=== PATIENT | female | born 1995 | race Caucasian/White ===

== ENCOUNTER 2023-04-10 18:10 | Emergency (ER) | payer MEDICAID, SELFPAY ==
[2023-04-10 18:12] VITALS: BP 134/97; PULSE 65; RESP 19; TEMP 36.6; O2SAT 99; BMI 36.3
--- NOTE | 2023-04-10 18:51 | ED.VIS.DENTA ---
HPI History of Present Illness Chief Complaint: Dental Informant: patient Onset/Context/Timing Onset: Weeks Context: Gradual Onset Timing: Intermittent Quality: Throbbing, aching Location: Left lower molars Worsened by: Nothing Relieved by: NSAIDs Associated Symptoms Assocated Symptom - Dental: jaw swelling, face swelling, cold sensitivity and hot sensitivity; Negative for fever Narrative Narrative: Patient presents with left lower dental pain that has been getting worse over the past couple weeks. Patient recently moved to the area and does not have a dentist. Patient states her pain is throbbing and aching. Patient states it is over the left lower molars. Patient states she has been taking ibuprofen which has been helping until today. Patient admits to some swelling of her jaw and face today. Patient also admits to hot and cold sensitivity. Patient denies any fevers or chills. PFSH PFSH Medical History no medical history no medical history Home Medications clindamycin HCl 300 mg capsule (Cleocin HCl) 300 mg PO Q6H #40 CAPSULES 04/10/23 [Rx Last Taken Unknown] naproxen 500 mg tablet 500 mg PO BID PRN #20 tabs 04/10/23 [Rx Last Taken Unknown] Allergy/AdvReac Type Severity Reaction Status Date / Time amoxicillin Allergy Anaphylaxis Verified 04/10/23 18:30 Penicillins Allergy Anaphylaxis Verified 04/10/23 18:12 Surgical History History of tonsillectomy Social History (Updated 04/10/23 @ 18:[address] Dylon Faulkner DO) Smoking Status: Current every day smoker tobacco type: cigarettes Smoking packs per day: 0.5 Smoking cigarettes per day: 10.0 ROS ROS ED Constitutional Constitutional ED: Denies chills or fever(s) Eyes Eyes: Denies blurry vision or change in vision ENT ENT ED: Denies rhinorrhea or sore throat Cardiovascular Cardiovascular: Denies chest pain or palpitations Respiratory/Chest Respiratory/Chest: Denies cough or dyspnea Gastrointestinal Gastrointestinal: Denies nausea or vomiting Genitourinary Genitourinary ED: Denies dysuria or hematuria Musculoskeletal Musculoskeletal: Reports neck pain; Denies back pain Integumentary Reports rash; Denies abscess Neurologic Neurologic: Denies headache(s) or weakness Allergic/Immunologic Allergic/Immunologic ED: Denies mouth swelling or urticaria EXAM Physical Exam Const Vital Signs: 04/10/23 18:12 Temperature 97.8 F Temperature Source Temporal Pulse Rate 65 Respiratory Rate 19 H Blood Pressure 134/97 H Blood Pressure Mean 109 Pulse Ox 99 Oxygen Delivery Method Room Air Positive well nourished, well developed and obese General Appearance ED: well developed and NAD Nutritional Appearance: obese HEENT Mouth ED: Yes lips normal and Yes tongue normal Mouth: lips normal and tongue normal Teeth and Gingiva: caries and poor dentition Throat: posterior oropharynx normal Neck supple and no JVD General: Negative for anterior neck swelling, tenderness or submandibular swelling Neuro oriented x3, CN's II-XII intact bilaterally, moves all extremities, no focal motor deficits and no sensory deficits noted Sensorium / Orientation: alert Motor Exam: strength 5/5 throughout Psych mental status grossly normal MDM MDM MDM Narrative Medical decision making narrative: Patient was advised that this is most likely an infected dental carry. Patient was instructed to stop taking ibuprofen. Patient was given a prescription for Naprosyn. Patient was also given a prescription for clindamycin due to her penicillin allergy. Patient was given her first dose here. Patient was given a dental referral list. Patient was instructed to follow-up with a dentist in 5 to 7 days. Patient understood and was agreeable with the plan. All questions were answered. Discharge Plan Triage Chief Complaint: Dental ED Provider: Dylon Faulkner Dx/Rx/DC Orders Clinical Impression: Infected dental caries Instructions: ED Dental Pain, ED Dental Cavity Prescriptions: New clindamycin HCl [Cleocin HCl] 300 mg capsule 300 mg PO Q6H Qty: 40 0RF naproxen 500 mg tablet 500 mg PO BID PRN Qty: 20 0RF Primary Care Provider: Care Physician,No Primary Referrals: Care Physician,No Primary [Primary Care Provider] - Dentist,Your [STAFF PHYSICIAN] - 5-7 Days Disposition Disposition: Home, Self Care
[2023-04-10] MEDS: Clindamycin HCl 150 MG Capsule 300 MG PO (19:08)
[2023-04-10] MEDS: Naproxen 250 MG Tablet 500 MG PO (19:08)
== END 2023-04-10 19:11 | disposition home or self-care (01) ==
LOC: ED 19:06
PROVIDERS: Emergency Provider Emergency Medicine; Visit Provider Emergency Medicine
DX: K02.9 Dental caries, unspecified (principal); F17.210 Nicotine dependence, cigarettes, uncomplicated; E66.9 Obesity, unspecified; Z68.36 Body mass index [BMI] 36.0-36.9, adult
CPT/HCPCS: 99283

== ENCOUNTER 2023-04-21 04:09 | Emergency (ER) | payer MEDICAID, SELFPAY ==
[2023-04-21 04:10] VITALS: BP 164/84; PULSE 81; RESP 16; TEMP 36.6; O2SAT 99; BMI 35.2
--- NOTE | 2023-04-21 04:27 | EX.ED.DYSGE1 ---
HPI History of Present Illness Chief Complaint: Foreign Body Informant: patient Narrative Narrative: Woke up today feeling pain in her ear felt something moving. She tried flushing with warm water however states that went deeper. Pain with movement. No history of similar. Prior similar symptoms: No PFSH PFSH Home Medications clindamycin HCl 300 mg capsule (Cleocin HCl) 300 mg PO Q6H #40 CAPSULES 04/10/23 [Rx Last Taken Unknown] naproxen 500 mg tablet 500 mg PO BID PRN #20 tabs 04/10/23 [Rx Last Taken Unknown] Allergy/AdvReac Type Severity Reaction Status Date / Time amoxicillin Allergy Anaphylaxis Verified 04/21/23 04:12 Penicillins Allergy Anaphylaxis Verified 04/21/23 04:12 Surgical History History of tonsillectomy Social History Smoking Status: Current every day smoker tobacco type: cigarettes ROS ROS ED Constitutional Constitutional ED: Denies chills, fever(s) or sweats Eyes Eyes: Denies change in vision ENT ENT ED: Reports ear pain; Denies dysphagia or sore throat Cardiovascular Cardiovascular: Denies chest pain, leg edema, palpitations or racing heartbeat Respiratory/Chest Respiratory/Chest: Denies cough, dyspnea or dyspnea on exertion Gastrointestinal Gastrointestinal: Denies abdominal pain, diarrhea, nausea or vomiting Genitourinary Genitourinary ED: Denies dysuria, hematuria or urinary frequency Musculoskeletal Musculoskeletal: Denies back pain, extremity pain or neck pain Integumentary Denies rash or wounds Neurologic Neurologic: Denies headache(s), paresthesias or weakness EXAM Physical Exam Const Vital Signs: 04/21/23 04:10 Temperature 97.8 F Temperature Source Temporal Pulse Rate 81 Respiratory Rate 16 Blood Pressure 164/84 H Blood Pressure Mean 110 Pulse Ox 99 Positive well nourished and well developed General Appearance ED: well developed and NAD HEENT Reports moist mucous membranes HEENT Narrative: Left ear: Normal. Right ear: After viscous lidocaine placed and observed, evaluation noted insect, removed with suction. TM intact post suctioning and removal. normocephalic and atraumatic Eyes PERRL, EOMs intact bilaterally and conjunctivae normal General Eye ED: Yes normal appearance of both eyes Neck no lymphadenopathy and supple General: Negative for tenderness Chest Wall Chest: Negative for tenderness Resp normal respiratory effort and normal air movement Effort and Inspection: symmetric chest movement; Negative for respiratory distress Cardio regular rate, regular rhythm and no murmurs Peripheral Pulses: pulses 2+ throughout GI normal to inspection, nondistended, normoactive bowel sounds and non-tender Palpation: Negative for guarding or rebound tenderness present Back/Spine no CVA tenderness and no thoracic nor lumbar tenderness Extremity normal to inspection General Extremety ED: Negative for edema or tenderness General Extremity: Negative for edema Neuro oriented x3 and no sensory deficits noted Sensorium / Orientation: awake and alert Skin no rashes or lesions noted and no wounds MDM MDM MDM Narrative Medical decision making narrative: Interventions / MDM: Differential diagnosis: Right ear pain, foreign body Diagnosis considered but do not suspect: N/A My EKG interpretation: N/A Imaging independently reviewed and interpreted by myself: N/A External documents reviewed: N/A Test considered but not ordered:N/A ED course: History concerns for insect right ear. Viscous lidocaine placed, removal with Carroll tip. TM intact post removal. Outpatient follow-up as needed. Procedure note: Verbal consent. Viscous lidocaine placed in the ear and allowed to sit, ear evaluation did note insect external canal. 10 [place] Carroll tip to suctioning was placed, removal fluid and insect. Residual earwax also removed. TM evaluation was intact with no signs of injury. Patient tolerated procedure well. Re-evaluation: stable Disposition discussed with patient/family/significant other: patient Case discussed with consulting clinician: N/A This note was generated with [employer] dictation software. It may contain incorrect words, spelling, and punctuation that were not noted in checking the note before signing. Discharge Plan Triage Chief Complaint: Foreign Body ED Provider: Vic Fink Dx/Rx/DC Orders Clinical Impression: Foreign body in right ear, initial encounter Instructions: ED Foreign Body, Ear Canal (Removed) Prescriptions: No Action clindamycin HCl [Cleocin HCl] 300 mg capsule 300 mg PO Q6H Qty: 40 0RF naproxen 500 mg tablet 500 mg PO BID PRN Qty: 20 0RF Primary Care Provider: Care Physician,No Primary Referrals: Michael Willoughby MD [Med Staff - Active Staff] - As Needed Care Physician,No Primary [Primary Care Provider] - Activity Restrictions/Additional Instructions: Insect in ear removed. No signs of injury. Disposition Disposition: Home, Self Care Discharge Date/Time: 04/21/23 05:09
== END 2023-04-21 05:09 | disposition home or self-care (01) ==
PROVIDERS: Emergency Provider Emergency Medicine; Visit Provider Emergency Medicine
DX: T16.1XXA Foreign body in right ear, initial encounter (principal); F17.210 Nicotine dependence, cigarettes, uncomplicated; X58.XXXA Exposure to other specified factors, initial encounter
CPT/HCPCS: 99282

== ENCOUNTER 2023-10-03 14:01 | Emergency (ER) | payer MEDICAID, SELFPAY ==
[2023-10-03 14:02] VITALS: BP 120/67; PULSE 80; RESP 18; TEMP 36.4; O2SAT 97; BMI 34.7
--- NOTE | 2023-10-03 14:55 | RAD_ITS ---
INDICATION: fall EXAMINATION/TECHNIQUE: X-RAY - XR Ribs Unilateral W/ PA Chest Min 3 Views COMPARISON: No relevant prior comparison study available FINDINGS: SOFT TISSUES: No soft tissue swelling or gas. BONES: No displaced fracture. No sclerotic or destructive changes observed. VISUALIZED LUNGS: Clear. No pneumothorax. RAD/Ribs Uni Min 3V w/PA Chest IMPRESSION: No evidence of displaced rib fracture. Electronically Signed: Nitin Flannery MD at 15:36 EST ,
--- NOTE | 2023-10-03 14:55 | EX.ED.UPPERE ---
HPI <JODEE Barnes - Last Filed: 10/03/23 16:00> History of Present Illness Chief Complaint: Upper Extremity Injury Narrative Narrative: Patient is a 28-year-old female with no significant ankle history presents to the emergency department after mechanical fall. Patient states he fell down 3 steps jamming her left elbow. Patient also states she landed on her left ribs. Patient denies any other injury, denies any head or neck injury. She denies any LOC. She is on any blood thinners [facility] <JODEE Barnes - Last Filed: 10/03/23 16:00> [facility] Medical History (Updated 10/03/23 @ 15:59 by JODEE Barnes) Anxiety Depression Home Medications gabapentin 300 mg capsule 300 mg PO BID 10/03/23 [History Last Taken Unknown] ibuprofen 600 mg tablet 600 mg PO Q6H PRN PRN pain #20 TABLETS 10/03/23 [Rx Last Taken Unknown] Allergy/AdvReac Type Severity Reaction Status Date / Time amoxicillin Allergy Anaphylaxis Verified 10/03/23 14:02 Penicillins Allergy Anaphylaxis Verified 10/03/23 14:02 Surgical History History of tonsillectomy Social History Smoking Status: Current every day smoker tobacco type: cigarettes ROS <JODEE Barnes - Last Filed: 10/03/23 16:00> ROS ED ROS Narrative Constitutional: Negative for fever, chills, weight loss, weakness Eyes: Negative for vision loss, vision change, double vision ENT: Negative for any sore throat, ear pain, congestion Cardiovascular: Negative for any chest pain, tightness, palpitations Respiratory: Negative for any cough, sputum production, hemoptysis, dyspnea, dyspnea on exertion, orthopnea Gastrointestinal: Negative for any abdominal pain, nausea, vomiting, diarrhea, constipation, blood in stool, blood in vomit : Negative for any urinary frequency, dysuria, retention, blood in urine Muscle skeletal: Negative for any myalgias, arthralgias, neck pain, back pain. Left elbow pain, left rib pain Neurological: Negative for any headache, syncope, numbness or tingling, dizziness Skin: Negative for any rashes, lumps, itching, abrasions, lacerations Psychiatric: Negative for any depression, anxiety, stress, suicidal ideation, homicidal ideation Hematologic: Negative for any easy bruising, excessive bruising, easy bleeding Allergies: Negative for any eczema, hives, rash EXAM <JODEE Barnes - Last Filed: 10/03/23 16:00> Physical Exam Narrative Exam Narrative: Vital signs reviewed. HEET: Head normocephalic atraumatic, TMs clear bilaterally. Posterior pharynx is clear, moist mucous membranes. Nares clear bilaterally. Neck: Supple with no lymphadenopathy or tenderness. No signs of meningismus. Cardiac: Regular rate and rhythm no murmurs gallops or rubs, equal peripheral pulses bilaterally. Respiratory: Lungs clear to auscultation bilaterally. Positive left-sided chest tenderness, negative for any crepitus, ecchymosis. Clear breath sounds in all quadrants Abdomen: Soft, nontender, nondistended. No abdominal bruit or pulsatile masses. No hepatosplenomegaly Extremities: Patient no ecchymosis, edema. Patient does have pain to the proximal radial head. Patient has pain with movement of the elbow. Neuro: Cranial nerves II through XII intact, no focal neurological deficits. Skin: Clean dry and intact with no rash, purpura, petechiae, vesicles or pustules. Backs/flank: No CVA tenderness, no midline spinal tenderness, no deformity. Psych: Normal mood and affect. No SI, HI or acute psychosis. Const Vital Signs: 10/03/23 14:02 Temperature 97.6 F L Temperature Source Temporal Pulse Rate 80 Respiratory Rate 18 Blood Pressure 120/67 Blood Pressure Mean 84 Pulse Ox 97 Oxygen Delivery Method Room Air MDM <JODEE Barnes - Last Filed: 10/03/23 16:00> [facility] Treatment and Re-Evaluation Narrative: Patient appears generally well, patient appears nontoxic, vital signs are stable. Presenting to the emergency department with left elbow pain, left rib pain. Patient did receive 3 views of left elbow interpreted by ER physician showed no evidence of acute fracture. X-rays of the left ribs the chest shows no evidence of displaced rib fracture. At this time, patient will be given a prescription for ibuprofen, she will be given a sling for her left arm. She is instructed take it out multiple times a day and perform general range of motion activities. All questions were answered, she instructed return for any worsening symptoms. <Dr. Titi Zaragoza, DO - Last Filed: 10/03/23 22:15> [facility] Narrative Medical decision making narrative: Patient appears generally well, patient appears nontoxic, vital signs are stable. Presenting to the emergency department with left elbow pain, left rib pain. Patient did receive 3 views of left elbow interpreted by ER physician showed no evidence of acute fracture. X-rays of the left ribs the chest shows no evidence of displaced rib fracture. At this time, patient will be given a prescription for ibuprofen, she will be given a sling for her left arm. She is instructed take it out multiple times a day and perform general range of motion activities. All questions were answered, she instructed return for any worsening symptoms. This patient was seen with a PA/[facility] Individually assessed they patient including history and physical. I have reviewed everything on the chart that is available and agree with the documentation provided by the PA/[facility] including discussion about the assessment, treatment plan, discussion, and return precautions. With left elbow pain and left rib pain after mechanical fall. X-rays of the left elbow and left ribs on my interpretation no acute fractures. Patient counseled on findings. I recommended Tylenol and ibuprofen. She was given 1 [place] here. Placed in a sling for comfort. She is counseled to range of motion exercises. Ice and heat. Discharge Plan Triage Chief Complaint: Upper Extremity Injury ED Midlevel Provider: Adeel Carlton ED Provider: Titi Zaragoza Dx/Rx/DC Orders Clinical Impression: Contusion of elbow, Contusion of rib, Fall Instructions: Bruises (Contusions), ED Contusion, Elbow Prescriptions: New ibuprofen 600 mg tablet 600 mg PO Q6H PRN PRN (Reason: pain) Qty: 20 0RF No Action gabapentin 300 mg capsule 300 mg PO BID Primary Care Provider: Care Physician,No Primary Referrals: Care Physician,No Primary [Primary Care Provider] - Activity Restrictions/Additional Instructions: Take the arm out of the sling several times a day to do range of motion exercises. Follow-up outpatient. Disposition Disposition: Home, Self Care Discharge Date/Time: 10/03/23 16:14
[2023-10-03] MEDS: HYDROcodone Bitartrate/Apap 5/325 Tablet PO (15:01)
--- NOTE | 2023-10-03 15:17 | RAD_ITS ---
INDICATION: fall EXAMINATION/TECHNIQUE: X-RAY - LEFT XR Elbow Min 3 Views COMPARISON: No relevant prior comparison study available FINDINGS: SOFT TISSUES: No soft tissue swelling or gas. No radiopaque foreign body. BONES/JOINTS: There is no displacement of the anterior or posterior fat pads. No acute fracture or subluxation. Normal alignment. Preservation of the joint space. No sclerotic or destructive changes observed. RAD/Elbow min 3 Views IMPRESSION: No evidence of acute fracture. Electronically Signed: Nitin Flannery MD at 15:34 EST ,
== END 2023-10-03 16:14 | disposition home or self-care (01) ==
PROVIDERS: Emergency Provider Student in an Organized Health Care Education/Training Program; Visit Provider Student in an Organized Health Care Education/Training Program
DX: S50.02XA Contusion of left elbow, initial encounter (principal); S20.219A Contusion of unspecified front wall of thorax, initial encounter; F17.210 Nicotine dependence, cigarettes, uncomplicated; W10.9XXA Fall (on) (from) unspecified stairs and steps, initial encounter
CPT/HCPCS: 71101; 73080; 99283

== ENCOUNTER 2025-05-07 15:13 | Emergency (ER) | payer MEDICAID, SELFPAY ==
[2025-05-07 15:14] VITALS: BP 138/90; PULSE 76; RESP 16; TEMP 35.6; O2SAT 98; BMI 31.7
[2025-05-07 15:46] LABS: Hematocrit 41.0 % (37-47); Hemoglobin 14.3 g/dL (12.0-15.0); Immature Granulocytes Count 0.030 X10^3/uL (0.0-0.0); Mean Corp Hgb Conc 34.9 g/dL (32-36); Mean Corpuscular Volume 82.0 fL (81-99); Mean Platelet Vol. 10.2 fl (6.2-12.0); NRBC Flagged by Analyzer 0 % (0-5); Platelet Count 364 K/mm3 (150-450); RBC Distribution Width CV 12.3 % (11.6-14.6); RBC Distribution Width SD 36.8 fl (35.1-43.9); Red Blood Count 5.00 M/mm3 (4.2-5.4); White Blood Count 10.0 K/mm3 (4.4-11.0)
[2025-05-07] MEDS: 0.9% Normal Saline (1000mL) 1,000 ML 1000 ML IV ×2 (16:01→17:00)
--- NOTE | 2025-05-07 16:05 | EDS_ITS ---
HPI History of Present Illness Chief Complaint: Nausea/Vomiting/Diarrhea Detail of Chief Complaint: Illness with nausea, vomiting and diarrhea with onset May 03 Informant: patient and spouse/S.O. Onset/Context/Timing Onset: Days Context: Sudden Onset Timing: Intermittent Quality: Initially diarrhea, now nausea and vomiting and generalized weakness Location: Systemic symptoms and predominantly GI Current Severity: Mild Maximum Severity: Severe Worsened by: Nothing Relieved by: Nothing Associated Symptoms Associated Symptoms: Subjective fever, chills, diaphoresis Narrative Narrative: Patient is a 30-year-old female. She completed her menses on May 05. Her menses was normal for her. She denies signs or symptoms of . She d enies double vision, blurred vision or change in vision. She does report bifrontal head discomfort. She also reports light sensitivity. She does complain of ear pain bilaterally. She denies ringing in her ears or decreased hearing. She denies drainage from her ears. She denies rhinorrhea. She denies postnasal drainage. She had some mild congestion initially. She does endorse a sore throat. She has a slight cough that is nonproductive. She denies chest discomfort of any type. She has not had diarrhea since . She has not had vomiting today. The vomiting started after the diarrhea. She denies any ill contact. She denies coffee-ground emesis or hematemesis. Patient does endorse decreased urine output, thirst and dry mouth. Her urine is slightly darker than normal. She denies any blood or mucus in her diarrhea. She has no history of IBS or IBD. She has not noted any skin lesions. She does complain of myalgias arthralgias. Prior similar symptoms: Yes Recent Illness/Hospitalization: No [facility] Medical History Anxiety Depression Home Medications ?Medication ?Instructions ?Recorded ?Last Taken ?Type ondansetron 4 mg disintegrating 4 mg PO Q8H PRN PRN Na usea #6 tabs 05/07/25 Unknown Rx tablet Allergy/AdvReac Type Severity Reaction Status Date / Time amoxicillin Allergy Anaphylaxis Verified 10/03/23 14:02 Penicillins Allergy Anaphylaxis Verified 10/03/23 14:02 Surgical History History of tonsillectomy Social History (Updated 05/07/25 @ 16:[address] Galindo Self MD) household members: significant other Smoking Status: Current every day smoker tobacco type: cigarettes and e- cigarettes ROS ROS ED Constitutional Constitutional ED: Reports chills, fever(s), subjective and sweats; Denies weight loss Eyes Eyes: Reports other Details: Positive photophobia ; Denies blurry vision, change in vision or diplopia ENT ENT ED: Reports other Details: Nasal congestion that is resolved ; Denies ear pain, rhinorrhea or sore throat Cardiovascular Cardiovascular: Denies chest pain, orthopnea, palpitations or paroxysmal nocturnal dyspnea Respiratory/Chest Respiratory/Chest: Denies cough, dyspnea, dyspnea on exertion, orthopnea or paroxysmal nocturnal dyspnea Gastrointestinal Gastrointestinal: Reports abdominal pain, diarrhea, nausea and vomiting; Denies constipation or melena Genitourinary Genitourinary ED: Reports other Details: Detailed HPI narrative ; Denies dysuria, hematuria or urinary frequency Musculoskeletal Musculoskeletal: Reports arthralgias and myalgias; Denies back pain Integumentary Denies rash Neurologic Neurologic: Reports weakness; Denies headache(s) or paresthesias Psychiatric Psychiatric: Denies anxiety Endocrine Endocrinology: Denies cold intolerance or heat intolerance Hematologic/Lymphatic Hematologic/Lymphatic: Reports systems reviewed and no addt'l complaints, except as documented Allergic/Immunologic Allergic/Immunologic ED: Denies mouth swelling or tongue swelling EXAM Physical Exam Const Vital Signs: 05/07/25 15:14 Temperature 96.1 F L Temperature Source Temporal Pulse Rate 76 Respiratory Rate 16 Blood Pressure 138/90 H Blood Pressure Mean 106 Pulse Ox 98 Oxygen Delivery Method Room Air Positive well nourished and well developed Constitutional Narrative: BMI is 31.7. She appears ill. She is flushed. She is slightly diaphoretic. General Appearance ED: well developed; Negative for cyanotic, diaphoretic, NAD or pallor HEENT Reports dry mucous membranes HEENT Narrative: Head is atraumatic normocephalic. Ears normal. TMs normal. External auditory canal normal. Nares patent with no discharge. Posterior pharynx out erythema or exudate. Uvula midline. No deviation tongue or protrusion. Mouth ED: Yes dry mucous membranes Mouth: dry mucous membranes Eyes PERRL and EOMs intact bilaterally General Eye ED: Negative for pale conjunctiva or scleral icterus Neck no lymphadenopathy, supple and no JVD Chest Wall inspection of chest normal and palpation of chest normal Resp normal respiratory effort and clear to auscultation bilaterally Cardio regular rate, regular rhythm, S1 normal heart sound, S2 normal heart sound and no murmurs GI normal to inspection, nondistended, normoactive bowel sounds, non-tender, non- distended and no masses; Negative for hepatosplenomegaly Inspection: abdominal distention Auscultation: hypoactive bowel sounds Palpation: soft and tender periumbilical Back/Spine no CVA tenderness Thoracic Spine / Upper Back: Negative for thoracic spinal tenderness Lumbar Spine / Lower Back: Negative for lumbar spinal tenderness Extremity normal to inspection General Extremety ED: Negative for edema or tenderness General Extremity: Negative for edema Neuro oriented x3, CN's II-XII intact bilaterally and no sensory deficits noted Sensorium / Orientation: alert Motor Exam: strength 5/5 throughout Psych Mood & Affect: depressed Skin no rashes or lesions noted, no wounds and No skin turgor normal Skin Narrative: Patient appears flushed. She is diaphoretic. General Skin Exam: Negative for elasticity normal, jaundice or pallor MDM MDM MDM Narrative Medical decision making narrative: Suspect a viral illness. Clinically she is dehydrated. 1 L of normal saline was ordered. Zofran was ordered for her nausea. Will obtain CBC to assess H&H white count differential. Electrolyte panel assess renal function, CO2 anion gap and electrolytes and specifically evaluate for hypokalemia. Since she reports a normal menses no signs or symptoms of and she is presently not menstruating test was not obtained. Lab Data Attestation: I reviewed the patient's lab results. Lab results narrative: CBC is normal. Serum test is negative. Electrolytes reveal a high anion gap acidosis otherwise unremarkable. Labs: Laboratory Results - last 24 hr 05/07/25 05/07/25 15:30 17:35 WBC 10.0 RBC 5.00 Hgb 14.3 Hct 41.0 MCV 82.0 MCH 28.6 MCHC 34.9 RDW Std Deviation 36.8 RDW Coeff of Olga 12.3 Plt Count 364 MPV 10.2 Immature Gran % (Auto) 0.300 Neut % (Auto) 49.6 Lymph % (Auto) 39.4 [place] % (Auto) 8.6 Eos % (Auto) 1.3 Baso % (Auto) 0.8 Absolute Neuts (auto) 4.9 Absolute Lymphs (auto) 3.93 Nucleated RBC % 0 Sodium 135 Potassium 3.4 Chloride 100 Carbon Dioxide 18.2 L Anion Gap 17 H BUN 9 Creatinine 1.07 Estim Creat Clear Calc 88.66 Est GFR (MDRD) Non-Af 71 BUN/Creatinine Ratio 8.3 L Glucose 93 Calcium 10.4 Serum , Qual NEGATIVE Urine Color Yellow Urine Clarity Cloudy Urine pH 6.0 Ur Specific [place] 1.020 Urine Protein 30 H Urine Glucose (UA) Normal Urine Ketones 5 H Urine Occult Blood 250 H Urine Nitrite Negative Urine Bilirubin Negative Urine Urobilinogen 1 H Ur Leukocyte Esterase 500 H Urine RBC 10-25 SEEN Urine WBC 25-50 SEEN Ur Squamous Epith Cells 10-25 SEEN Urine Bacteria 3+ Urine Mucus 0 SEEN Urinalysis consistent with a contaminated specimen. Specifically he is slightly elevated. There is protein urea and hematuria as well as ketones. Treatment and Re-Evaluation :: Nurse states the patient had minimal urine output. Approximately 10 cc. Second liter of normal saline was ordered. Patient feels much better after second liter. She is sitting up smiling. She is no longer pale in appearance. She was informed of results. She be discharged to home with prescription for Zofran. Discharge Plan Triage Chief Complaint: Nausea/Vomiting/Diarrhea ED Provider: Galindo Self Dx/Rx/DC Orders Clinical Impression: Nausea, vomiting and diarrhea, Intermittent generalized abdominal pain, High anion gap metabolic acidosis, Acute dehydration, Elevated blood-pressure reading without diagnosis of hypertension Instructions: ED Gastroenteritis, Viral (Adult) Prescriptions: New ondansetron 4 mg tablet,disintegrating 4 mg PO Q8H PRN PRN (Reason: Nausea) Qty: 6 0RF Primary Care Provider: Care Physician,No Primary Referrals: Care Physician,No Primary [Primary Care Provider] - Activity Restrictions/Additional Instructions: Follow-up with your doctor if no improvement in 2 to 3 days. The name of your doctors on your insurance card issued to you by [employer] Print Language: Brazilian Disposition Disposition: Home, Self Care
[2025-05-07 16:11] LABS: Internal QC Validated? YES +Cl - CLEAR BKGD; Pregnancy, Serum, hCG Quali. NEGATIVE Negative; Record Kit Lot#, Serum Preg. 0000947241
--- OUTSIDE RECORDS SUMMARY | 2025-05-07 16:34 | XMS RPT_ITS | CCD ---
Author Organization [facility] Care Team Providers Care Director Of Claims Name Role Phone BRUCE MENDEZ Primary Care Unavailable LAVERN TURCIOS Attending Unavailable ANDREA, BRUCE Primary Care Unavailable LAVERN TURCIOS Attending Unavailable BRUCE MENDEZ Primary Care Unavailable BRIELLE ENGLE Attending Unavailable BRIELLE ENGLE Attending Unavailable BRIELLE ENGLE Referring Unavailable ANDREA, BRUCE Primary Care Unavailable ANDREA, BRUCE Primary Care Unavailable JAZLYN HOLLEY Attending Unavailable JAZLYN HOLLEY Attending Unavailable LEYDI JAZLYN Referring Unavailable ANDREA, BRUCE Primary Care Unavailable ANDREA, BRUCE Primary Care Unavailable LAVERN TURCIOS Attending Unavailable LAVERN TURCIOS Attending Unavailable ANDREA, BRUCE Primary Care Unavailable ANDREA, BRUCE Primary Care Unavailable ITZEL EMANUEL Attending Unavailable ANDREA, BRUCE Primary Care Unavailable VIC BROCK Attending Unavailable VIC BROCK Attending Unavailable VIC BROCK Referring Unavailable ANDREA, BRUCE Primary Care Unavailable ANDREA, BRUCE Primary Care Unavailable MARLI TADEO Attending Unavailable ANDREA, BRUCE Primary Care Unavailable SEAGRAVES, ANITA~[id number] SEAGRAVES Attending Unavailable SEAGRAVES, ANITA~[id number] SEAGRAVES Attending Unavailable SEAGRAVES, ANITA~[id number] SEAGRAVES Referring Unavailable ANDREA, BRUCE Primary Care Unavailable SEAGRAVES, ANITA~[id number] SEAGRAVES Referring Unavailable ANDREA, BRUCE Primary Care Unavailable SEAGRAVES, ANITA~[id number] SEAGRAVES Attending Unavailable SEAGRAVES, ANITA~[id number] SEAGRAVES Attending Unavailable SEAGRAVES, ANITA~[id number] SEAGRAVES Referring Unavailable ANDREA, BRUCE Primary Care Unavailable SEAGRAVES, ANITA~[id number] SEAGRAVES Attending Unavailable SEAGRAVES, ANITA~[id number] SEAGRAVES Referring Unavailable BRUCE MENDEZ Primary Care Unavailable BRUCE MENDEZ Primary Care Unavailable MANOHAR VICENTE Attending Unavailable MANOHAR VICENTE Attending Unavailable MANOHAR VICENTE Referring Unavailable BRUCE MENDEZ Primary Care Unavailable Care Physician, No Primary Primary Care Unava ilable Dylon Faulkner Attending Unavailable Vic Fink Attending Unavailable Care Physician, No Primary Primary Care Unava ilable Care Physician, No Primary Primary Care Unava ilable Titi Zaragoza Attending Unavailable Unavailable Primary Care Provider Unavailabl e BOWDEN, CHELSI Referring Unavailable BOWDEN, CHELSI Attending Unavailable BOWDEN, CHELSI Attending Unavailable BOWDEN, CHELSI Referring Unavailable BOWDEN, CHELSI Attending Unavailable BOWDEN, CHELSI Referring Unavailable BOWDEN, CHELSI Referring Unavailable Bruce Flower Attending Unavailable Bruce Flower Attending Unavailable ProviderDony Attending Provider Unavaila ble Allergies Allergy Classification Reported Allergen(s) Allergy Type Date of Onset Reaction(s) Facility (11 sources) Amoxicillin; Translations: [AMOXICILLIN] Drug Allergy 3 Hives [facility] Repository (11 sources) Penicillins; Translations: [PENICILLINS] Propensity to adverse reactions to drug (disorder) 3 Anaphylaxis [facility] Medications Current Medications Medication Drug Class(es) Dates Sig (Normalized) Sig (Original) ascorbic acid 500 mg oral tablet (2 sources) Vitamin C Start: 06-17-2024 take 1 tablet by mouth once daily ascorbic acid, vitamin C, (VITAMIN C) 500 mg tablet Take 1 tablet by mouth once daily. 90 tablet 06/17/2024 Active chlorhexidine gluconate 1.2 mg/ml mouthwash (1 source) Start: 11-04-2024 Chlorhexidine Gluconate (Peridex) 0.12 % mouthwash Active 15 ML MUCOUS MEM TWICE A DAY 473 November 04, 2024 12:00am clindamycin 300 mg oral capsule (2 sources) Lincosamide Antibacterial Start: 11-04-2024 take 1 capsule by mouth every eight hours Clindamycin Hcl 300 mg capsule Active 300 MG ORAL Q8H 21 November 04, 2024 12:00am Start: 04-10-2023 take 1 capsule by mo uth every six hours Clindamycin Hcl (Cleocin Hcl) 300 mg capsule Active 300 MG PO EVERY 6 HOURS 40 April 10, 2023 12:00am 24 hr desvenlafaxine succinate 50 mg extended release oral tablet (3 sources) Serotonin and Norepinephrine Reuptake Inhibitor Start: 11-04-2024 take 1 tablet by mouth once daily Desvenlafaxine Succinate 50 mg tablet extended release 24 hr Active MG ORAL DAILY November 04, 2024 12:00am Start: 05-02-2024 take 1 tablet by marycarmen th once daily, then take 1 tablet by mouth every twenty-four hours desvenlafaxine ER (PRISTIQ) 50 mg 24 hr tablet Take 50 mg by mouth once daily. 05/02/2024 Active doxycycline hyclate 100 mg oral tablet (1 source) Tetracycline-class Drug Start: 06-17-2024 End: 06-24-2024 take 1 tablet by mouth twice daily doxycycline (VIBRA-TABS) 100 mg tablet Take 1 tablet by mouth two times a day for 7 days. 14 tablet 06/17/2024 06/24/2024 Active ferrous sulfate 325 mg oral tablet (2 sources) Start: 06-17-2024 take 1 tablet by mouth once daily ferrous sulfate 325 mg (65 mg iron) tablet Take 1 tablet by mouth once daily. 90 tablet 06/17/2024 Active gabapentin 100 mg oral capsule (6 sources) Anti-epileptic Agent Start: 11-04-2024 take 1 mg by mouth three times daily Gabapentin 100 mg capsule Active MG ORAL THREE TIMES A DAY November 04, 2024 12:00am Start: 10-21-2023 gabapentin (NE URONTIN) 100 mg capsule 10/21/2023 Active levonorgestrel 0.728009 mg/hr intrauterine system (3 sources) Progestin, Progestin-containing Intrauterine Device Start: 07-11-2024 End: 07-09-2032 levonorgestrel (MIRENA) 21 mcg/24 hr (8 yrs) 52 mg IUD 1 Each by INTRAUTERINE route as directed. 1 Each 07/11/2024 07/09/2032 Active Start: 07-11-2024 End: 07-11-2024 1 Each, INTRAUTERINE, ONCE ( UP TO 30 DAYS AMB), 1 dose, On 07/11/24 at 1400, Hazardous Potential Reproductive Risk Drug: Use appropriate PPE. naproxen 500 mg oral tablet (1 source) Nonsteroidal Anti-inflammatory Drug Start: 04-10-2023 take 500 mg by mouth twice daily as needed Naproxen Active 500 MG PO TWICE DAILY NEEDED April 10, 2023 12:00am predniSONE 20 mg oral tablet (1 source) Start: 11-04-2024 take 2 tablets by mouth once daily Prednisone 20 mg tablet Active 40 MG ORAL DAILY 10 November 04, 2024 12:00am Problems Active Problems Problem Classification Problem Date Documented Date Episodic/Chronic Abdominal pain (5 sources) Epigastric pain; Translations: [Pain in female pelvis] Onset: 12-03-2018 06-03-2024 Episodic Disorders of teeth and jaw (3 sources) Dental caries; Translations: [Dental caries, unspecified] Onset: 04-16-2023 04-18-2023 Episodic Esophageal disorders (1 source) Gastro-esophageal reflux disease without esophagitis; Translations: [Gastro-esophageal reflux disease without esophagitis] Onset: 05-26-2018 Chronic Headache; including migraine (1 source) Cyclical vomiting, not intractable; Translations: [Cyclical vomiting, not intractable] Onset: 12-03-2018 Chronic Immunizations and screening for infectious disease (3 sources) Patient encounter status; Translations: [Encounter for screening for human papillomavirus (HPV)] 06-03-2024 Episodic Menstrual disorders (1 source) Irregular periods; Translations: [Irregular menstruation, unspecified] 07-11-2024 Chronic Other endocrine disorders (1 source) Polycystic ovary syndrome; Translations: [Polycystic ovarian syndrome] 06-17-2024 Chronic Other female genital disorders (2 sources) Abnormal uterine bleeding; Translations: [Abnormal uterine and vaginal bleeding, unspecified] 06-03-2024 Chronic Other female genital disorders (1 source) Abnormal uterine and vaginal bleeding, unspecified; Translations: [Abnormal uterine bleeding (AUB)] Onset: 06-03-2024 Chronic Other female genital disorders (3 sources) Pain on movement of cervix; Translations: [Unspecified condition associated with female genital organs and menstrual cycle] 06-03-2024 Episodic Other female genital disorders (1 source) Unspecified condition associated with female genital organs and menstrual cycle; Translations: [CMT (cervical motion tenderness)] Onset: 06-10-2024 Episodic Other injuries and conditions due to external causes (1 source) Foreign body in ear; Translations: [Foreign body in right ear, initial encounter] 04-21-2023 Episodic Other injuries and conditions due to external causes (1 source) Unspecified injury of left elbow, initial encounter; Translations: [Unspecified injury of left elbow, initial encounter] Onset: 10-08-2023 Episodic Other lower respiratory disease (1 source) Cough; Translations: [Cough] Onset: 01-24-2019 Episodic Other screening for suspected conditions (not mental disorders or infectious disease) (1 source) Cancer cervix screening status; Translations: [Encounter for screening for malignant neoplasm of cervix] 06-03-2024 Episodic Other upper respiratory disease (1 source) Nasal congestion; Translations: [Nasal congestion] Onset: 01-23-2019 Episodic Residual codes; unclassified (1 source) Unprotected sexual intercourse; Translations: [High risk heterosexual behavior] 06-03-2024 Episodic Residual codes; unclassified (1 source) Family history of malignant neoplasm of uterus; Translations: [Family history of malignant neoplasm of other genital organs] 06-03-2024 Episodic Residual codes; unclassified (1 source) Family history of malignant neoplasm of ovary; Translations: [Family history of malignant neoplasm of ovary] 06-03-2024 Episodic Residual codes; unclassified (1 source) Family history of breast cancer; Translations: [Family history of malignant neoplasm of breast] 06-03-2024 Episodic Residual codes; unclassified (1 source) High risk heterosexual behavior; Translations: [Unprotected sexual intercourse] Onset: 06-03-2024 Episodic Residual codes; unclassified (1 source) Pain, unspecified; Translations: [Pain, unspecified] Onset: 03-08-2018 Urinary tract infections (1 source) Acute cystitis with hematuria; Translations: [Acute cystitis with hematuria] Onset: 12-03-2018 Episodic Past or Other Problems Problem Classification Problem Date Documented Date Episodic/Chronic Acute bronchitis (1 source) Acute bronchitis, unspecified; Translations: [Acute bronchitis, unspecified] Onset: 10-22-2018 Episodic Fever of unknown origin (1 source) Fever, unspecified; Translations: [Fever, unspecified] Onset: 10-09-2018 Episodic Genitourinary symptoms and ill-defined conditions (1 source) Dysuria; Translations: [Dysuria] Onset: 06-21-2018 Episodic Inflammatory diseases of female pelvic organs (1 source) Abscess of vulva; Translations: [Abscess of vulva] Onset: 08-03-2018 Episodic Malaise and fatigue (1 source) Other malaise; Translations: [Other malaise] Onset: 10-09-2018 Episodic Nausea and vomiting (1 source) Bilious vomiting; Translations: [Bilious vomiting] Onset: 05-26-2018 Episodic Noninfectious gastroenteritis (1 source) Noninfective gastroenteritis and colitis, unspecified; Translations: [Noninfective gastroenteritis and colitis, unspecified] Onset: 03-08-2018 Episodic Nonspecific chest pain (1 source) Chest pain, unspecified; Translations: [Chest pain, unspecified] Onset: 03-20-2018 Episodic Other injuries and conditions due to external causes (1 source) Foreign body in right ear, initial encounter; Translations: [Foreign body in right ear, initial encounter] Onset: 04-27-2023 Episodic Sprains and strains (1 source) Strain of muscle and tendon of front wall of thorax, initial encounter; Translations: [Strain of muscle and tendon of front wall of thorax, initial encounter] Onset: 03-20-2018 Episodic Viral infection (1 source) Viral infection, unspecified; Translations: [Viral infection, unspecified] Onset: 10-09-2018 Episodic Results Test Name Value Interpretation Reference Range [facility]il [facility] Urgent Care Noteon Urgent Care Note [facility] [address] [address] Urgent Care Note Signed Patient: Cherelle Cosme MR#: [id number] : 1995 Acct: [id number] Age/Sex: 29 / F Loc: [facility] Date of Service: 11/04/[address]: 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 cc: Intake Vital Signs ([facility]) 11/04/24 18:37 Weight 95 kg BP 127/80 Respiration 16 Pulse 63 Temp 97 F Pulse Oximetry (%) 96 Intake Visit Reasons: mouth pain BP greater than 140/90: No Is patient in acute pain: Yes Allergies amoxicillin Allergy (Severe, Verified 11/04/24 18:40) Anaphylaxis Penicillins Allergy (Verified 11/04/24 18:40) Anaphylaxis Smoking risk assessment performed?: No Medications - Last Reconciled 11/04/24 by Shelly Christensen LPN desvenlafaxine succinate ER mg ORAL DAILY gabapentin mg ORAL TID Is last menstrual period known: Yes Last menstrual period: 10/24/24 Specific Travel Risk - COVID-19 Travel from high risk country; contact w/ high risk person(s): No COVID-19 Symptoms: No PHQ-2/9 . Over the last 2 weeks, how often have you been bothered by any of the following problems? 1. Little interest or pleasure in doing things: not at all 2. Feeling down, depressed, or hopeless: not at all PHQ-2: Total score: 0 9. Thoughts that you would be better off or of hurting yourself in some way: not at all 0-4 None-Minimal, 5-9 Mild, 10-14 Moderate, 15-19 Moderately Severe, 20-27 Severe If #9 is positive, and questions 3-10 are complete, then proceed to the C-SSRS Questionnaire. Source: Developed by Drs. Tobin Nunez, Brooke Knapp, Abdulkadir Baltazar and colleagues, with an educational gavino from [employer]. .. Nurse's Note Nurse's Note: Dental pain from a chipped wisdom tooth x10 days HPI Urgent Care HPI COVID-19 Testing ordered at today's visit? (Not Rapid/POC testing in clinic): No Patient notified of today's COVID test results/has an attempt been made to notify patient of results?: No Details: Presents with dental pain from a chipped wisdom tooth x10 days PFSH PFSH Medical History History of depression Surgical History Hx of tonsillectomy Social History Advance Directives: No Advance Directives Information Provided: No Advance Directives on File: No Would like to be referred to Press Operator Apprentice for info?: No History of depression Questionnaire C-SSRS (Primary Care) [employer] Review of Systems [facility] Const Denies body aches, Denies chills, Denies fever(s) and Denies headache(s) ENT Reports dental pain; Denies otalgia, facial pain, headache(s), sinus pain or sore throat Card Denies dyspnea Resp Denies cough or dyspnea GI Denies nausea and Denies vomiting Skin/Breast Denies rash or pruritus Neuro Denies headache(s) Exam (AMB) Const Common normals: Yes no acute distress, Yes oriented to situation, Yes healthy appearing and Yes alert General appearance: cooperative and comfortable Orientation/consciousness: awake HEENT Common normals: normocephalic, atraumatic, external ears normal, EAC's normal, TM's normal bilaterally and Normal external nose present Head and scalp: normocephalic and atraumatic Face and sinus: normal facial exam Nose: Normal external nose present General ear: No hearing grossly impaired External ear: external ears normal External auditory canal: EAC's normal Tympanic membrane: TM's normal bilaterally Mouth: Normal oral and palatal mucosa present Teeth and gingiva: abnormal tooth and associated gingiva Throat: posterior oropharynx normal Lymph Lymphatic: no lymphadenopathy noted Respiratory Common normals: normal respiratory effort and clear to auscultation bilaterally Auscultation: clear to auscultation bilaterally Cardio Common normals: regular rate and regular rhythm Rate: regular rate Rhythm: regular rhythm Heart sounds: no murmurs Neuro Common normals: moves all extremities Sensorium/orientation: alert Speech: speech normal Skin Common normals: Yes no rashes or lesions noted General skin exam: no rashes or lesions noted Quality Reporting (2018) Adult ([facility] 138/12/24/68) Smoking risk assessment performed?: No Assessment Plan (AMB) Assessment Plan (1) Pain, dental: Code(s): K08.89 - Other specified disorders of teeth and supporting structures Medications: New prednisone 40 mg (2 x 20 mg) ORAL DAILY 5 days 10 tabs 0RF K08.89 - Other specified disorders of teeth and supporting structures clindamycin HCl 300 mg ORAL Q8H 7 days 21 caps 0RF K08.89 - Other specified disorders of teeth and supporting structures chlorhexidine gluconate (more content not included)... Normal [facility] CNCOon 07-21-2024 CNCO Letter Text Normal [facility] CNOVon 07-11-2024 CNOV Office Visit (OBGYWM ) CHERELLE COSME ([id number]) 1995 F Date Time Provider Department 07/11/24 1:30 PM CHELSI BOWDEN OBYARELISWStepan During your visit today, we recorded the following information about you: Blood pressure Weight Last Period 122/74 93.9 kg 07/04/24 Chelsi Bowden APRN.CNM 07/11/2024 2:07 PM Signed Cherelle is a 29 year old who presents today for an endometrial biopsy for irregular menses. test: negative UNIVERSAL PROTOCOL / SAFETY CHECKLIST Procedure to be Performed: Endometrial biopsy Sign In: A Moment of CARE was completed. Personnel directly involved with the procedure wore the appropriate PPE (Personal Protective Equipment). No special equipment needed. Patient/Surrogate Stated/Verified: PATIENT VERIFIED(optional for EMERGENT procedures): Patient name, Date of , Relevant allergies, and The intended procedure Time Out Communication: Intended patient and procedure match the source documents. Consent documented and matches the intended procedure. Relevant labs, photos, and/or imaging studies have been reviewed. Correct side/site marked and visible. Medications required for procedure verified. No fire risk assessment and interventions applicable. Implant(s) inserted: Correct implant(s) confirmed including size and side. and Expiration date(s) reviewed. Sign Out: SIGN OUT (optional for EMERGENT procedures): All specimen containers correctly labeled. All instruments, equipment, possible retained foreign bodies accounted for. Post-procedure follow-up management communicated and Plan of Care Visit completed when applicable. PROCEDURE: EXTERNAL GENITALIA: Normal in appearance without lesions VAGINA: Normal in appearance without lesions BIOPSY: Speculum placed into the vagina with excellent visualization of the cervix. Cervix cleaned with betadine. Anterior lip of cervix grasped with single toothed tenaculum. Uterus sounded to 9 cm. Pipelle inserted into the uterus without difficulty and endometrial biopsy obtained. Specimen labeled and sent to pathology. Hemostasis achieved. Procedure Summary: Patient tolerated procedure well. ASSESSMENT: abnormal uterine bleeding PLAN: Specimens labeled and sent to Pathology. Will notify patient of results in 1-2 weeks. Post-procedure instructions reviewed and written material given to the patient. Chelsi Bowden APRN.CNM Cherelle presents today for IUD insertion for dysmenorrhea. Patient's last menstrual period was 07/04/2024 (within days). GC/chlamydia: Negative on 06/03/2024 test: negative Side effects including irregular bleeding were discussed with the patient. The patient understands that it should be removed in 8 years or sooner if the patient desires a . IUD source: office provided IUD lot #: [id number] Exp date: 07/02/2026 UNIVERSAL PROTOCOL / SAFETY CHECKLIST Procedure to be Performed: IUD Insertion The cervix was prepped with betadine. The uterus sounded to 9 cm and the uterus is Midposition.. Using sterile technique, the Mirena IUD was inserted without difficulty and the string was cut to 2 cm from the external os of the cervix. Patient tolerated procedure well. PLAN: Patient was advised to observe for signs and symptoms of infection including but not limited to fever, malodorous vaginal discharge and/or pain. The patient was told to check the string monthly for accurate placement. Bleeding expectations were reviewed. Follow up after next menses for string check. Chelsi Bowden APRN.JENNIFER CabreraChun hadley, WILLIAM 07/11/2024 1:31 PM Addendum YOUR RECOVERY After your biopsy you may have: Vaginal bleeding (less than a normal menstrual period) Mild cramping Do NOT put anything in the vagina for 1 week after your endometrial biopsy. This includes: tampons douches and refraining from having sexual intercourse If you have any discomfort, you may take an over the counter pain medication (motrin, advil, ibuprofen, tylenol, etc). If this does not relieve your discomfort, contact the office. It is okay to wear a sanitary pad until the discharge and spotting stops. RISKS Although problems seldom occur with endometrial biopsies, there can be some complications. You may feel faint during and shortly after the procedure as well as have some bleeding after the procedure. There is also a risk of infection after the procedure. These complications are rare and can be easily treated. You should contact you doctor is you have any of the following: Heavy bleeding (more than your normal period) Bleeding with clots Severe abdominal pain Fever (more than 100.4F) Foul smelling vaginal discharge RESULTS We will have the results of your biopsy in 1-2 weeks. If you do not hear the results of your biopsy after 2 weeks, please contact the office for the results. If you have any additiona (more content not included)... Normal [facility] SURGICAL PATHOLOGYon [address] [facility] Comment on above: Order Comment: Specimen Type: [facility]UE [facility]Order[facility] Facility: [facility] Address: [address] [place] [address] Result Comment: Surg ical Pathology Report Case: [id number] Authorizing Provider: Chelsi Bowden APRN.CNM Collected: 07/11/2024 02:10 PM Ordering Location: OB/Gynecology Received: 07/11/2024 04:30 PM Pathologist: Drea Belle MD Specimen: Endometrium, Biopsy Performed By: #### S ####[facility] [id number] [place] [address] [place] CLINICAL HISTORY Abnormal menses Normal [facility] Comment on above: Order Comment: Spec[facility] Type: [facility] Address: [address] [place] [address] Performed By: #### S ####[facility] [id number] [place] [address] [place] FINAL DIAGNOSIS Normal [facility] Comment on above: Order Comment: Specimen Type: [facility] Address: [address] [place] [address] Result Comment: Endo metrium, biopsy: - Proliferative endometrium with breakdown. Performed By: #### S ####[facility] LABIA [id number] [place] [address] [place] FINAL PERFORMING LAB Normal [facility] Comment on above: Order Comment: Specimen Type: [facility]UE [facility] Address: [address] [place] [address] Result Comment: Diag nostic interpretation performed at [facility] [address] [place] [address] CLIA# [id number] Chief Hydroelectric Station Operator: Isauro Grove M.D. Performed By: #### S ####[facility] LABIA [id number] [place] [address] [place] GROSS DESCRIPTION Normal [facility] Comment on above: Order Comment: Specimen Type: TISSUE SPE CIMENOrdering Facility: [facility] Address: [address] [place] [address] Result Comment: A. E ndometrium, Biopsy Received in formalin are multiple brown, soft feathery segments of tissue aggregating to 2.5 x 2.0 x 0.4 cm. Totally submitted in one cassette. Gross examination performed at [facility], [address] [place] [address] FFS 07/12/2024 12:00 AM Performed By: #### S ####[facility]IA [id number] [place] [address] [place] UA DIP,URINE HCG (POC)on Beta HCG ( test) Ql (U) Negative Negative [facility] Comment on above: Location:[facility], [address] [place], [address] Brick Offbearer (POCT) Internal QC [facility] Location:[facility], [address], [place], [place], [id number] [place] [address] POINT OF CARE [facility] CNOVon 06-17-2024 CNOV Office Visit (OBGYWM ) CHERELLE COSME ([id number]) 1995 F Date Time Provider Department 06/17/24 1:30 PM CHELSI BOWDEN During your visit today, we recorded the following information about you: Blood pressure Weight 112/76 95.7 kg Chelsi Bowden APRN.CNM 06/22/2024 12:56 PM Signed Cherelle Cosme is a 29 year old female who presents for problem visit HPI: Visit from 06/10/24 below. Returns today for results. Visit on 06/10/24 below with complaints. 06/10/24:Having irreegular bleeding. Does not use anything for control but does not think she is . Menses started becoming abnormal around 3-4 months ago. Prior to becoming abnormal, was skipping menses and could go 2-3 months without menses. Menses now are 1.5-2 weeks apart, bleeding 5-7 days. This starts after intercourse. Flow is heavy but light colored blood. Filling a pad every 1hr to 1.5hr. States she is dizzy at times. States she previously had ultrasound that showed multiple cysts and told she had PCOS, no blood work. No hirsutism but history of oligomenorrhea. Pain during and after intercourse. Pain is every position. Will bleed after intercourse and last. No pain at other times. History of taking estrogen to induce menses, not progesterone? 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 Had a pap smear 4 years and states it was abnormal and uncertain of results. Has not received regular FLY MAKER care since daughters . Ages 11 and 4. Current partner x 6 years. Smokes 1/2 PPD. Smoking marijuana daily 1-2 times a day, helps with appetite 240lb in March 2024 now 211lb. Not actively trying to lose weight. No nausea but low appetite, bloating. Has not eaten anything today. OB History T2 L2 SAB0 IAB0 Ectopic0 Multiple0 Live Births2 [employer] History LMP: 06/01/2024 (Exact Date), Having periods Age at Menarche: Age at First : Age at Menopause: [employer] History Comments: Sexual Activity: Yes; Male Contraception: None No past medical history on file. PAST SURGICAL HISTORY No date: TONSILLECTOMY AND ADENOIDECTOMY FAMILY HISTORY Problem Relation Age of Onset Uterine Cancer Mother Breast Cancer Maternal Grandmother Cervical Cancer Maternal Grandmother Ovarian cancer Maternal great-grandmother Breast Cancer Maternal great-grandmother Social History Tobacco Use Smoking status: Every Day Packs/day: 0.50 Years: 20.00 Additional pack years: 0.00 Total pack years: 10.00 Types: Cigarettes Smokeless tobacco: Never Substance Use Topics Alcohol use: Not Currently Drug use: Yes Types: Marijuana Current Outpatient Medications Medication Sig desvenlafaxine ER (PRISTIQ) 50 mg 24 hr tablet Take 50 mg by mouth once daily. gabapentin (NEURONTIN) 100 mg capsule No current facility-administered medications for this visit. Allergies As of Date: 06/17/2024 Allergen Noted Reaction PENICILLINS 10/29/2023 Anaphylaxis AMOXICILLIN 10/29/2023 Hives Fully Assessed 06/17/2024 REVIEW OF SYSTEMS Abdomen: No bloating, early satiety, indigestion, or increased flatulence. No nausea, vomiting, diarrhea, or constipation. Bladder: No dysuria, gross hematuria, urinary frequency, urinary urgency, or incontinence. Breast: No breast lumps, nipple d/c, overlying skin changes, redness or skin retraction. Expanded ROS: N/A Allergies and current medication updated:Yes EXAM: BP 112/76 Wt 211 lb (95.7kg) LMP 06/01/2024 GENERAL: pleasant, female in no apparent distress HEENT: Normocephalic and atraumatic NECK: Supple and full range of motion DERMATOLOGY: Normal and without lesions CHEST: Normal inspiratory effort ABDOMEN: soft, non-tender, and no masses PELVIC: external genitalia normal, normal Bartholin's glands, urethra, [place]'s glands, no vulvar lesions, no cervical lesions, good vaginal support, physiologic discharge present, normal appearing perineal body and perianal region BIMANUAL: uterus normal size, shape and consistency, no adnexal masses, and non-tender NEURO: alert and oriented x3,exam grossly non-focal EXTREMITIES: normal Indication Dyspareunia, Evaluation of abnormal uterine bleeding: menorrhagia Impression Normal appearing anteverted uterus that measures 93 mm x 40 mm x 50 mm. Endometrium measures 9.6 mm Both ovaries are visualized and appear polycystic. No adnexal masses were observed. There is no free fluid visualized in the peritoneal cavity. Recommendations Follow up as clinically indicated. Latest Ref Rng 06/03/2024 WBC 3.70 - 11.00 k/uL 9.66 RBC 3.90 - 5.20 m/uL 4.81 Hemoglobin 11.5 - 15.5 g/dL 13.3 Hematocrit 36.0 - 46.0 % 39.4 MCV 80.0 - 100.0 fL 81.9 MCH 26.0 - 34.0 pg 27.7 MCHC 30.5 - 36.0 g/dL 33.8 RDW-CV 11.5 - 15.0 % 13.4 Platelet Count 150 - 400 k/uL 276 MPV 9.0 - 12.7 fL 10.4 Neut% % 61.3 Abs Neut (ANC) 1.45 - 7.50 k/uL 5.92 Lymph% % (more content not included)... Normal [facility] US Pelvison 06-12-2024 [facility] US Pelvison 06-10-2024 Radiology Study observation (narrative) [facility] CNPNon 06-07-2024 CNPN Telephone (OBGYWM) CHERELLE COSME ([id number]) 1995 F Date Time Provider Department 06/07/24 CHELSI BOWDEN During your visit today, we recorded the following information about you: Kassidy Jeffery RN 06/07/2024 8:44 AM Signed ----- Message from Chelsi Bowden APRN.CNM sent at 06/06/2024 5:02 PM EDT ----- Positive for yeast infection, will send diflucan 150mg PO once. Kassidy Jeffery RN 06/07/2024 8:44 AM Signed Left message for patient to call office. OYRDY Meier Trisha, RN 06/07/2024 12:45 PM Signed Patient notified. Kassidy Jeffery RN Allergies As of Date: 06/07/2024 Noted Allergy Reaction PENICILLINS 10/29/2023 10 - Anaphylaxis AMOXICILLIN 10/29/2023 4 - Hives Date Reviewed: 06/03/2024 Reviewed by: Chun Mello MA - Fully Assessed Reason for Visit: Results [95] Prescriptions as of 06/07/2024 - gabapentin (NEURONTIN) 100 mg capsule Problem List As Of Date: 06/07/2024 (None) Encounter Status:Closed by KASSIDY JEFFERY on 06/07/[address] [facility] B-HCG SerPl-aCncon HCG.beta subunit Qn m[IU]/mL Normal <5.0 [facility] Comment on above: Order Comment: Specimen Type: BLOOD SPEC IMENOrdering Facility: [facility] Address: [address] [place] [address] Result Comment: Fei perales Performed By: #### 2 1198-7 ####[facility] LABCLIA [id number] [place] [address] [place] BACTERIAL VAGINOSIS NAATon 0 06-03-2024 Lactobacillus crispatus+jerardo i+jensenii + Gardnerella vaginalis + Atopobium vaginae rRNA MARYLU+probe Ql (Vag fld) Negative Normal Negative for bacterial vaginosis [facility] Comment on above: Order Comment: Specimen Type: SWABOrderi ng Facility: [facility] Address: [address] [place] [address] Performed By: #### B VAMP, CVTV ####[facility] LABCLIA [id number] [place] [address] [place] C. trachomatis+N. gonorrhoea e DNA MARYLU+probe Ql (Unsp spec)on 06-03-2024 C. trachomatis rRNA MARYLU+probe Ql (Unsp spec) Negative Normal Negative for Chlamydia trachomatis by amplificaton [facility] Comment on above: Order Comment: Specimen Type: SWABOrderi ng Facility: [facility] Address: [address] [place] [address] Performed By: #### 3 6902-5 ####[facility] LABCLIA [id number] [place] [address] [place] N. gonorrhoeae rRNA MARYLU+probe Ql (Unsp spec) Negative Normal Negative for Neisseria gonorrhoeae by amplification [facility] Comment on above: Order Comment: Specimen Type: [facility] Facility: [facility] Address: [address] [place] [address] Performed By: #### 3 6902-5 ####[facility] LABCLIA [id number] [place] [address] [place] JOESPH/TRICHOMONAS NAATon 0 06-03-2024 C. glabrata RNA MARYLU+probe Ql (Vag fld) Negative Normal Negative for Joesph glabrata [facility] Comment on above: Order Comment: Specimen Type: [facility] Facility: [facility] Address: [address] [place] [address] Performed By: #### B VAMP, CVTV ####[facility] LABCLIA [id number] [place] [address] [place] Joesph sp DNA MARYLU+probe Ql (Vag fld) Positive Abnormal Negative for Joesph species [facility] Comment on above: Order Comment: Specimen Type: [facility] Facility: [facility] Address: [address] [place] [address] Performed By: #### B VAMP, CVTV ####[facility] LABCLIA [id number] [place] [address] [place] T. vaginalis DNA MARYLU+probe Ql (Unsp spec) Negative Normal Negative for Trichomonas vaginalis by amplification [facility] Comment on above: Order Comment: [facility] Address: [address] [place] [address] Performed By: #### B VAMP, CVTV ####[facility] LABCLIA [id number] [place] [address] [place] CBC W Auto Differential pane l (Bld)on 06-03-2024 Basophils (Bld) [#/Vol] 0.08 10*3/uL [facility] Basophils/100 WBC (Bld) 0.8 % [facility] Differential cell count method Nom (Bld) Auto [facility] Eosinophils (Bld) [#/Vol] 0.15 10*3/uL [facility] Eosinophils/100 WBC (Bld) 1.6 % [facility] Erythrocyte distribution width (RBC) [Ratio] 13.4 % 11.5 - 15.0 % [facility] Hematocrit (Bld) [Volume fraction] 39.4 % 36.0 - 46.0 % [facility] Hemoglobin (Bld) [Mass/Vol] 13.3 g/dL 11.5 - 15.5 g/dL [facility] Immature granulocytes (Bld) [#/Vol] 0.03 10*3/uL [facility] Immature granulocytes/100 WBC (Bld) 0.3 % [facility] Lymphocytes (Bld) [#/Vol] 2.87 10*3/uL [facility] Lymphocytes/100 WBC (Bld) 29.7 % [facility] MCH (RBC) [Entitic mass] 27.7 pg 26.0 - 34.0 pg [facility] MCHC (RBC) [Mass/Vol] 33.8 g/dL 30.5 - 36.0 g/dL [facility] MCV (RBC) [Entitic vol] 81.9 fL 80.0 - 100.0 fL [facility] Monocytes (Bld) [#/Vol] 0.61 10*3/uL [facility] Monocytes/100 WBC (Bld) 6.3 % [facility] Neutrophils (Bld) [#/Vol] 5.92 10*3/uL [facility] Neutrophils/100 WBC (Bld) 61.3 % [facility] Nucleated RBC (Bld) [#/Vol] [facility] Nucleated RBC/100 WBC (Bld) [Ratio] 0.0 % /100 WBC [facility] Platelet mean volume (Bld) [Entitic vol] 10.4 fL 9.0 - 12.7 fL [facility] Platelets (Bld) [#/Vol] 276 10*3/uL [facility] RBC (Bld) [#/Vol] 4.81 10*6/uL 3.90 - 5.20 m/uL [facility] WBC (Bld) [#/Vol] 9.66 10*3/uL [facility] Basophils (Bld) [#/Vol] 0.08 10*3/uL Normal <0.11 [facility] Comment on above: Order Comment: Specimen Type: BLOOD SPEC IMENOrdering Facility: [facility] Address: [address] [place] [address] Performed By: #### 5 7021-8 ####[facility] MILLWNCLIA [id number] [place] [address] [place] Basophils/100 WBC (Bld) 0.8 % Normal [facility] Comment on above: Order Comment: Specimen Type: BLOOD SPEC IMENOrdering Facility: [facility] Address: [address] [place] [address] Performed By: #### 5 7021-8 ####[facility] [id number] [place] [address] [place] Differential cell count method Nom (Bld) Auto Normal [facility] Comment on above: Order Comment: Specimen Type: BLOOD SPEC IMENOrdering Facility: [facility] Address: [address] [place] [address] Performed By: #### 5 7021-8 ####[facility] [id number] [place] [address] [place] Eosinophils (Bld) [#/Vol] 0.15 10*3/uL Normal <0.46 [facility] Comment on above: Order Comment: Specimen Type: BLOOD SPEC IMENOrdering Facility: [facility] Address: [address] [place] [address] Performed By: #### 5 7021-8 ####[facility] [id number] [place] [address] [place] Eosinophils/100 WBC (Bld) 1.6 % Normal [facility] Comment on above: Order Comment: Specimen Type: BLOOD SPEC IMENOrdering Facility: [facility] Address: [address] [place] [address] Performed By: #### 5 7021-8 ####[facility] JUANITAMELINDA [id number] [place] [address] [place] Erythrocyte distribution width (RBC) [Ratio] 13.4 % Normal 11.5-15.0 [facility] Comment on above: Order Comment: Specimen Type: BLOOD SPEC IMENOrdering Facility: [facility] Address: [address] [place] [address] Performed By: #### 5 7021-8 ####[facility] VENICENCPURVI [id number] [place] [address] [place] Hematocrit (Bld) [Volume fraction] 39.4 % Normal 36.0-46.0 [facility] Comment on above: Order Comment: Specimen Type: BLOOD SPEC IMENOrdering Facility: [facility] Address: [address] [place] [address] Performed By: #### 5 7021-8 ####[facility]ITALMILAGROSA [id number] [place] [address] [place] Hemoglobin (Bld) [Mass/Vol] 13.3 g/dL Normal 11.5-15.5 [facility] Comment on above: Order Comment: Specimen Type: BLOOD SPEC IMENOrdering Facility: [facility] Address: [address] [place] [address] Performed By: #### 5 7021-8 ####[facility] VENICENCLIA [id number] [place] [address] [place] Immature granulocytes (Bld) [#/Vol] 0.03 10*3/uL Normal <0.10 [facility] Comment on above: Order Comment: Specimen Type: BLOOD SPEC IMENOrdering Facility: [facility] Address: [address] [place] [address] Performed By: #### 5 7021-8 ####[facility] JUANITAEmersonNCLIA [id number] [place] [address] [place] Immature granulocytes/100 WBC (Bld) 0.3 % Normal [facility] Comment on above: Order Comment: Specimen Type: BLOOD SPEC IMENOrdering Facility: [facility] Address: [address] [place] [address] Performed By: #### 5 7021-8 ####[facility] PARKWAYGm [id number] [place] [address] [place] Lymphocytes (Bld) [#/Vol] 2.87 10*3/uL Normal 1.00-4.00 [facility] Comment on above: Order Comment: Specimen Type: BLOOD SPEC IMENOrdering Facility: [facility] Address: [address] [place] [address] Performed By: #### 5 7021-8 ####[facility] [id number] [place] [address] [place] Lymphocytes/100 WBC (Bld) 29.7 % Normal [facility] Comment on above: Order Comment: Specimen Type: BLOOD SPEC IMENOrdering Facility: [facility] Address: [address] [place] [address] Performed By: #### 5 7021-8 ####[facility] VENICENCLIA [id number] [place] [address] [place] MCH (RBC) [Entitic mass] 27.7 pg Normal 26.0-34.0 [facility] Comment on above: Order Comment: Specimen Type: BLOOD SPEC IMENOrdering Facility: [facility] Address: [address] [place] [address] Performed By: #### 5 7021-8 ####[facility] VENICENCLIA [id number] [place] [address] [place] MCHC (RBC) [Mass/Vol] 33.8 g/dL Normal 30.5-36.0 [facility] Comment on above: Order Comment: Specimen Type: BLOOD SPEC IMENOrdering Facility: [facility] Address: [address] [place] [address] Performed By: #### 5 7021-8 ####[facility] VENICENCA [id number] [place] [address] [place] MCV (RBC) [Entitic vol] 81.9 fL Normal 80.0-100.0 [facility] Comment on above: Order Comment: Specimen Type: BLOOD SPEC IMENOrdering Facility: [facility] Address: [address] [place] [address] Performed By: #### 5 7021-8 ####[facility] [id number] [place] [address] [place] Monocytes (Bld) [#/Vol] 0.61 10*3/uL Normal <0.87 [facility] Comment on above: Order Comment: Specimen Type: BLOOD SPEC IMENOrdering Facility: [facility] Address: [address] [place] [address] Performed By: #### 5 7021-8 ####[facility] PARKWAYA [id number] [place] [address] [place] Monocytes/100 WBC (Bld) 6.3 % Normal [facility] Comment on above: Order Comment: Specimen Type: BLOOD SPEC IMENOrdering Facility: [facility] Address: [address] [place] [address] Performed By: #### 5 7021-8 ####[facility] PARKWAYA [id number] [place] [address] [place] Neutrophils (Bld) [#/Vol] 5.92 10*3/uL Normal 1.45-7.50 [facility] Comment on above: Order Comment: Specimen Type: BLOOD SPEC IMENOrdering Facility: [facility] Address: [address] [place] [address] Performed By: #### 5 7021-8 ####[facility] BRIANLIA [id number] [place] [address] [place] Neutrophils/100 WBC (Bld) 61.3 % Normal [facility] Comment on above: Order Comment: Specimen Type: BLOOD SPEC IMENOrdering Facility: [facility] Address: [address] [place] [address] Performed By: #### 5 7021-8 ####[facility] JUANITACOATSVILLEANULIA [id number] [place] [address] [place] Nucleated RBC (Bld) [#/Vol] 10*3/uL Normal <0.01 [facility] Comment on above: Order Comment: Specimen Type: BLOOD SPEC IMENOrdering Facility: [facility] Address: [address] [place] [address] Performed By: #### 5 7021-8 ####[facility] VENICEANULIA [id number] [place] [address] [place] Nucleated RBC/100 WBC (Bld) [Ratio] 0.0 /[address] [facility] Comment on above: Order Comment: Specimen Type: BLOOD SPEC IMENOrdering Facility: [facility] Address: [address] [place] [address] Performed By: #### 5 7021-8 ####[facility] VENICEANULIA [id number] [place] [address] [place] Platelet mean volume (Bld) [Entitic vol] 10.4 fL Normal 9.0-12.7 [facility] Comment on above: Order Comment: Specimen Type: BLOOD SPEC IMENOrdering Facility: [facility] Address: [address] [place] [address] Performed By: #### 5 7021-8 ####[facility] PARKWAYA [id number] [place] [address] [place] Platelets (Bld) [#/Vol] 276 10*3/uL Normal 150-400 [facility] Comment on above: Order Comment: Specimen Type: BLOOD SPEC IMENOrdering Facility: [facility] Address: [address] [place] [address] Performed By: #### 5 7021-8 ####[facility] VENICENCA [id number] [place] [address] [place] RBC (Bld) [#/Vol] 4.81 10*6/uL Normal 3.90-5.20 [facility] Comment on above: Order Comment: Specimen Type: BLOOD SPEC IMENOrdering Facility: [facility] Address: [address] [place] [address] Performed By: #### 5 7021-8 ####[facility] [id number] [place] [address] [place] WBC (Bld) [#/Vol] 9.66 10*3/uL Normal 3.70-11.00 [facility] Comment on above: Order Comment: Specimen Type: BLOOD SPEC IMENOrdering Facility: [facility] Address: [address] [place] [address] Performed By: #### 5 7021-8 ####[facility] VENICENCLIA [id number] [place] [address] [place] CNOVon 06-03-2024 CNOV Office Visit (OBGYWM ) CHERELLE COSME ([id number]) 1995 F Date Time Provider Department 06/03/24 2:00 PM CHELSI BOWDEN OBGYWStepan During your visit today, we recorded the following information about you: Blood pressure Weight Last Period 112/70 95.7 kg 06/01/24 Chelsi Bowden APRN.LUM 06/03/2024 3:06 PM Signed Simeon Cosme is a 29 year old female who presents for problem visit. HPI: Having irreegular bleeding. Does not use anything for control but does not think she is . Menses started becoming abnormal around 3-4 months ago. Prior to becoming abnormal, was skipping menses and could go 2-3 months without menses. Menses now are 1.5-2 weeks apart, bleeding 5-7 days. Flow is heavy but light colored blood. Filling a pad every 1hr to 1.5hr. States she is dizzy at times. States she previously had ultrasound that showed multiple cysts and told she had PCOS, no blood work. No hirsutism but history of oligomenorrhea. Pain during and after intercourse. Will bleed after intercourse and last. No pain at other times. 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 Had a pap smear 4 years and states it was abnormal and uncertain of results. Has not received regular FLY MAKER care since daughters . Ages 11 and 4. Current partner x 6 years. Smokes 1/2 PPD. Smoking marijuana daily 1-2 times a day, helps with appetite 240lb in March 2024 now 211lb. Not actively trying to lose weight. No nausea but low appetite, bloating. Has not eaten anything today. OB History T2 L2 SAB0 IAB0 Ectopic0 Multiple0 Live Births2 [employer] History LMP: 06/01/2024 (Exact Date), Having periods Age at Menarche: Age at First : Age at Menopause: [employer] History Comments: Sexual Activity: Yes; Male Contraception: None No past medical history on file. PAST SURGICAL HISTORY No date: TONSILLECTOMY AND ADENOIDECTOMY FAMILY HISTORY Problem Relation Age of Onset Uterine Cancer Mother Breast Cancer Maternal Grandmother Cervical Cancer Maternal Grandmother Ovarian cancer Maternal great-grandmother Breast Cancer Maternal great-grandmother Social History Tobacco Use Smoking status: Every Day Packs/day: 0.50 Years: 20.00 Additional pack years: 0.00 Total pack years: 10.00 Types: Cigarettes Smokeless tobacco: Never Substance Use Topics Alcohol use: Not Currently Drug use: Yes Types: Marijuana Current Outpatient Medications Medication Sig gabapentin (NEURONTIN) 100 mg capsule No current facility-administered medications for this visit. Allergies As of Date: 06/03/2024 Allergen Noted Reaction PENICILLINS 10/29/2023 Anaphylaxis AMOXICILLIN 10/29/2023 Hives Fully Assessed 06/03/2024 REVIEW OF SYSTEMS Abdomen: No bloating, early satiety, indigestion, or increased flatulence. No abdominal pain, nausea, vomiting, diarrhea, or constipation. Bladder: No dysuria, gross hematuria, urinary frequency, urinary urgency, or incontinence. Breast: No breast lumps, nipple d/c, overlying skin changes, redness or skin retraction. Expanded ROS: N/A Allergies and current medication updated:Yes EXAM: BP 112/70 Wt 211 lb (95.7kg) LMP 06/01/2024 GENERAL: pleasant, female in no apparent distress HEENT: Normocephalic, atraumatic, mucus membranes moist, and no lesions NECK: Supple and full range of motion DERMATOLOGY: Normal and without lesions CHEST: Normal inspiratory effort ABDOMEN: soft, non-tender, and no masses PELVIC: external genitalia normal, normal Bartholin's glands, urethra, [place]'s glands, no vulvar lesions, no cervical lesions, good vaginal support, physiologic discharge present, normal appearing perineal body and perianal region. Moderate amount of blood in vaginal vault. CMT. BIMANUAL: uterus normal size, shape and consistency, no adnexal masses, and non-tender NEURO: alert and oriented x3,exam grossly non-focal EXTREMITIES: normal ASSESSMENT AND PLAN: 1. Screening for cervical cancer - ICD9: V76.2, ICD10: Z12.4 (primary diagnosis) - Completed pelvic and breast exam - Encouraged monthly BSE - Follow up for annual exam in one year. - PAP TEST 2. Screening for human papillomavirus (HPV) - ICD9: V73.81, ICD10: Z11.51 - PAP TEST 3.Abnormal uterine bleeding (AUB) - ICD9: 626.9, ICD10: N93.9 -Reviewed testing labs for PCOS. Will follow up in 2 weeks after results and US completed. - THYROID STIMULATING HORMONE - PROLACTIN - TESTOSTERONE, FREE AND TOTAL - DHEA-S BLD - HYDROXYPROGESTERONE-17 - ESTRADIOL-17B BLD - PELVIC US WHI - HEMOGLOBIN A1C - GLUCOSE, FASTING - COMPLETE BLOOD COUNT AND DIFFERENTIAL - IRON AND TIBC - FERRITIN 4. Pelvic pain in female - ICD9: 625.9, ICD10: R10.2 - BACTERIAL VAGINOSIS NAAT - JOESPH/TRICHOMONAS NAAT - GONORRHEA/CHLAMYDIA NAAT 5. CMT (cervical motion tenderness) - ICD9: 625.8, ICD10: N94.9 -Will await result (more content not included)... Normal [facility] DHEA-S BLDon 06-03-2024 DHEA-S [Mass/Vol] 98.9 ug/dL Normal 98.8-340.0 [facility] Comment on above: Order Comment: Specimen Type: BLOOD SPEC IMENOrdering Facility: [facility] Address: [address] [place] [address] Result Comment: Refe rence ranges are age and gender specific. For additional information, reference range tables can be found in the laboratory test directory. The normal values are based on the following source: Dehydroepiandrosterone sulfate (DHEA S) [package insert V 17.0 Salvadorean]. [facility], [place], [place]: June 2013. Performed By: #### 5 0190-8, DHEAS, 2243-4, 2842-3 ####[facility] LABCLIA [id number] [place] [address] [place] Estradiol SerPl-mCncon 06-03 E2 [Mass/Vol] 63 pg/mL Normal [facility] Comment on above: Order Comment: Specimen Type: BLOOD SPEC IMENOrdering Facility: [facility] Address: [address] [place] [address] Result Comment: This test is not suitable for patients receiving treatment with the drug Fulvestrant (Faslodex). The drug causes an interference leading to falsely elevated estradiol results. Menstrual cycle Estradiol reference ranges: Follicular : < 234 pg/mL Ovulation : 41 to 398 pg/mL Luteal : < 342 pg/mL Estradiol reference ranges vary by gestational period: First trimester : 154 to 3243 pg/mL Second trimester : 1561 to 44820 pg/mL Third trimester : 8285 to >14936 pg/mL Post-menopausal Estradiol reference range: < 41 pg/mL Reference: 1. Estradiol - E2 (Estradiol III) [package insert V 3.0 Salvadorean]. [facility], [place], [place], April 2016. Performed By: #### 5 0190-8, DHEAS, 2243-4, 2842-3 ####[facility]CLIA [id number] [place] [address] [place] Ferritin [facility] 2023 Ferritin [Mass/Vol] 42.1 ng/mL Normal 14.7-205.1 [facility] Comment on above: Order Comment: Specimen Type: BLOOD SPEC IMENOrdering Facility: [facility] Address: [address] [place] [address] Performed By: #### 3 016-3, 2276-4 ####[facility] LABIA [id number] [place] [address] [place] Glucose p fast [facility] 06-03-2024 Glucose post fast [Mass/Vol] 96 mg/dL Normal 74-99 [facility] Comment on above: Order Comment: Specimen Type: BLOOD SPEC IMENOrdering Facility: [facility] Address: [address] [place] [address] Result Comment: Amer ican Diabetes Association guidelines state that a diabetes mellitus diagnosis is preliminarily made when the fasting plasma glucose meets or exceeds 126 mg/dL. In the absence of unequivocal hyperglycemia, results should be confirmed with repeat testing. Patients are at increased risk for diabetes mellitus (prediabetes) when the fasting glucose is 100 to 125 mg/dL. Performed By: #### 1 558-6 ####[facility]CLIA [id number] [place] [address] [place] HIGH RISK HUMAN PAPILLOMA FAVIO (HPV), PCR FOR DETECTION AND GENOTYPINGon 06-03-2024 HPV 16 Ag Ql (Unsp spec) Not detected Normal Not detected [facility] Comment on above: Order Comment: Specimen Type: FLUID SPEC IMENOrdering Facility: [facility] Address: [address] [place] [address] Performed By: #### L [id number], HPVHRT ####[facility]CLIA [id number] [place] [address] [place] HPV 18 Ag Ql (Unsp spec) Not detected Normal Not detected [facility] Comment on above: Order Comment: Specimen Type: FLUID SPEC IMENOrdering Facility: [facility] Address: [address] [place] [address] Performed By: #### L [id number], HPVHRT ####[facility]CLIA [id number] [place] [address] [place] HPV 31+33+35+39+45+5 1+52+56+58+59+66 +68 DNA MARYLU+probe Ql (Cvx) Not detected Normal Not detected [facility] Comment on above: Order Comment: Specimen Type: FLUID SPEC IMENOrdering Facility: [facility] Address: [address] [place] [address] Result Comment: High Risk HPV Other Type includes HPV types 31, 33, 35, 39, 45, 51, 52, 56, 58, 59, 66 and 68. Performed By: #### L [id number], HPVHRT ####[facility] LABIA [id number] [place] [address] [place] HYDROXYPROGESTERONE-17on 17-HYDROXYPROGES TERONE QUANTITATIVE BY HPLC-MS/MS, SERUM OR PLASMA 62.65 ng/dL Normal <=206.00 [facility] Comment on above: Order Comment: Specimen Type: BLOOD SPEC IMENOrdering Facility: [facility] Address: [address] [place] [address] Result Comment: INTERPRETIVE INFORMATION for 17-Hydroxyprogesterone in females: Follicular 15 to 70 ng/dL Luteal 35 to 290 ng/dL REFERENCE INTERVAL: 17-Hydroxyprogesterone Qnt, HPLC-MS/MS Access complete set of age- and/or gender-specific reference intervals for this test in the [facility] Test Directory ([employer]). This test was developed and its performance characteristics determined by [facility]. It has not been cleared or approved by the US Food and Drug Administration. This test was performed in a CLIA certified laboratory and is intended for clinical purposes. Performed By: [facility] [address] [place] [address] Chief Hydroelectric Station Operator: Carli Kohli MD, PhD CLIA Number: [id number] Performed By: #### H PROG ####[facility] [id number] [place] [address] HbA1c (Bld)on 06-03-2024 Average glucose Estimated from glycated hemoglobin (Bld) [Mass/Vol] 103 mg/dL Normal [facility] Comment on above: Order Comment: Specimen Type: BLOOD SPEC IMENOrdering Facility: [facility] Address: [address] [place] [address] Result Comment: eAG: (Estimated average glucose) is a calculated value from HgbA1c and is medical service representative of the average blood glucose level in the last 2-3 month period. Performed By: #### 5 5454-3 ####[facility]CLIA [id number] [place] [address] [place] HbA1c (Bld) [Mass fraction] 5.2 % Normal 4.3-5.6 [facility] Comment on above: Order Comment: Specimen Type: BLOOD SPEC IMENOrdering Facility: [facility] Address: [address] [place] [address] Result Comment: Amer ican Diabetes Association guidelines indicate that patients with HgbA1c in the range 5.7-6.4% are at increased risk for development of diabetes, and intervention by lifestyle modification may be beneficial. HgbA1c greater or equal to 6.5% is considered diagnostic of diabetes. Performed By: #### 5 5454-3 ####[facility] LABCLIA [id number] [place] [id number] [place] Iron and Iron binding capaci ty panelon 06-03-2024 Iron [Mass/Vol] 37 ug/dL Low 41-186 [facility] Comment on above: Order Comment: Specimen Type: BLOOD SPEC IMENOrdering Facility: [facility] Address: [address] [place] [address] Performed By: #### 5 0190-8, DHEAS, 2243-4, 2842-3 ####[facility]CLIA [id number] [place] [address] [place] Iron binding capacity [Mass/Vol] 313 ug/dL Normal 232-386 [facility] Comment on above: Order Comment: Specimen Type: BLOOD SPEC IMENOrdering Facility: [facility] Address: [address] [place] [address] Performed By: #### 5 0190-8, DHEAS, 2243-4, 2842-3 ####[facility]CLIA [id number] [place] [address] [place] Iron/TIBC [Molar ratio] 11.8 % Low 15.0-57.0 [facility] Comment on above: Order Comment: Specimen Type: BLOOD SPEC IMENOrdering Facility: [facility] Address: [address] [place] [address] Performed By: #### 5 0190-8, DHEAS, 2243-4, 2842-3 ####[facility]CLIA [id number] [place] [address] [place] PAP TESTon 06-03-[address] [facility] Comment on above: Order Comment: Specimen Type: FLUID SPEC IMENOrdering Facility: [facility] Address: [address] [place] [address] Result Comment: Sati sfactory for interpretation. Limited cellularity. Performed By: #### L [id number], HPVHRT ####[facility]CLIA [id number] [address] [address] [place] CASE REPORT Normal [facility] Comment on above: Order Comment: Specimen Type: FLUID SPEC IMENOrdering Facility: [facility] Address: [address] [place] [address] Result Comment: Gyne cologic Cytology Report Case: [id number] Authorizing Provider: Chelsi Bowden APRN.CNM Collected: 06/03/2024 02:51 PM Ordering Location: OB/Gynecology Received: 06/03/2024 04:47 PM First Screen: Trey, Lissette, CT, ASCP Specimen: Pap Test, ThinPrep, Cervix Performed By: #### L [id number], HPVHRT ####[facility]CLIA [id number] [place] [address] [place] CLINICAL HISTORY, CYTOLOGY, FLY MAKER Routine Exam Normal [facility] Comment on above: Order Comment: Specimen Type: FLUID SPEC IMENOrdering Facility: [facility] Address: [address] [place] [address] Performed By: #### L [id number], HPVHRT ####[facility]CLIA [id number] [place] [address] [place] FINAL PERFORMING LAB Normal [facility] Comment on above: Order Comment: Specimen Type: FLUID SPEC IMENOrdering Facility: [facility] Address: [address] [place] [address] Result Comment: Tech nical component, plasma specialist screening performed at [facility], [address] [place] [address] CLIA# [id number] Diagnostic interpretation performed at [facility], [address] [place] [address] CLIA# [id number] Chief Hydroelectric Station Operator: Isauro Grove M.D. Performed By: #### L [id number], HPVHRT ####[facility]CLIA [id number] [place] [address] [place] HPV REFLEX Yes HPV Normal [facility] Comment on above: Order Comment: Specimen Type: FLUID SPEC IMENOrdering Facility: [facility] Address: [address] [place] [address] Performed By: #### L [id number], HPVHRT ####[facility]CLIA [id number] [place] [address] [place] INTERPRETATION, CYTOLOGY, FLY MAKER Normal [facility] Comment on above: Order Comment: Specimen Type: FLUID SPEC IMENOrdering Facility: [facility] Address: [address] [place] [address] Result Comment: Nega tive for intraepithelial lesion or malignancy. Performed By: #### L [id number], HPVHRT ####[facility]CLIA [id number] [place] [address] [place] LMP 06/01/[address] [facility] Comment on above: Order Comment: Specimen Type: FLUID SPEC IMENOrdering Facility: [facility] Address: [address] [place] [address] Performed By: #### L [id number], HPVHRT ####[facility]CLIA [id number] [place] [address] [place] PAP DISCLAIMER COMMENT The Pap Smear is a screening test for cervical cancer. False negative results occur with all screening tests, emphasizing the need for rescreening at recommended intervals, and clinical correlation. Normal [facility] Comment on above: Order Comment: Specimen Type: FLUID SPEC IMENOrdering Facility: [facility] Address: [address] [place] [address] Performed By: #### L [id number], HPVHRT ####[facility]CLIA [id number] [place] [address] [place] PAP GUIDE DOG INSTRUCTOR COMMENT This specimen has been analyzed by the ThinPrep Imaging System, an automated imaging and review system, which assists the laboratory in evaluating cells on ThinPrep Pap tests. Following automated imaging, selected martino from every slide are reviewed by a plasma specialist. Normal [facility] Comment on above: Order Comment: Specimen Type: FLUID SPEC IMENOrdering Facility: [facility] Address: [address] [place] [address] Performed By: #### L DC2000, HPVHRT ####[facility] LABCLIA [id number] [place] [address] [place] Prolactin SerPl-mCncon 06-03 Prolactin [Mass/Vol] 11.8 ng/mL Normal 4.5-26.8 [facility] Comment on above: Order Comment: Specimen Type: BLOOD SPEC IMENOrdering Facility: [facility] Address: [address] [place] [address] Result Comment: Prol actin test is performed using the [facility] Electrochemiluminescence Immunoassay method. Results obtained with different methods or kits cannot be used interchangeably. Performed By: #### 5 0190-8, DHEAS, 2243-4, 2842-3 ####[facility] LABCLIA [id number] [place] [address] [place] TESTOSTERONE, FREE AND TOTAL on 06-03-2024 TESTOSTERONE, FREE, S 0.93 ng/dL Normal <0.13-1.03 [facility] Comment on above: Order Comment: Specimen Type: BLOOD SPEC IMENOrdering Facility: [facility] Address: [address] [place] [address] Result Comment: ADDITIONAL INFORMATION This test was developed and its performance characteristics determined by [facility] in a manner consistent with CLIA requirements. This test has not been cleared or approved by the U.S. Food and Drug Administration. Performed By: #### T FTEST ####[facility] LABCLIA [id number] [place] [address] TESTOSTERONE, TOTAL, S 48 ng/dL Normal 8-60 [facility] Comment on above: Order Comment: Specimen Type: BLOOD SPEC IMENOrdering Facility: [facility] Address: [address] [place] [address] Result Comment: ADDITIONAL INFORMATION Testing performed by Liquid Chromatography-Tandem Mass Spectrometry (LC-MS/MS). This test was developed and its performance characteristics determined by [facility] in a manner consistent with CLIA requirements. This test has not been cleared or approved by the U.S. Food and Drug Administration. Test Performed by: [facility] [address] [place] [address] Benefit Specialist: Mohamud Soliman Ph.D.; CLIA# [id number] Performed By: #### T FTEST ####[facility] LABCLIA [id number] [place] [address] TSH SerPl-aCncon 06-03-2024 TSH Qn 3.380 m[IU]/L Normal 0.270-4.200 [facility] Comment on above: Order Comment: Specimen Type: BLOOD SPEC IMENOrdering Facility: [facility] Address: [address] [place] [address] Result Comment: If t he patient is , TSH reference range varies by gestational period: First Trimester (weeks 9-12): 0.180-2.990 mIU/L Second Trimester: 0.110-3.980 mIU/L Third Trimester: 0.480-4.710 mIU/L Vivek Shay et al. A Practical Approach for the Verifications and Determination of Site- and Trimester-Specific Reference Intervals for Thyroid Function tests in . Thyroid, 2019:29:3:412-420. Isai Edwards, et al. 2017 Guidelines of the [place] Thyroid Association for the Diagnosis and Management of Thyroid Disease during and the . Thyroid, 2017:27:3:315-389. Performed By: #### 3 016-3, 2276-4 ####[facility]CLIA [id number] [facility] [id number] [place], [place] [id number] [place] CNPSarah 10-30-2023 CNPN Telephone (UCWSTR) SIMEON COSME ([id number]) 1995 F Date Time Provider Department 10/30/23 RASHMI BARRERA During your visit today, we recorded the following information about you: Rashmi Barrera APRN.CNP 10/30/2023 9:06 AM Signed Patient is positive for COVID. Patient should quarantine for 5 days then mask for another 5 days. Supportive therapy is recommended. Mal Hampton LPN 10/30/2023 9:14 AM Signed Patient telephoned and notified. Mal Hampton LPN Allergies As of Date: 10/30/2023 Noted Allergy Reaction PENICILLINS 10/29/2023 10 - Anaphylaxis AMOXICILLIN 10/29/2023 4 - Hives Date Reviewed: 10/29/2023 Reviewed by: Carli Sanchez APRN.CNP - Fully Assessed Reason for Visit: Results [95] Prescriptions as of 10/30/2023 - gabapentin (NEURONTIN) 100 mg capsule Problem List As Of Date: 10/30/2023 (None) Encounter Status:Closed by MAL HAMPTON on 10/30/23 [facility] CNOVon 10-29-2023 CNOV Office Visit (UCWSTR ) SIMEON COSME ([id number]) 1995 F Date Time Provider Department 10/29/23 6:15 PM CARLI SANCHEZ During your visit today, we recorded the following information about you: Temperature Pulse Respiration Blood pressure 102.2 degrees 105/minute 22/minute 100/59 Weight Last Period 98.9 kg 10/28/23 Carli Sanchez APRN.CNP 10/29/2023 6:58 PM Signed Subjective HPI HPI Simeon Cosme is a 28 year old female who presents today for CC of fever, body aches, ear pain. This started today. Has tried otc medication for relief. Symptoms are worsened by nothing. Risk factors sick exposures recently/covid. Denies possibility of being . smoker. Tolerating fluids/solids, last void 4 hours ago. .Patient presents with: Flu Like Symptoms: Fever, body aches, headache since this am No past medical history on file. No past surgical history on file. ALLERGIES Penicillins and Amoxicillin MEDICATIONS gabapentin (NEURONTIN) 100 mg capsule No family history on file. Social History Tobacco Use Smoking status: Every Day Packs/day: 0.50 Years: 20.00 Additional pack years: 0.00 Total pack years: 10.00 Types: Cigarettes Smokeless tobacco: Never Review of Systems Constitutional: Positive for chills, fever and malaise/fatigue. HENT: Positive for congestion and ear pain. Negative for nosebleeds and sore throat. Respiratory: Negative for cough, shortness of breath and wheezing. Cardiovascular: Negative for chest pain. Gastrointestinal: Negative for diarrhea and vomiting. Musculoskeletal: Negative for neck pain. Objective Blood pressure 100/59, pulse 105, temperature (!) 39 ?C (102.2 ?F), resp. rate 22, weight 98.9 kg (218 lb), last menstrual period 10/28/2023, SpO2 95%. Physical Exam Constitutional: General: She is not in acute distress. Appearance: She is ill-appearing. She is not toxic-appearing or diaphoretic. HENT: Head: Normocephalic and atraumatic. Right Ear: Hearing, tympanic membrane, ear canal and external ear normal. Left Ear: Hearing, tympanic membrane, ear canal and external ear normal. Nose: Nose normal. Mouth/Throat: Pharynx: Uvula midline. No pharyngeal swelling, oropharyngeal exudate, posterior oropharyngeal erythema or uvula swelling. Eyes: General: Lids are normal. No scleral icterus. Right eye: No discharge. Left eye: No discharge. Conjunctiva/sclera: Conjunctivae normal. Pupils: Pupils are equal, round, and reactive to light. Neck: Trachea: Trachea normal. Cardiovascular: Rate and Rhythm: Normal rate and regular rhythm. Heart sounds: Normal heart sounds. Pulmonary: Effort: Pulmonary effort is normal. Breath sounds: Normal breath sounds. Musculoskeletal: Cervical back: Normal range of motion and neck supple. Lymphadenopathy: Cervical: No cervical adenopathy. Right cervical: No superficial cervical adenopathy. Left cervical: No superficial cervical adenopathy. Skin: Findings: No rash. Neurological: Mental Status: She is alert and oriented to person, place, and time. ASSESSMENT/PLAN: 1. URI, acute - ICD9: 465.9, ICD10: J06.9 - Discussed viral etiology and rationale for treatment. - Symptomatic treatment with prn analgesia - Supportive care with fluids and rest - Follow up in 3-5 days if symptoms persist or sooner if worsening of symptoms If positive for covid and wants treatment will have to return for bloodwork tomorrow. Bmp ordered. Smoker, obese risk factors - INFLUENZA AANDB MOLECULAR (POC) - COVID NAAT, UPPER RESPIRATORY, ROUTINE Carli Sanchez APRN.LOCKSTITCH ZIPPER SETTER Allergies As of Date: 10/29/2023 Noted Allergy Reaction PENICILLINS 10/29/2023 10 - Anaphylaxis AMOXICILLIN 10/29/2023 4 - Hives Date Reviewed: 10/29/2023 Reviewed by: Carli Sanchez APRN.LOCKSTITCH ZIPPER SETTER - Fully Assessed Reason for Visit: Flu Like Symptoms [267] Cmt: Fever, body aches, headache since this am Primary Visit Diagnosis:URI, acute [J06.9] Other Visit Diagnosis:Smoker [F17.200] Order(s):INFLUENZA AANDB MOLECULAR (POC) [3658661] Order #: [id number]. #:[id number] -LAB COVID NAAT, UPPER RESPIRATORY, ROUTINE [SQCOVID] Order #: [id number]. #:[id number] BASIC METABOLIC PNL [SQBMP] Order #: [id number] FUTURE Prescriptions as of 10/29/2023 - gabapentin (NEURONTIN) 100 mg capsule Problem List As Of Date: 10/29/2023 (None) Encounter Status:Closed by CARLI SANCHEZ on 10/29/[address] [facility] SARS-CoV-2 RNA Resp Ql MARYLU+p robeon 10-29-2023 SARS-CoV-2 (COVID-19) RNA MARYLU+probe Ql (Resp) COVID 19 RESULT: Detected The method used is RT-PCR or an equivalent NAAT method. Reference Range (the expected result in uninfected individuals): Not detected Normal [facility] Comment on above: Performed By: #### 50088-0 ####[facility] [id number] [address] [facility] Elbow min 3 Viewson 10-03-20 Elbow min 3 Views [facility] Imaging Services [address] [place] [address] Elbow min 3 Views MR#: [id number] Acct: [id number] Name: CHERELLE COSME Rep #: [id number] : 1995 F 28 From: Nitin Edward PCP: Care Physician,No Primary Status: REG ER Study: Elbow min 3 Views Date of Exam: 10/03/23 Exam# [id number] Ordering Dr: Adeel Carlton [id number] INDICATION: fall EXAMINATION/TECHNIQUE: X-RAY - LEFT XR Elbow Min 3 Views COMPARISON: No relevant prior comparison study available FINDINGS: SOFT TISSUES: No soft tissue swelling or gas. No radiopaque foreign body. BONES/JOINTS: There is no displacement of the anterior or posterior fat pads. No acute fracture or subluxation. Normal alignment. Preservation of the joint space. No sclerotic or destructive changes observed. RAD/Elbow min 3 Views IMPRESSION: No evidence of acute fracture. Electronically Signed: Nitin Flannery MD at 15:34 EST , CC: JODEE Carlton; No Primary Care Physician Clinical Research Management Associate: Signed Normal [facility] Emergency Department Summary on 10-03-2023 Emergency Department Summary [facility] Medical Records Department [address] [place] [address] Emergency Department Summary 10/03/23 MR#: [id number] Acct: [id number] Name: CHERELLE COSME Rep #: [id number] : 1995 28 From: Titi Zaragoza DO PCP: Care Physician,No Primary Status:DEP ER Location: ED HPI History of Present Illness Chief Complaint: Upper Extremity Injury Narrative Narrative: Patient is a 28-year-old female with no significant ankle history presents to the emergency department after mechanical fall. Patient states he fell down 3 steps jamming her left elbow. Patient also states she landed on her left ribs. Patient denies any other injury, denies any head or neck injury. She denies any LOC. She is on any blood thinners [facility] Medical History (Updated 10/03/23 @ 15:59 by JODEE Barnes) Anxiety Depression Home Medications gabapentin 300 mg capsule 300 mg PO BID 10/03/23 [History Last Taken Unknown] ibuprofen 600 mg tablet 600 mg PO Q6H PRN PRN pain #20 TABLETS 10/03/23 [Rx Last Taken Unknown] Allergy/AdvReac Type Severity Reaction Status Date / Time amoxicillin Allergy Anaphylaxis Verified 10/03/23 14:02 Penicillins Allergy Anaphylaxis Verified 10/03/23 14:02 Surgical History History of tonsillectomy Social History Smoking Status: Current every day smoker tobacco type: cigarettes ROS ROS ED ROS Narrative Constitutional: Negative for fever, chills, weight loss, weakness Eyes: Negative for vision loss, vision change, double vision ENT: Negative for any sore throat, ear pain, congestion Cardiovascular: Negative for any chest pain, tightness, palpitations Respiratory: Negative for any cough, sputum production, hemoptysis, dyspnea, dyspnea on exertion, orthopnea Gastrointestinal: Negative for any abdominal pain, nausea, vomiting, diarrhea, constipation, blood in stool, blood in vomit : Negative for any urinary frequency, dysuria, retention, blood in urine Muscle skeletal: Negative for any myalgias, arthralgias, neck pain, back pain. Left elbow pain, left rib pain Neurological: Negative for any headache, syncope, numbness or tingling, dizziness Skin: Negative for any rashes, lumps, itching, abrasions, lacerations Psychiatric: Negative for any depression, anxiety, stress, suicidal ideation, homicidal ideation Hematologic: Negative for any easy bruising, excessive bruising, easy bleeding Allergies: Negative for any eczema, hives, rash EXAM Physical Exam Narrative Exam Narrative: Vital signs reviewed. HEET: Head normocephalic atraumatic, TMs clear bilaterally. Posterior pharynx is clear, moist mucous membranes. Nares clear bilaterally. Neck: Supple with no lymphadenopathy or tenderness. No signs of meningismus. Cardiac: Regular rate and rhythm no murmurs gallops or rubs, equal peripheral pulses bilaterally. Respiratory: Lungs clear to auscultation bilaterally. Positive left-sided chest tenderness, negative for any crepitus, ecchymosis. Clear breath sounds in all quadrants Abdomen: Soft, nontender, nondistended. No abdominal bruit or pulsatile masses. No hepatosplenomegaly Extremities: Patient no ecchymosis, edema. Patient does have pain to the proximal radial head. Patient has pain with movement of the elbow. Neuro: Cranial nerves II through XII intact, no focal neurological deficits. Skin: Clean dry and intact with no rash, purpura, petechiae, vesicles or pustules. Backs/flank: No CVA tenderness, no midline spinal tenderness, no deformity. Psych: Normal mood and affect. No SI, HI or acute psychosis. Const Vital Signs: 10/03/23 14:02 Temperature 97.6 F L Temperature Source Temporal Pulse Rate 80 Respiratory Rate 18 Blood Pressure 120/67 Blood Pressure Mean 84 Pulse Ox 97 Oxygen Delivery Method Room Air [facility] Treatment and Re-Evaluation Narrative: Patient appears generally well, patient appears nontoxic, vital signs are stable. Presenting to the emergency department with left elbow pain, left rib pain. Patient did receive 3 views of left elbow interpreted by ER physician showed no evidence of acute fracture. X-rays of the left ribs the chest shows no evidence of displaced rib fracture. At this time, patient will be given a prescription for ibuprofen, she will be given a sling for her left arm. She is instructed take it out multiple times a day and perform general range of motion activities. All questions were answered, she instructed return for any worsening symptoms. MDM MDM Narrative Medical decision making narrative: Patient appears generally well, patient appears nontoxic, vital signs are stable. Presenting to the emergency department with left elbow pain, left rib pain. Pat (more content not included)... Normal [facility] Ribs Uni Min 3V w/PA Cheston 10-03-2023 Ribs Uni Min 3V w/PA Chest [facility] [address] [place] [address] Ribs Uni Min 3V w/PA Chest MR#: [id number] Acct: [id number] Name: CHERELLE COSME Rep #: [id number] : 1995 F 28 From: Nitin Edward PCP: Care Physician,No Primary Status: REG ER Study: Ribs Uni Min 3V w/PA Chest Date of Exam: 10/03 Exam# [id number] Ordering Dr: Adeel Carlton [id number] INDICATION: fall EXAMINATION/TECHNIQUE: X-RAY - XR Ribs Unilateral W/ PA Chest Min 3 Views COMPARISON: No relevant prior comparison study available FINDINGS: SOFT TISSUES: No soft tissue swelling or gas. BONES: No displaced fracture. No sclerotic or destructive changes observed. VISUALIZED LUNGS: Clear. No pneumothorax. RAD/Ribs Uni Min 3V w/PA Chest IMPRESSION: No evidence of displaced rib fracture. Electronically Signed: Nitin Flannery MD at 15:36 EST , CC: JODEE Carlton; No Primary Care Physician Clinical Research Management Associate: Signed Normal [facility] Emergency Department Summary on 04-21-2023 Emergency Department Summary [facility] Medical Records Department [address] [place] [address] Emergency Department Summary 04/21/23 MR#: [id number] Acct: [id number] Name: CHERELLE COSME Rep #: [id number] : 1995 28 From: Vic Toribio PCP: Care Physician,No Primary Status:DEP ER Location: ED HPI History of Present Illness Chief Complaint: Foreign Body Informant: patient Narrative Narrative: Woke up today feeling pain in her ear felt something moving. She tried flushing with warm water however states that went deeper. Pain with movement. No history of similar. Prior similar symptoms: No PFSH PFSH Home Medications clindamycin HCl 300 mg capsule (Cleocin HCl) 300 mg PO Q6H #40 CAPSULES 04/10/23 [Rx Last Taken Unknown] naproxen 500 mg tablet 500 mg PO BID PRN #20 tabs 04/10/23 [Rx Last Taken Unknown] Allergy/AdvReac Type Severity Reaction Status Date / Time amoxicillin Allergy Anaphylaxis Verified 04/21/23 04:12 Penicillins Allergy Anaphylaxis Verified 04/21/23 04:12 Surgical History History of tonsillectomy Social History Smoking Status: Current every day smoker tobacco type: cigarettes ROS ROS ED Constitutional Constitutional ED: Denies chills, fever(s) or sweats Eyes Eyes: Denies change in vision ENT ENT ED: Reports ear pain; Denies dysphagia or sore throat Cardiovascular Cardiovascular: Denies chest pain, leg edema, palpitations or racing heartbeat Respiratory/Chest Respiratory/Chest: Denies cough, dyspnea or dyspnea on exertion Gastrointestinal Gastrointestinal: Denies abdominal pain, diarrhea, nausea or vomiting Genitourinary Genitourinary ED: Denies dysuria, hematuria or urinary frequency Musculoskeletal Musculoskeletal: Denies back pain, extremity pain or neck pain Integumentary Denies rash or wounds Neurologic Neurologic: Denies headache(s), paresthesias or weakness EXAM Physical Exam Const Vital Signs: 04/21/23 04:10 Temperature 97.8 F Temperature Source Temporal Pulse Rate 81 Respiratory Rate 16 Blood Pressure 164/84 H Blood Pressure Mean 110 Pulse Ox 99 Positive well nourished and well developed General Appearance ED: well developed and NAD HEENT Reports moist mucous membranes HEENT Narrative: Left ear: Normal. Right ear: After viscous lidocaine placed and observed, evaluation noted insect, removed with suction. TM intact post suctioning and removal. normocephalic and atraumatic Eyes PERRL, EOMs intact bilaterally and conjunctivae normal General Eye ED: Yes normal appearance of both eyes Neck no lymphadenopathy and supple General: Negative for tenderness Chest Wall Chest: Negative for tenderness Resp normal respiratory effort and normal air movement Effort and Inspection: symmetric chest movement; Negative for respiratory distress Cardio regular rate, regular rhythm and no murmurs Peripheral Pulses: pulses 2+ throughout GI normal to inspection, nondistended, normoactive bowel sounds and non-tender Palpation: Negative for guarding or rebound tenderness present Back/Spine no CVA tenderness and no thoracic nor lumbar tenderness Extremity normal to inspection General Extremety ED: Negative for edema or tenderness General Extremity: Negative for edema Neuro oriented x3 and no sensory deficits noted Sensorium / Orientation: awake and alert Skin no rashes or lesions noted and no wounds MDM MDM MDM Narrative Medical decision making narrative: Interventions / MDM: Differential diagnosis: Right ear pain, foreign body Diagnosis considered but do not suspect: N/A My EKG interpretation: N/A Imaging independently reviewed and interpreted by myself: N/A External documents reviewed: N/A Test considered but not ordered:N/A ED course: History concerns for insect right ear. Viscous lidocaine placed, removal with Carroll tip. TM intact post removal. Outpatient follow-up as needed. Procedure note: Verbal consent. Viscous lidocaine placed in the ear and allowed to sit, ear evaluation did note insect external canal. 10 Amharic Carroll tip to suctioning was placed, removal fluid and insect. Residual earwax also removed. TM evaluation was intact with no signs of injury. Patient tolerated procedure well. Re-evaluation: stable Disposition discussed with patient/family/significant other: patient Case discussed with consulting clinician: N/A This note was generated with Miradia dictation software. It may contain incorrect words, spelling, and punctuation that were not noted in checking the note before signing. Discharge Plan Triage Chief Complaint: Foreign Body ED Provider: Vic Fink Dx/Rx/DC Orders Clinical Impression: Foreign body in right ea (more content not included)... Normal [facility] Emergency Department Summary on 04-10-2023 Emergency Department Summary [facility] Medical Records Department [address] [place] [address] Emergency Department Summary 04/10/23 MR#: [id number] Acct: [id number] Name: CHERELLE COSME Rep #: [id number] : 1995 28 From: Dylon Faulkner DO PCP: Care Physician,No Primary Status:DEP ER Location: ED HPI History of Present Illness Chief Complaint: Dental Informant: patient Onset/Context/Timing Onset: Weeks Context: Gradual Onset Timing: Intermittent Quality: Throbbing, aching Location: Left lower molars Worsened by: Nothing Relieved by: NSAIDs Associated Symptoms Assocated Symptom - Dental: jaw swelling, face swelling, cold sensitivity and hot sensitivity; Negative for fever Narrative Narrative: Patient presents with left lower dental pain that has been getting worse over the past couple weeks. Patient recently moved to the area and does not have a dentist. Patient states her pain is throbbing and aching. Patient states it is over the left lower molars. Patient states she has been taking ibuprofen which has been helping until today. Patient admits to some swelling of her jaw and face today. Patient also admits to hot and cold sensitivity. Patient denies any fevers or chills. PFSH PFSH Medical History no medical history no medical history Home Medications clindamycin HCl 300 mg capsule (Cleocin HCl) 300 mg PO Q6H #40 CAPSULES 04/10/23 [Rx Last Taken Unknown] naproxen 500 mg tablet 500 mg PO BID PRN #20 tabs 04/10/23 [Rx Last Taken Unknown] Allergy/AdvReac Type Severity Reaction Status Date / Time amoxicillin Allergy Anaphylaxis Verified 04/10/23 18:30 Penicillins Allergy Anaphylaxis Verified 04/10/23 18:12 Surgical History History of tonsillectomy Social History (Updated 04/10/23 @ 18:[address] Dylon Faulkner DO) Smoking Status: Current every day smoker tobacco type: cigarettes Smoking packs per day: 0.5 Smoking cigarettes per day: 10.0 ROS ROS ED Constitutional Constitutional ED: Denies chills or fever(s) Eyes Eyes: Denies blurry vision or change in vision ENT ENT ED: Denies rhinorrhea or sore throat Cardiovascular Cardiovascular: Denies chest pain or palpitations Respiratory/Chest Respiratory/Chest: Denies cough or dyspnea Gastrointestinal Gastrointestinal: Denies nausea or vomiting Genitourinary Genitourinary ED: Denies dysuria or hematuria Musculoskeletal Musculoskeletal: Reports neck pain; Denies back pain Integumentary Reports rash; Denies abscess Neurologic Neurologic: Denies headache(s) or weakness Allergic/Immunologic Allergic/Immunologic ED: Denies mouth swelling or urticaria EXAM Physical Exam Const Vital Signs: 04/10/23 18:12 Temperature 97.8 F Temperature Source Temporal Pulse Rate 65 Respiratory Rate 19 H Blood Pressure 134/97 H Blood Pressure Mean 109 Pulse Ox 99 Oxygen Delivery Method Room Air Positive well nourished, well developed and obese General Appearance ED: well developed and NAD Nutritional Appearance: obese HEENT Mouth ED: Yes lips normal and Yes tongue normal Mouth: lips normal and tongue normal Teeth and Gingiva: caries and poor dentition Throat: posterior oropharynx normal Neck supple and no JVD General: Negative for anterior neck swelling, tenderness or submandibular swelling Neuro oriented x3, CN's II-XII intact bilaterally, moves all extremities, no focal motor deficits and no sensory deficits noted Sensorium / Orientation: alert Motor Exam: strength 5/5 throughout Psych mental status grossly normal MDM MDM MDM Narrative Medical decision making narrative: Patient was advised that this is most likely an infected dental carry. Patient was instructed to stop taking ibuprofen. Patient was given a prescription for Naprosyn. Patient was also given a prescription for clindamycin due to her penicillin allergy. Patient was given her first dose here. Patient was given a dental referral list. Patient was instructed to follow-up with a dentist in 5 to 7 days. Patient understood and was agreeable with the plan. All questions were answered. Discharge Plan Triage Chief Complaint: Dental ED Provider: Dylon Faulkner Dx/Rx/DC Orders Clinical Impression: Infected dental caries Instructions: ED Dental Pain, ED Dental Cavity Prescriptions: New clindamycin HCl [Cleocin HCl] 300 mg capsule 300 mg PO Q6H Qty: 40 0RF naproxen 500 mg tablet 500 mg PO BID PRN Qty: 20 0RF Primary Care Provider: Care Physician,No Primary Referrals: Care Physician,No Primary [Primary Care Provider] - Dentist,Your [STAFF PHYSICIAN] - 5-7 Days Disposition Disposition: Home, Self Care What to do if you have Problems For any increased pain, shortness of breath, blee (more content not included)... Normal [facility] ED Provider Noteson 07-08-20 ED Provider Notes Encounter Department: [facility]: EMERGENCY CENTER ED Provider Notes by Lilly Melo MD at 07/08/2021 4:44 AM Author: REE Everettervice: Emergency MedicineAuthor Type: ED Physician Filed: 07/08/2021 4:54 AMDate of Service: 07/08/2021 4:44 AMStatus: Signed Supply Requirements Officer: Lilly Melo MD (ED Physician) CHIEF COMPLAINT History given by: patient History limited by: nothing Chief Complaint Patient presents with -Eye Problem HPI Cherelle Cosme is a 26 y.o. female who presents to ED with increased hearing and sensation of foreign body in her left eye. Patient states removed her contact to 4 hours ago when she had the sensation had redness and increased tearing but now she has photophobia. + pain behind left eye with headache. REVIEW OF SYSTEMS Constitutional: No fever, chills or recent illness. Eye: + photophobia, + increased tearing, + foreign body sensation Musculoskeletal: No new muscle aches or joint pain. Neuro: as per HPI Review of systems otherwise negative. PAST MEDICAL HISTORY Past Medical History: DiagnosisDate -Abnormal Pap smear of cervix colpo 2013 -Asthma -Chicken pox -Female infertility -Fibromyalgia -Mental disorder depression, anxiety -Polycystic ovarian disease -Sleep apnea -Thyroid disease hypo during last FAMILY HISTORY Family History ProblemRelationAge of Onset -HypertensionPaternal Grandfather -Heart diseasePaternal Grandfather -Other DiseasesPaternal Grandmother blood clots after years of smoking -Heart failureMaternal Grandmother -COPDMaternal Grandmother -Breast cancerMaternal Grandmother had cancer twice -DiabetesMaternal Grandmother -HypertensionFather -Heart attackFather -Other DiseasesMother cancer cells in ovary SOCIAL HISTORY Social History Socioeconomic History -Marital status:Single Spouse name:None -Number of children:None -Years of education:None -Highest education level:None Occupational History -None Tobacco Use -Smoking status:Current Every Day Smoker Packs/day:0.50 Years:16.00 Pack years:8.00 Types:Cigarettes -Smokeless tobacco:Never Used Vaping Use -Vaping Use:Never used Substance and Sexual Activity -Alcohol use:Not Currently -Drug use:Yes Types:Marijuana Comment: occasional -Sexual activity:Yes control/protection:None Other TopicsConcern -None Social History Narrative -None Social Determinants of Health Financial Resource Strain: -Difficulty of Paying Living Expenses: Not on file Food Insecurity: -Worried About Running Out of Food in the Last Year: Not on file -Ran Out of Food in the Last Year: Not on file Transportation Needs: -Lack of Transportation (Medical): Not on file -Lack of Transportation (Non-Medical): Not on file Physical Activity: -Days of Exercise per Week: Not on file -Minutes of Exercise per Session: Not on file Stress: -Feeling of Stress : Not on file Social Connections: -Frequency of Communication with Friends and Family: Not on file -Frequency of Social Gatherings with Friends and Family: Not on file -Attends Episcopalian Services: Not on file -Active Member of Clubs or Organizations: Not on file -Attends Club or Organization Meetings: Not on file -Marital Status: Not on file Intimate Partner Violence: -Fear of Current or Ex-Partner: Not on file -Emotionally Abused: Not on file -Physically Abused: Not on file -Sexually Abused: Not on file SURGICAL HISTORY Past Surgical History: ProcedureLateralityDate -TONSILLECTOMY CURRENT MEDICATIONS Outpatient Medications Marked as Taking for the 07/08/21 encounter (Hospital Encounter) MedicationSigDispenseRefill -aspirin/acetaminophen/caff eine (EXCEDRIN EXTRA STRENGTH PO)Take by mouth. ALLERGIES Allergies AllergenReactions -PenicillinsAnaphylaxis -AmoxicillinHives PHYSICAL EXAM VITAL SIGNS: ED Triage Vitals [07/08/21 0347] BP123/73 Temp97.4 ?F (36.3 ?C) Pulse57 Resp16 EcQ223 % Fannmj332 lb (96.2 kg) Almyra Coma Scale Score15 BMI (Calculated)33.3 Constitutional: Well developed, Well nourished HENT: Normocephalic,Oropharynx moist, No oral exudates, Nose normal. Eyes: PERRL, EOMI, Conjunctiva left eye is injected, no contact in place, increased tearing. Fluorescein stain increased uptake in center of eye. No foreign body visualized, no flare in anterior chamber visualized. No discharge RADIOLOGY/PROCEDURES No data to display I personally reviewed the images. The radiologist's interpretation reveals: Last Imaging results No results found for this visit on 07/08/21. MEDS GIVEN IN ED: Medications proparacaine (ALCAINE) 0.5 % ophthalmic solution 1 drop (has no administration in time range) fluorescein ophthalmic strip 1 strip (has no administration in time range) ciprofloxacin HCl (CILOXAN) 0.3 % ophthalmic solution 2 drop (has no administration in time range) ketorolac (TORADOL) i (more content not included)... Normal [facility] ED Provider Noteson 04-04-20 ED Provider Notes Encounter Department: [facility]: EMERGENCY CENTER ED Provider Notes by Michael Kingsley MD at 04/04/2021 9:28 PM Author: REE Doeervice: Emergency MedicineAuthor Type: ED Physician Filed: 04/05/2021 5:15 AMDate of Service: 04/04/2021 9:28 PMStatus: Signed Supply Requirements Officer: Michael Kingsley MD (ED Physician) TRIAGE CHIEF COMPLAINT: Chief Complaint Patient presents with -Hand Injury HPI: Cherelle Cosme is a 26 y.o. female who presents with a complaint of right hand pain. 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 She has developed pain radiating from the base of her dorsal right thumb to the tip of her right thumb as well as radiating proximally to the mid forearm. She states that she has had decreased automatic lump making machine tender strength with the pain, and that it is aggravated by movement. She denies any known injuries, numbness, tingling. She has not taken anything for symptoms. She has not found any alleviating factors for the pain and denies any migration. REVIEW OF SYSTEMS: Review of Systems Constitutional: Negative for activity change, appetite change, chills and fever. HENT: Negative for congestion, rhinorrhea and sore throat. Eyes: Negative for visual disturbance. Respiratory: Negative for cough, shortness of breath, wheezing and stridor. Cardiovascular: Negative for chest pain, palpitations and leg swelling. Gastrointestinal: Negative for abdominal pain, constipation, diarrhea, nausea and vomiting. Genitourinary: Negative for dysuria, hematuria, vaginal bleeding, vaginal discharge and vaginal pain. Musculoskeletal: Positive for arthralgias. Negative for back pain, joint swelling, myalgias and neck pain. Skin: Negative for color change, pallor, rash and wound. Allergic/Immunologic: Negative for immunocompromised state. Neurological: Negative for weakness, light-headedness, numbness and headaches. Hematological: Negative for adenopathy. Does not bruise/bleed easily. PAST MEDICAL HISTORY: Past Medical History: DiagnosisDate -Abnormal Pap smear of cervix colpo 2014 -Asthma -Chicken pox -Female infertility -Fibromyalgia -Mental disorder depression, anxiety -Polycystic ovarian disease -Sleep apnea -Thyroid disease hypo during last CURRENT MEDICATIONS: No current facility-administered medications on file prior to encounter. Current Outpatient Medications on File Prior to Encounter MedicationSigDispenseRefill -loratadine (CLARITIN) 10 mg tabletTake 10 mg by mouth daily. SURGICAL HISTORY: Past Surgical History: ProcedureLateralityDate -TONSILLECTOMY FAMILY HISTORY: Family History ProblemRelationAge of Onset -HypertensionPaternal Grandfather -Heart diseasePaternal Grandfather -Other DiseasesPaternal Grandmother blood clots after years of smoking -Heart failureMaternal Grandmother -COPDMaternal Grandmother -Breast cancerMaternal Grandmother had cancer twice -DiabetesMaternal Grandmother -HypertensionFather -Heart attackFather -Other DiseasesMother cancer cells in ovary SOCIAL HISTORY: Social History Socioeconomic History -Marital status:Single Spouse name:None -Number of children:None -Years of education:None -Highest education level:None Occupational History -None Tobacco Use -Smoking status:Current Every Day Smoker Packs/day:0.50 Years:16.00 Pack years:8.00 Types:Cigarettes -Smokeless tobacco:Never Used Vaping Use -Vaping Use:Never used Substance and Sexual Activity -Alcohol use:Not Currently -Drug use:Yes Types:Marijuana Comment: occasional -Sexual activity:Yes control/protection:None Other TopicsConcern -None Social History Narrative -None Social Determinants of Health Financial Resource Strain: -Difficulty of Paying Living Expenses: Food Insecurity: -Worried About Running Out of Food in the Last Year: -Ran Out of Food in the Last Year: Transportation Needs: -Lack of Transportation (Medical): -Lack of Transportation (Non-Medical): Physical Activity: -Days of Exercise per Week: -Minutes of Exercise per Session: Stress: -Feeling of Stress : Social Connections: -Frequency of Communication with Friends and Family: -Frequency of Social Gatherings with Friends and Family: -Attends Episcopalian Services: -Active Member of Clubs or Organizations: -Attends Club or Organization Meetings: -Marital Status: Intimate Partner Violence: -Fear of Current or Ex-Partner: -Emotionally Abused: -Physically Abused: -Sexually Abused: ALLERGIES: Penicillins and Amoxicillin PHYSICAL EXAM: TRIAGE VITALS: ED Triage Vitals [04/04/212118] BP134/78 Temp97.7 ?F (36.5 ?C) Pulse73 Resp18 HxU509 % Cuslpr057 lb (96.2 kg) Almyra Coma Scale Score BMI (Calculated)33.3 Constitutional: Mild distress, Non-toxic appearance HENT: Normocephalic, Atraumatic, Bilateral external ears normal, Oropharynx moist, Nose normal (more content not included)... Normal [facility] ED Provider Noteson 03-05-20 ED Provider Notes Encounter Department: [facility]: EMERGENCY CENTER ED Provider Notes by Jimmy Sage MD at 03/05/2021 9:12 PM Author: REE Ramirezervice: -Author Type: ED Physician Filed: 03/05/2021 10:00 PMDate of Service: 03/05/2021 9:12 PMStatus: Signed Supply Requirements Officer: Jimmy Sage MD (ED Physician) CHIEF COMPLAINT History given by: Patient History limited by: None Chief Complaint Patient presents with -Flu-like Symptoms HPI Cherelle Cosme is a 26 y.o. female who presents in bed 1 with body aches chills cough. Patient reported that her 8-month-old baby some cold-like symptoms last week and then after that his older son also has some sinus infection and yesterday patient started having some body aches and chills associated with sinus congestion postnasal drip and mild cough today. No abdominal pain nausea vomiting no shortness of breath. Patient also complains of a rash in the right forearm that has been going on for several months that comes and goes and it comes is itchy. Has tried diaper rash cream with no improvement. REVIEW OF SYSTEMS CONSTITUTIONAL:Denies fever, positive chills, no weight loss EYES: ENT: Positive sore throat or ear pain CARDIOVASCULAR: Denies chest pain, palpitations. No swelling RESPIRATORY: Positive cough, no shortness of breath GI: No nausea. No vomiting or diarrhea. No abdominal pain : No urinary frequency or hematuria MS:Denies back pain or other joint pain SKIN: No rash NEUROLOGIC: Denies headache. No extremity weakness. No paresthesia. ENDOCRINE: LYMPHATIC: Denies swollen glands PSYCHIATRIC: ALLERGIC:No pruritis or angioedema symptoms PAST MEDICAL HISTORY Past Medical History: DiagnosisDate -Abnormal Pap smear of cervix colpo 2014 -Asthma -Chicken pox -Female infertility -Fibromyalgia -Mental disorder depression, anxiety -Polycystic ovarian disease -Sleep apnea -Thyroid disease hypo during last FAMILY HISTORY Family History ProblemRelationAge of Onset -HypertensionPaternal Grandfather -Heart diseasePaternal Grandfather -Other DiseasesPaternal Grandmother blood clots after years of smoking -Heart failureMaternal Grandmother -COPDMaternal Grandmother -Breast cancerMaternal Grandmother had cancer twice -DiabetesMaternal Grandmother -HypertensionFather -Heart attackFather -Other DiseasesMother cancer cells in ovary SOCIAL HISTORY Social History Socioeconomic History -Marital status:Single Spouse name:Not on file -Number of children:Not on file -Years of education:Not on file -Highest education level:Not on file Occupational History -Not on file Tobacco Use -Smoking status:Current Every Day Smoker Packs/day:0.50 Years:16.00 Pack years:8.00 Types:Cigarettes -Smokeless tobacco:Never Used Vaping Use -Vaping Use:Never used Substance and Sexual Activity -Alcohol use:Not Currently -Drug use:Yes Types:Marijuana Comment: occasional -Sexual activity:Yes control/protection:None Other TopicsConcern -Not on file Social History Narrative -Not on file Social Determinants of Health Financial Resource Strain: -Difficulty of Paying Living Expenses: Food Insecurity: -Worried About Running Out of Food in the Last Year: -Ran Out of Food in the Last Year: Transportation Needs: -Lack of Transportation (Medical): -Lack of Transportation (Non-Medical): Physical Activity: -Days of Exercise per Week: -Minutes of Exercise per Session: Stress: -Feeling of Stress : Social Connections: -Frequency of Communication with Friends and Family: -Frequency of Social Gatherings with Friends and Family: -Attends [employer] Services: -Active Member of Clubs or Organizations: -Attends Club or Organization Meetings: -Marital Status: Intimate Partner Violence: -Fear of Current or Ex-Partner: -Emotionally Abused: -Physically Abused: -Sexually Abused: Foreign Travel in the last 21 days: None SURGICAL HISTORY Past Surgical History: ProcedureLateralityDate -TONSILLECTOMY CURRENT MEDICATIONS Outpatient Medications Marked as Taking for the 03/05/21 encounter (Hospital Encounter) MedicationSigDispenseRefill -loratadine (CLARITIN) 10 mg tabletTake 10 mg by mouth daily. ALLERGIES Allergies AllergenReactions -PenicillinsAnaphylaxis -AmoxicillinHives PHYSICAL EXAM VITAL SIGNS: ED Triage Vitals [03/05/213] BP119/87 Temp98.3 ?F (36.8 ?C) Pulse51 Resp18 FjQ9388 % Mdxyxd512 lb 3.2 oz (97.6 kg) Almyra Coma Scale Score15 BMI (Calculated)33.8 Constitutional: Well developed, Well nourished, no distress. HENT: Normocephalic, Atraumatic, Oropharynx moist, No oral exudates, Nose normal. Oropharynx normal with no redness no swelling no exudate. Eyes: Conjunctiva normal, No discharge. No scleral icterus. Neck: Normal range of motion, Supple. Lymphatic: No lymphadenopathy noted. Cardiova (more content not included)... Normal [facility] INFLUENZA A/B BY NEARon 05-0 INFLUENZA A Negative Normal Negative [facility] Comment on above: Performed By: #### [id number] #### [facility] [address] [place] [address] [address] [place] [address] INFLUENZA A/B BY NEAR Normal [facility] Comment on above: Result Comment: The Influenza A/B molecu lar assay is based on nicking enzyme amplification reaction (NEAR) technology. Release to patient->Immediate Performed By: #### L [id number] #### [facility] [address] [place] [address] [address] [place] [address] INFLUENZA B Negative Normal Negative [facility] Comment on above: Performed By: #### [id number] #### [facility] [address] [place] [address] [place] [address] SARS-COV-2 PCR SCREENINGon 0 03-05-2021 SARS-CoV-2 (COVID-19) RNA MARYLU+probe Ql (Unsp spec) Normal [facility] Comment on above: Result Comment: SARS-CoV-2 RNA detected by the real-time RT-PCR Stacie assay. This assay was developed and its performance characteristics determined by [facility]. This test has not been FDA cleared or approved. This test has been authorized by FDA under an Emergency Use Authorization (EUA). Negative results do not preclude SARS-CoV-2 infection and should not be used as the sole basis for treatment or other patient management decisions. Optimum specimen types and timing for peak viral levels during infections caused by SARS-CoV-2 have not been determined. Clinical correlation is always recommended. Indication for PCR screening->ED T/R Symptomatic First test->Yes Employed in healthcare->No Symptomatic as defined by CDC->Yes Hospitalized->No ICU->No Resident in a congregate care setting (including nursing homes, residential care for people with intellectual and developmental disabilities, psychiatric treatment facilities, group homes, board and care homes, homeless [place] health care facility, foster care, etc)->No ->No Release to patient->Immediate Performed By: #### L [id number] #### [address] [address] [place] [address] SARS-CoV-2 (COVID-19) RNA MARYLU+probe Ql (Unsp spec) Not detected Normal Negative [facility] Comment on above: Performed By: #### [id number] #### [address] [address] [place] [address] ED Provider Noteson 10-12-20 20 ED Provider Notes Encounter Department: [facility] EMERGENCY DEPARTMENT ED Provider Notes by Tobin Fernandez DO at 10/12/2020 1:36 PM Author: Neotsu Jim, DOService: -Author Type: ED Physician Filed: 10/13/2020 9:57 AMDate of Service: 10/12/2020 1:36 PMStatus: Addendum Supply Requirements Officer: Tobin Fernandez DO (ED Physician) Related Notes: Original Note by Tobin Fernandez DO (ED Physician) filed at 10/12/2020 2:10 PM FINAL IMPRESSION ICD-10-CM 1.Abscess of right axilla L02.411 DISPOSITION PLAN Home DISCHARGE MEDICATIONS New Prescriptions No medications on file CHIEF COMPLAINT Chief Complaint Patient presents with -Medical Problem HPI Cherelle Cosme is a 25 y.o. female who presents with right axillary nodule presented to [facility]. Patient states she has been having pain over the last couple days progressively worse. States she has had this in the past but this 1 is worse. She denies any fevers, chills, chest pain, shortness of breath. States it started couple days ago and she tried to have busted and it got worse as it went backwards. She denied any nausea, vomiting, diarrhea constipation. She denied it spread anywhere. She denies new medication or change medications. States pain is mild to moderate specially when she moves her arm. Patient denied any recent trauma or injury. States the pain is sharp and 7 on scale 1-10. She denied any trauma or injury. She denied numbness or tingling. Past medical history is positive for abnormal Pap smear, asthma, chickenpox, fibromyalgia, depression, PCOS, sleep apnea and hypothyroidism. Family history positive for hypertension, heart disease, CHF, COPD and diabetes. Patient is a smoker but denies drugs or alcohol. REVIEW OF SYSTEMS CONSTITUTIONAL: Denies fever. Denies chills. Denies weight loss. EYES: Denies vision changes. ENT: Denies sore throat. Denies ear pain. CARDIOVASCULAR: Denies chest pain. Denies palpitations. Denies swelling. RESPIRATORY: Denies cough. Denies shortness of breath. GI: Denies abdominal pain. Denies nausea. Denies vomiting. Denies diarrhea. : Denies dysuria. Denies urinary frequency. Denies hematuria. MS: Denies any new back pain. Denies any new joint pain. SKIN: Abscess under the right arm pit. NEUROLOGIC: Denies headache. Denies extremity weakness. Denies paresthesias. ENDOCRINE: Denies polydipsia/polyuria. HEMATOLOGIC/LYMPHATIC: Denies swollen glands. Denies anemia. PSYCHIATRIC: Denies SI/HI. ALLERGIC: Denies pruritis. Denies angioedema. PAST MEDICAL HISTORY Past Medical History: DiagnosisDate -Abnormal Pap smear of cervix colpo 2013 -Asthma -Chicken pox -Female infertility -Fibromyalgia -Mental disorder depression, anxiety -Polycystic ovarian disease -Sleep apnea -Thyroid disease hypo during last FAMILY HISTORY Family History ProblemRelationAge of Onset -HypertensionPaternal Grandfather -Heart diseasePaternal Grandfather -Other DiseasesPaternal Grandmother blood clots after years of smoking -Heart failureMaternal Grandmother -COPDMaternal Grandmother -Breast cancerMaternal Grandmother had cancer twice -DiabetesMaternal Grandmother -HypertensionFather -Heart attackFather -Other DiseasesMother cancer cells in ovary SOCIAL HISTORY Social History Socioeconomic History -Marital status:Single Spouse name:None -Number of children:None -Years of education:None -Highest education level:None Occupational History -None Social Needs -Financial resource strain:None -Food insecurity Worry:None Inability:None -Transportation needs Medical:None Non-medical:None Tobacco Use -Smoking status:Current Every Day Smoker Packs/day:0.25 Years:16.00 Pack years:4.00 Types:Cigarettes -Smokeless tobacco:Never Used Substance and Sexual Activity -Alcohol use:Not Currently Frequency:Never -Drug use:Not Currently Types:Marijuana -Sexual activity:Yes control/protection:None Lifestyle -Physical activity Days per week:None Minutes per session:None -Stress:None Relationships -Social connections Talks on phone:None Gets together:None Attends mosque service:None Active member of club or organization:None Attends meetings of clubs or organizations:None Relationship status:None -Intimate partner violence Fear of current or ex partner:None Emotionally abused:None Physically abused:None Forced sexual activity:None Other TopicsConcern -None Social History Narrative -None SURGICAL HISTORY Past Surgical History: ProcedureLateralityDate -TONSILLECTOMY CURRENT MEDICATIONS No outpatient medications have been marked as taking for the 10/12/20 encounter (Hospital Encounter). ALLERGIES Allergies AllergenReactions -PenicillinsAnaphylaxis -AmoxicillinHives PHYSICAL EXAM VITAL SIGNS: ED Triage Vitals BP112/13/19 [id number] T (more content not included)... Normal [facility] BETA STREP CULTUREon 019 BETA STREP CULTURE No beta Strep isolated. Normal [facility] Comment on above: Performed By: #### [id number] ####[facility] [address] [place] [address]#### [id number] ####[place] [address] Influenza A & B, Swab/NWon 0 01-24-2019 INFLUENZA A ANTIGEN Negative Normal NEGATIVE [facility] Comment on above: Performed By: #### [id number] ####[place] [address] INFLUENZA B ANTIGEN Negative Normal NEGATIVE [facility] Comment on above: Performed By: #### [id number] ####[place] [address] STREP-A SCREENon 01-24-2019 STREP-A SCREEN Negative Normal NEGATIVE [facility] Comment on above: Result Comment: BETA STREP CULTURE PERFO RMED Performed By: #### L [id number] ####[place] [address]#### [id number] ####[place] [address] CBCon 12-03-2018 Basophils Abs. = 0.0 Normal 0.0-0.1 [facility] Comment on above: Performed By: #### [id number], [id number], LAB 203 #### [facility] [address] [place] [address] Basophils/100 WBC (Bld) 0.2 % Normal 0.0-1.0 [facility] Comment on above: Performed By: #### [id number], [id number], LAB 203 #### [facility] [address] [place] [address] Eosinophils #/vol (Bld) 0.1 10*3/uL Normal 0.0-0.5 [facility] Comment on above: Performed By: #### [id number], CQX6004, LAB 2035 #### [facility] [address] [place] [address] Eosinophils #/vol (Bld) 0.5 10*3/uL Normal 0.3-5.0 [facility] Comment on above: Performed By: #### [id number], FCA6858, LAB 2035 #### [facility] [address] [place] [address] Erythrocyte distribution width Ratio (RBC) 13.7 % High 11.5-13.1 [facility] Comment on above: Performed By: #### [id number], [id number], LAB 2035 #### [facility] [address] [place] [address] Hematocrit Volume Fraction (Bld) 46.2 % Normal 33.0-51.0 [facility] Comment on above: Performed By: #### [id number], XSF4732, LAB 2035 #### [facility] [address] [place] [id number] Hemoglobin mass conc (Bld) 15.7 g/dL Normal 12.0-16.0 [facility] Comment on above: Performed By: #### QFU1328, WQI1391, LAB 2035 #### [facility] [address] [place] [address] Lymphocytes #/vol (Bld) 9 10*3/uL Low 24.0-44.0 [facility] Comment on above: Performed By: #### [id number], LUD9774, LAB 2035 #### [facility] [address] [place] [address] Lymphocytes #/vol (Bld) 1.4 10*3/uL Normal 1.1-5.0 [facility] Comment on above: Performed By: #### [id number], RYC2094, LAB 2035 #### [facility] [address] [place] [address] MCH Entitic mass (RBC) 29.1 pg Normal 26.0-34.0 [facility] Comment on above: Performed By: #### [id number], QBQ1363, LAB 2035 #### [facility] [address] [place] [address] MCHC mass conc (RBC) 34 g/dL Normal 32.0-36.0 [facility] Comment on above: Performed By: #### GRP1688, PRP7344, LAB 2035 #### [facility] [address] [place] [address] MCV Entitic volume (RBC) 85.6 fL Normal 80.0-100.0 [facility] Comment on above: Performed By: #### [id number], LOU6219, LAB 2035 #### [facility] [address] [place] [address] Monocytes #/vol (Bld) 3.8 10*3/uL Normal 2.1-13.3 [facility] Comment on above: Performed By: #### [id number], WYJ1298, LAB 2035 #### [facility] [address] [place] [address] Monocytes #/vol (Bld) 0.6 10*3/uL Normal 0.0-1.4 [facility] Comment on above: Performed By: #### [id number], [id number], LAB 2035 #### [facility] [address] [place] [address] Neutrophils #/vol (Bld) 86.5 10*3/uL High 35.0-66.0 [facility] Comment on above: Performed By: #### DIB2583, FCJ2763, LAB 2035 #### [facility] [address] [place] [address] Neutrophils Abs. = 13.2 High 1.5-8.5 [facility] Comment on above: Performed By: #### [id number], UWP1431, LAB 2035 #### [facility] [address] [place] [address] Platelet cnt = 323 Normal 150-450 [facility] Comment on above: Performed By: #### [id number], MHR6375, LAB 2035 #### [facility] [address] [place] [address] Platelet mean volume Entitic volume (Bld) 8.8 fL Normal 6.5-10.0 [facility] Comment on above: Performed By: #### PVB0945, OWS6868, LAB 2035 #### [facility] [address] [place] [address] RBC #/vol (Bld) 5.4 10*6/uL High 4.00-5.20 [facility] Comment on above: Performed By: #### KFD8667, SQR3725, LAB 2035 #### [facility] [address] [place] [address] WBC #/vol (Bld) 15.3 10*3/uL High 4.5-11.0 [facility] Comment on above: Performed By: #### VWQ2478, OWT0965, LAB 2035 #### [facility] [address] [place] [address] COMPREHENSIVE METABOLIC PANE Damon 12-03-2018 Albumin mass conc 4.9 g/dL Normal 3.2-5.0 [facility] Comment on above: Performed By: #### [id number], MLI0433, LAB 2035 #### [facility] [address] [place] [address] Albumin/Globulin mass ratio 1.1 {ratio} Normal [facility] Comment on above: Performed By: #### TZT7054, QFR3598, LAB 2035 #### [facility] [place] [address] ALP enzyme act/vol 73 U/L Normal 42-121 [facility] Comment on above: Performed By: #### XQG1492, TIL4501, LAB 2035 #### [facility] [address] [place] [address] ALT enzyme act/vol 13 U/L Normal 10-60 [facility] Comment on above: Performed By: #### VDQ0201, OYN2739, LAB 2035 #### [facility] [address] [place] [address] Anion gap molar conc 11 mmol/L Normal [facility] Comment on above: Performed By: #### TRO3109, MOX2905, LAB 2035 #### [facility] [address] [place] [address] AST enzyme act/vol 24 U/L Normal 10-42 [facility] Comment on above: Performed By: #### EKJ0068, RRD4547, LAB 2035 #### [facility] [address] [place] [address] B/C = 15 Normal 10-20 [facility] Comment on above: Performed By: #### BKZ1427, USD6532, LAB 2035 #### [facility] [address] [place] [address] Bilirubin.direct mass conc 0.7 mg/dL Normal 0.2-1.0 [facility] Comment on above: Performed By: #### QAH0551, EXQ0899, LAB 2035 #### [facility] [address] [place] [address] Calcium mass conc 9.9 mg/dL Normal 8.5-10.5 [facility] Comment on above: Performed By: #### CPV1775, CWN9939, LAB 2035 #### [facility] [address] [place] [address] Chloride molar conc 103 mmol/L Normal 101-111 [facility] Comment on above: Performed By: #### [id number], OXC2593, LAB 2035 #### [facility] [address] [place] [address] CO2 molar conc 20 mmol/L Low 21-31 [facility] Comment on above: Performed By: #### MIW7916, JQY9665, LAB 2035 #### [facility] [address] [place] [address] Creatinine mass conc 1 mg/dL Normal 0.4-1.0 [facility] Comment on above: Performed By: #### NUT5996, BSF1903, LAB 2035 #### [facility] [address] [place] [address] GFR/1.73 sq M.predicted MDRD vol rate/area 68 mL/min/{1.73_m2} Normal [facility] Comment on above: Result Comment: *The estimated Glomerula r Filtration Rate(EGFR) may not be accurate for children under the age of 18 yrs. To estimate the GFR for -Americans multiply the result provided by 1.21. Stage 1 90 mL/min or greater Stage 2 60-89 mL/min Stage 3 30-59 mL/min Stage 4 15-29 mL/min Stage 5 14 mL/min or less Performed By: #### L PG9005, ZPD4608, SKV9534 #### [facility] [address] [place] [address] Glucose mass conc 117 mg/dL High 70-110 [facility] Comment on above: Performed By: #### IYG8354, EUT0321, LAB 2035 #### [facility] [address] [place] [address] Osmolality 270 mosm/kg Normal 266-309 [facility] Comment on above: Performed By: #### QBG6514, DRJ6810, LAB 2035 #### [facility] [address] [place] [address] Potassium molar conc 4.6 mmol/L Normal 3.6-5.0 [facility] Comment on above: Result Comment: slightly hemolyzed Performed By: #### L YG4836, IVS6776, MQO1556 #### [facility] [address] [place] [address] Protein mass conc 9.2 g/dL High 6.7-8.2 [facility] Comment on above: Performed By: #### BOH4460, GLI4362, LAB 2035 #### [facility] [address] [place] [address] Sodium molar conc 134 mmol/L Low 135-145 [facility] Comment on above: Performed By: #### QCZ1517, XWR9438, LAB 2035 #### [facility] [address] [place] [address] Urea nitrogen mass conc 15 mg/dL Normal 6-20 [facility] Comment on above: Performed By: #### HOX1159, OQU1945, LAB 2035 #### [facility] [address] [place] [address] LACTIC ACIDon 12-03-2018 Lactate molar conc 1 mmol/L Normal 0.5-1.9 [facility] Comment on above: Performed By: #### [id number] ####[facility] [address] [place] [address] LIPASEon 12-03-2018 Lipase enzyme act/vol 23 U/L Normal 7-58 [facility] Comment on above: Performed By: #### MNP1903, YEM3277, LAB 2035 ####[facility] [address] [place] [address] URINALYSISon 12-03-2018 BACT/HPF Many Abnormal ABSENT [facility] Comment on above: Performed By: #### [id number] #### [facility] [place] [address] #### [id number] #### [address] [address] CASTS/LPF Absent Normal ABSENT [facility] Comment on above: Performed By: #### [id number] #### [facility] [address] [place] [address] #### [id number] #### [address] [address] CRYSTALS/HPF Absent Normal ABSENT [facility] Comment on above: Performed By: #### [id number] #### [facility] [address] [place] [address] #### [id number] #### [facility] [address] [place] [address] EPITH/HPF 10 - 20 Abnormal 3-5 [facility] Comment on above: Performed By: #### [id number] #### [facility] [address] [place] [address] #### [id number] #### [facility] [address] [place] [address] MUCOUS/HPF Small Abnormal ABSENT [facility] Comment on above: Performed By: #### [id number] #### [facility] [address] [place] [address] #### [id number] #### [facility] [address] [place] [address] RBC/HPF 3 - 5 Normal 1-3 [facility] Comment on above: Performed By: #### [id number] #### [facility] [address] [place] [address] #### [id number] #### [facility] [address] [place] [address] WBC/HPF 10 - 20 Abnormal 1-3 [facility] Comment on above: Performed By: #### [id number] #### [facility] [address] [place] [address] #### [id number] #### [facility] [address] [place] [address] Bilirubin mass conc Small Abnormal NEGATIVE [facility] Comment on above: Performed By: #### [id number] #### [facility] [address] [place] [address] #### [id number] #### [facility] [address] [place] [address] BLOOD Small Abnormal NEGATIVE [facility] Comment on above: Performed By: #### [id number] #### [facility] [address] [place] [address] #### [id number] #### [facility] [address] [place] [address] Clarity Nom (U) Clear Normal CLEAR [facility] Comment on above: Performed By: #### [id number] #### [facility] [address] [place] [address] #### [id number] #### [facility] [address] [place] [address] Color Nom (U) Yellow Normal YELLOW [facility] Comment on above: Performed By: #### [id number] #### [facility] [address] [place] [address] #### [id number] #### [facility] [address] [place] [address] Glucose mass conc Negative Normal NEGATIVE [facility] Comment on above: Performed By: #### [id number] #### [facility] [address] [place] [address] #### [id number] #### [facility] [address] [place] [address] KETONE Trace Abnormal NEGATIVE [facility] Comment on above: Performed By: #### [id number] #### [facility] [address] [place] [address] #### [id number] #### [place] [address] Nitrite Ql (U) Negative Normal NEGATIVE [facility] Comment on above: Performed By: #### [id number] #### [facility] [address] [place] [address] #### [id number] #### [facility] [address] [place] [address] pH (Bld) = 5.5 Normal 5.0-9.0 [facility] Comment on above: Performed By: #### [id number] #### [facility] [address] [place] [address] #### [id number] #### [facility] [address] [place] [address] Protein mass conc (U) 30 mg/dL Abnormal NEGATIVE [facility] Comment on above: Performed By: #### [id number] #### [facility] [address] [place] [address] #### [id number] #### [facility] [address] [place] [address] SP GRAVITY >= 1.030 Normal 1.005-1.030 [facility] Comment on above: Performed By: #### [id number] #### [place] [address] #### [id number] #### [place] [address] UROBIL = 0.2 Normal 0.2-1.0 [facility] Comment on above: Performed By: #### [id number] #### [place] [address] #### [id number] #### [place] [address] WBC #/vol (Bld) Trace Abnormal NEGATIVE [facility] Comment on above: Performed By: #### [id number] #### [place] [address] #### [id number] #### [place] [address] URINE CULTUREon 12-03-2018 Bacteria identified Cx Nom (U) COLONY COUNT: 10-100K cfu/ml three or more organisms present, indicates poor specimen. Suggest repeat collection. Normal [facility] Comment on above: Performed By: #### [id number] #### [facility] [address] [place] [address] #### [id number] #### [place] [address] Influenza A & B, Swab/NWon 1 12-10-2017 INFLUENZA A ANTIGEN Negative Normal NEGATIVE [facility] Comment on above: Performed By: #### [id number] #### [facility] [address] [place] [address] INFLUENZA B ANTIGEN Negative Normal NEGATIVE [facility] Comment on above: Performed By: #### [id number] #### [facility] [address] [place] [address] HAND LT MINIMUM 3 VIEWSon Cholesterol in HDL mass conc PROCEDURE: HAND LT MINIMUM OF 3 VIEWS CLINICAL: FINGER PAIN FINDINGS: The examination fails to demonstrate evidence of an acute fracture, radiopaque foreign body, dislocation, or soft tissue abnormality. There is no evidence of joint space narrowing to suggest an arthropathy. IMPRESSION: Negative study. Electronically signed by: Chris Jackson M.D., MS Date/time: 06-23-2018, 02:25 PM Final Report Normal [facility] URINALYSISon 06-21-2018 BACT/HPF Few Abnormal ABSENT [facility] Comment on above: Performed By: #### [id number] #### [facility] [address] [place] [address] CASTS/LPF Absent Normal ABSENT [facility] Comment on above: Performed By: #### [id number] #### [facility] [address] [place] [address] CRYSTALS/HPF Absent Normal ABSENT [facility] Comment on above: Performed By: #### [id number] #### [facility] [address] [place] [address] EPITH/HPF 3 - 5 Normal 3-5 [facility] Comment on above: Performed By: #### [id number] #### [facility] [address] [place] [address] MUCOUS/HPF None seen Normal ABSENT [facility] Comment on above: Performed By: #### [id number] #### [facility] [address] [place] [address] RBC/HPF 50 - 75 Abnormal 1-3 [facility] Comment on above: Performed By: #### [id number] #### [facility] [address] [place] [address] WBC/HPF 3 - 5 Normal 1-3 [facility] Comment on above: Performed By: #### [id number] #### [facility] [address] [place] [address] Protein mass conc (U) 100 mg/dL Abnormal NEGATIVE [facility] Comment on above: Performed By: #### [id number] #### [facility] [address] [place] [address] UR BILIRUBIN Negative Normal NEGATIVE [facility] Comment on above: Performed By: #### [id number] #### [facility] [address] [place] [address] UR BLOOD Large Abnormal NEGATIVE [facility] Comment on above: Performed By: #### [id number] #### [facility] [address] [place] [address] UR CLARITY Cloudy Abnormal CLEAR [facility] Comment on above: Performed By: #### [id number] #### [facility] [address] [place] [address] UR COLOR Yellow Normal YELLOW [facility] Comment on above: Performed By: #### [id number] #### [facility] [address] [place] [address] UR GLUCOSE Negative Normal NEGATIVE [facility] Comment on above: Performed By: #### [id number] #### [facility] [address] [place] [address] UR KETONE Negative Normal NEGATIVE [facility] Comment on above: Performed By: #### [id number] #### [facility] [address] [place] [address] UR LEUKOCYTES Small Abnormal NEGATIVE [facility] Comment on above: Performed By: #### [id number] #### [facility] [address] [place] [address] UR NITRITE Negative Normal NEGATIVE [facility] Comment on above: Performed By: #### [id number] #### [facility] [address] [place] [address] UR PH = 7.0 Normal 5.0-9.0 [facility] Comment on above: Performed By: #### [id number] #### [facility] [address] [place] [address] UR SP GRAVITY = 1.020 Normal 1.005-30 [facility] Comment on above: Performed By: #### [id number] #### [facility] [address] [place] [address] UR UROBILINOGEN = 0.2 Normal 0.2-1.0 [facility] Comment on above: Performed By: #### [id number] #### [facility] [address] [place] [address] PREG TEST, UA QUALon 018 TEST,UR QL Negative Normal NEGATIVE [facility] Comment on above: Performed By: #### [id number] #### [facility] [address] [place] [address] URINALYSISon 05-26-2018 BACT/HPF Many Abnormal ABSENT [facility] Comment on above: Performed By: #### [id number] #### [facility] [address] [place] [address] CASTS/LPF Absent Normal ABSENT [facility] Comment on above: Performed By: #### [id number] #### [facility] [address] [place] [address] CRYSTALS/HPF Absent Normal ABSENT [facility] Comment on above: Performed By: #### [id number] #### [facility] [address] [place] [address] EPITH/HPF 5 - 10 Abnormal 3-5 [facility] Comment on above: Performed By: #### [id number] #### [facility] [address] [place] [address] MUCOUS/HPF None seen Normal ABSENT [facility] Comment on above: Performed By: #### [id number] #### [facility] [address] [place] [address] RBC/HPF Occasional Normal 1-3 [facility] Comment on above: Performed By: #### [id number] #### [facility] [address] [place] [address] WBC/HPF 3 - 5 Normal 1-3 [facility] Comment on above: Performed By: #### [id number] #### [facility] [address] [place] [address] Protein mass conc (U) 30 mg/dL Abnormal NEGATIVE [facility] Comment on above: Performed By: #### [id number] #### [facility] [address] [place] [address] UR BILIRUBIN Small Abnormal NEGATIVE [facility] Comment on above: Performed By: #### [id number] #### [facility] [address] [place] [address] UR BLOOD Small Abnormal NEGATIVE [facility] Comment on above: Performed By: #### [id number] #### [facility] [address] [place] [address] UR CLARITY Clear Normal CLEAR [facility] Comment on above: Performed By: #### [id number] #### [facility] [address] [place] [address] UR COLOR Yellow Normal YELLOW [facility] Comment on above: Performed By: #### [id number] #### [facility] [address] [place] [address] UR GLUCOSE Negative Normal NEGATIVE [facility] Comment on above: Performed By: #### [id number] #### [facility] [address] [place] [address] UR KETONE Negative Normal NEGATIVE [facility] Comment on above: Performed By: #### [id number] #### [facility] [address] [place] [address] UR LEUKOCYTES Trace Abnormal NEGATIVE [facility] Comment on above: Performed By: #### [id number] #### [facility] [address] [place] [address] UR NITRITE Negative Normal NEGATIVE [facility] Comment on above: Performed By: #### [id number] #### [facility] [address] [place] [address] UR PH = 5.5 Normal 5.0-9.0 [facility] Comment on above: Performed By: #### [id number] #### [facility] [address] [place] [address] UR SP GRAVITY = 1.025 Normal 1.005-30 [facility] Comment on above: Performed By: #### [id number] #### [facility] [address] [place] [address] UR UROBILINOGEN = 0.2 Normal 0.2-1.0 [facility] Comment on above: Performed By: #### [id number] #### [facility] [address] [place] [address] XR CHEST PA AND LATERALon XR CHEST PA AND LATERAL [facility] [address] [place] [address] Radiology PATIENT NAME: Cherelle Cosme MR#: [id number] PROCEDURE DATE: 03/20/2018 ROOM#: ORDERING PHYS: Brielle Engle EXAM: Chest two views dated 03/20/2018. CLINICAL INDICATION: Shortness of breath x1 day. COMPARISON: 12/20/2015. PROCEDURE:PA and lateral views of the chest were obtained in the upright position. FINDINGS: The lungs are clear. The heart and bones show no acute finding. IMPRESSION: No acute finding. THIS IS AN ELECTRONICALLY VERIFIED REPORT 03/20/2018 11:53 AM: MD Nancy Stover MD mwb TD: 03/20/2018 JOB #: [id number] Radiology Page 1 of 1 COPY Normal [facility] Influenza A & B, Swab/NWon 0 03-08-2018 INFLUENZA A ANTIGEN Negative Normal NEGATIVE [facility] Comment on above: Performed By: #### [id number] #### [facility] [place] [facility] [address] [place] [address] INFLUENZA B ANTIGEN Negative Normal NEGATIVE [facility] Comment on above: Performed By: #### [id number] #### [facility] [place] [facility] [address] [place] [address] Vital Signs Date Time Vital Sign Value Performing Clinician Faci lity 11-04-2024 18:37-0500 Body temperature 97 [degF] [facility] 11-04-2024 18:37-0500 Body weight 95 kg [facility] 11-04-2024 18:37-0500 Diastolic blood pressure 80 mm[Hg] [facility] 11-04-2024 18:37-0500 Heart rate 63 /min [facility] 11-04-2024 18:37-0500 Respiratory rate 16 /min [facility] 11-04-2024 18:37-0500 SaO2% (BldA) [Mass fraction] 96 % [facility] 11-04-2024 18:37-0500 Systolic blood pressure 127 mm[Hg] [facility] 07-11-2024 14:13-0400 Diastolic blood pressure 74 mm[Hg] Chelsi Bowden APRN.CNM Work Phone: [facility] 07-11-2024 14:13-0400 Systolic blood pressure 122 mm[Hg] Chelsi Bowden APRN.CNM Work Phone: [facility] 07-11-2024 13:41-0400 Body weight 93.89 kg Chelsi Bowden APRN.CNM Work Phone: [facility] 06-17-2024 13:29-0400 Body weight 95.71 kg Chelsi Bowden APRN.CNM Work Phone: [facility] 06-17-2024 13:29-0400 Diastolic blood pressure 76 mm[Hg] Chelsi Bowden MANAGER [employer].CNM Work Phone: [facility] 06-17-2024 13:29-0400 Systolic blood pressure 112 mm[Hg] Chelsi Bowden MANAGER [employer].CNM Work Phone: [facility] 06-03-2024 14:13-0400 Body weight 95.71 kg Chelsi Bowden MANAGER [employer].CNM Work Phone: [facility] 06-03-2024 14:13-0400 Diastolic blood pressure 70 mm[Hg] Chelsi Bowden MANAGER [employer].CNM Work Phone: [facility] 06-03-2024 14:13-0400 Systolic blood pressure 112 mm[Hg] Chelsi Bowden MANAGER [employer].CNM Work Phone: [facility] 04-21-2023 04:10-0400 Body height 170.18 cm [facility] 04-21-2023 04:10-0400 Body mass index (BMI) [Ratio] 35.2 kg/m2 [facility] 04-21-2023 04:10-0400 Body temperature 97.8 [degF] [facility] 04-21-2023 04:10-0400 Body weight 102.2 kg [facility] 04-21-2023 04:10-0400 Diastolic blood pressure 84 mm[Hg] [facility] 04-21-2023 04:10-0400 Heart rate 81 /min [facility] 04-21-2023 04:10-0400 Respiratory rate 16 /min [facility] 04-21-2023 04:10-0400 SaO2% (BldA) [Mass fraction] 99 % [facility] 04-21-2023 04:10-0400 Systolic blood pressure 164 mm[Hg] [facility] 04-10-2023 18:12-0400 Body mass index (BMI) [Ratio] 36.3 kg/m2 [facility] 04-10-2023 18:12-0400 Body temperature 97.8 [degF] [facility] 06-09-2023 18:12-0400 Body weight 105.23 kg [facility] 04-10-2023 18:12-0400 Diastolic blood pressure 97 mm[Hg] [facility] 04-10-2023 18:12-0400 Heart rate 65 /min [facility] 04-10-2023 18:12-0400 Respiratory rate 19 /min [facility] 04-10-2023 18:12-0400 SaO2% (BldA) [Mass fraction] 99 % [facility] 04-10-2023 18:12-0400 Systolic blood pressure 134 mm[Hg] [facility] Encounters Encounter Date Encounter Type Care Provider Facility Start: 11-04-2024 Non-patient / Non-visit Dony parmar [facility] (Acute) Start: 11-04-2024 End: 11-04-2024 ambulatory Bruce Ono Facility:[facility] Start: 07-11-2024 End: 07-11-2024 ambulatory CHELSI BOWDEN Facility:[facility] Start: 07-11-2024 End: 07-11-2024 Patient encounter procedure Chelsi Bowden APRN.CNM Work Phone: OB/Gynecology Comment on above: Irregular menstruati on (Primary Dx); Encounter for IUD insertion Start: 06-17-2024 End: 06-17-2024 ambulatory CHELSI BOWDEN Facility:[facility] Start: 06-17-2024 End: 06-17-2024 Patient encounter procedure Chelsi Bowden APRN.CNM Work Phone: OB/Gynecology Comment on above: PCOS (polycystic ova amrik syndrome) (Primary Dx); control counseling; Pelvic pain in female; CMT (cervical motion tenderness) Start: 06-10-2024 End: 06-10-2024 ambulatory CHELSI BOWDEN OB/Gynecology Start: 06-10-2024 End: 06-10-2024 Patient encounter procedure [employer] 1 Guest Service [employer] OB/Gynecology Start: 06-07-2024 Telephone encounter Chelsi gomez APRN.CNM Work Phone: OB/Gynecology Comment on above: Results Start: 06-03-2024 End: 06-03-2024 ambulatory CHELSI BOWDEN Facility:[facility] Start: 06-03-2024 End: 06-03-2024 Patient encounter procedure Chelsijonathan Bowden APRN.CNM Work Phone: OB/Gynecology Comment on above: Screening for cervic al cancer (Primary Dx); Screening for human papillomavirus (HPV); Abnormal uterine bleeding (AUB); Pelvic pain in female; CMT (cervical motion tenderness); Unprotected sexual intercourse; Family history of uterine cancer; Family history of ovarian cancer; Family history of breast cancer Start: 10-29-2023 End: 10-29-2023 ambulatory CHELSI BOWDEN Facility:[facility] Start: 10-03-2023 End: 10-03-2023 Emergency department patient visit No Primary Care Physician Facility:[facility] Start: 04-21-2023 End: 04-21-2023 Emergency department patient visit Vic Le Facility:[facility] Start: 04-21-2023 End: 04-21-2023 Emergency department patient visit [facility] Start: 04-10-2023 End: 04-10-2023 Emergency department patient visit No Primary Care Physician Facility:[facility] Start: 04-10-2023 End: 04-10-2023 Emergency department patient visit [facility] Start: 01-23-2019 End: 01-24-2019 Patient encounter procedure MANOHAR VICENTE [facility] Start: 12-03-2018 End: 12-04-2018 [id number] Start: 12-03-2018 End: 12-03-2018 Patient encounter procedure ANITA~[id number] [facility] Start: 12-03-2018 End: 12-03-2018 [facility][id number] [facility] Start: 10-22-2018 End: 10-22-2018 Patient encounter procedure BRUCE [facility] Start: 10-09-2018 End: 10-10-2018 Patient encounter procedure VIC BROCK [facility] Start: 08-03-2018 End: 08-03-2018 Patient encounter procedure BRUCE MENDEZ [facility] Start: 06-21-2018 End: 06-22-2018 Patient encounter procedure LAVERN TURCIOS [facility] Start: 05-26-2018 End: 05-27-2018 Patient encounter procedure JAZLYN HOLLEY [facility] Start: 03-20-2018 End: 03-21-2018 Patient encounter procedure BRIELLE ENGLE [facility] Start: 03-08-2018 End: 03-09-2018 Patient encounter procedure BRUCE MENDEZ [facility] Procedures Date Procedure Procedure Detail Performing Clinician Start: 07-11-2024 UA DIP,URINE HCG (POC) Chelsi Bowden APRN.CNM Work Phone: Start: 06-10-2024 Us pelvic nonobstetr ic real-time image complete Chelsi Bowden APRN.CNM Work Phone: Plan of Treatment Date Care Activity Detail Author Start: 03-14-2030 Urine microalbumin profile DTaP,Tdap,Td Vaccine (4 - Td or Tdap) [facility] Start: 06-03-2029 Screening for malign ant neoplasm of cervix Cervical Cancer Screening [facility] Start: 09-14-2024 End: 09-14-2024 Patient encounter procedure 09/14/2024 1:45 PM EST Office Visit OB/Gynecology [address] [place] [phone] Chelsi Bowden APRN.CNStepan [address] [place] [id number] F/U IUD OB/Gynecology Comment on above: F/U IUD Start: 07-11-2024 End: 07-11-2024 Patient encounter procedure 07/11/2024 1:30 PM EDT Office Visit OB/Gynecology [address] [place] [phone] Chelsi Bowden APRN.CNStepan [address] [place] [address] EMB / IUD PLACEMENT OB/Gynecology Comment on above: EMB / IUD PLACEMENT Start: 07-03-2024 Covid-19 Vaccine ( season) Covid-19 Vaccine () [facility] Start: 07-03-2024 Influenza vaccination Influenza Vacc ine (#1) [facility] Start: 06-17-2024 End: 06-17-2024 Patient encounter procedure 06/17/2024 1:30 PM EDT Office Visit OB/Gynecology [address] [place] [address] Chelsi Bowden APRN.CNM [address] [place] [address] 2 wk f/fup OB/Gynecology Comment on above: 2 wk f/fup Start: 06-10-2024 End: 06-10-2024 Manual pelvic examination 06/10/2024 3:30 PM EDT Procedure OB/Gynecology [address] [place] [address] Pelvic US- Abnormal uterine bleeding (AUB) [N93.9] OB/Gynecology Comment on above: Pelvic US- Abnormal uterine bleeding (AUB) [N93.9] Start: 06-07-2024 End: 06-07-2024 Manual pelvic examination 06/07/2024 1:00 PM EDT Procedure OB/Gynecology [address] [place] [address] Pelvic US- Abnormal uterine bleeding (AUB) [N93.9] OB/Gynecology Comment on above: Pelvic US- Abnormal uterine bleeding (AUB) [N93.9] Start: 06-03-2024 End: 09-02-2024 17-Hydroxyprogesterone [Mass/volume] in Serum or Plasma [facility] Comment on above: Expected: 06/03/2024 , Expires: 09/02/2024 Start: 06-03-2024 End: 09-02-2024 Choriogonadotropin.beta subunit [Units/volume] in Serum or Plasma [facility] Comment on above: Expected: 06/03/2024 , Expires: 09/02/2024 Start: 06-03-2024 End: 09-02-2024 DHEA-S BLD [facility] Comment on above: Expected: 06/03/2024 , Expires: 09/02/2024 Start: 06-03-2024 End: 09-02-2024 Estradiol (E2) [Mass/volume] in Serum or Plasma [facility] Comment on above: Expected: 06/03/2024 , Expires: 09/02/2024 Start: 06-03-2024 End: 09-02-2024 Fasting glucose [Mass/volume] in Serum or Plasma [facility] Comment on above: Expected: 06/03/2024 , Expires: 09/02/2024 Start: 06-03-2024 End: 09-02-2024 Ferritin [Mass/volume] in Serum or Plasma [facility] Comment on above: Expected: 06/03/2024 , Expires: 09/02/2024 Start: 06-03-2024 End: 09-02-2024 Hemoglobin A1c in Blood [facility] Comment on above: Expected: 06/03/2024 , Expires: 09/02/2024 Start: 06-03-2024 End: 09-02-2024 Iron and Iron binding capacity panel - Serum or Plasma [facility] Comment on above: Expected: 06/03/2024 , Expires: 09/02/2024 Start: 06-03-2024 End: 09-02-2024 Prolactin [Mass/volume] in Serum or Plasma [facility] Comment on above: Expected: 06/03/2024 , Expires: 09/02/2024 Start: 06-03-2024 End: 09-02-2024 TESTOSTERONE, FREE AND TOTAL [facility] Comment on above: Expected: 06/03/2024 , Expires: 09/02/2024 Start: 06-03-2024 End: 09-02-2024 Thyrotropin [Units/volume] in Serum or Plasma [facility] Work Phone: Comment on above: Expected: 06/03/2024 , Expires: 09/02/2024 Start: 06-03-2024 End: 06-03-2025 US Pelvis PELVIC US [facility] Imaging Routine Abnormal uterine bleeding (AUB) Pelvic pain in female CMT (cervical motion tenderness) Expected: 06/03/2024, Expires: 06/03/2025 [facility] Comment on above: Expected: 06/03/2024 , Expires: 06/03/2025 Start: 07-03-2023 Covid-19 Vaccine ( season) Covid-19 Vaccine () [facility] Start: 2015 Screening for malign ant neoplasm of cervix Cervical Cancer Screening [facility] Start: 2013 Hepatitis B Vaccine (1 of 3 - 19+ 3-dose series) Hepatitis B Vaccine (1 of 3 - 19+ 3-dose series) [facility] Start: 01-16-2012 Anxiety Screening Anxiety Screening [facility] Start: 01-16-2012 Depression Screening Depression Scre ening [facility] Start: 01-16-2012 Hepatitis C screening Hepatitis C Sc reening [facility] Start: 01-16-2012 HIV screening HIV Screening [facility] Start: 01-16-2000 Pneumococcal vaccination Pneumococcal Vaccine (1 of 2 - PCV) [facility] BACTERIAL VAGINOSIS NAAT BACTERIAL VAGINOSIS NAAT Lab Routine Pelvic pain in female 06/03/2024 2:51 PM EDT [facility] JOESPH/TRICHOMONAS NAAT JOESPH/TRICHOMONAS NAAT Lab Routine Pelvic pain in female 06/03/2024 2:51 PM EDT [facility] Chlamydia trachomatis+Neisseria gonorrhoeae DNA [Presence] in Unspecified specimen by MARYLU with probe detection GONORRHEA/CHLAMYDIA NAAT Lab Routine Pelvic pain in female 06/03/2024 2:51 PM EDT [facility] Endometrial bx w/wo endocervix bx w/o dilat spx ENDOMETRIAL BIOPSY Procedures Routine PCOS (polycystic ovarian syndrome) Ordered: 06/17/2024 [facility] Work Phone: Comment on above: Ordered: 06/17/2024 Endometrial bx w/wo endocervix bx w/o dilat spx ENDOMETRIAL BIOPSY Procedures Routine Irregular menstruation Ordered: 07/11/2024 [facility] Work Phone: Comment on above: Ordered: 07/11/2024 Insertion intrauteri ne device iud INSERT INTRAUTERINE DEVICE Procedures Routine control counseling Ordered: 06/17/2024 [facility] Comment on above: Ordered: 06/17/2024 Insertion intrauteri ne device iud INSERT INTRAUTERINE DEVICE Procedures Routine Encounter for IUD insertion Ordered: 07/11/2024 [facility] Comment on above: Ordered: 07/11/2024 PAP TEST PAP TEST Lab Nataliya card Screening for cervical cancer Screening for human papillomavirus (HPV) 06/03/2024 2:51 PM EDT [facility] Patient Education [facility] Work Phone: Patient referral [facility] Work Phone: SURGICAL PATHOLOGY SURGICAL PATH OLOGY Lab Routine Irregular menstruation 07/11/2024 2:10 PM EDT [facility] Payers Date Payer Category Payer Self-pay 2022 Medicaid [employer] [place] [id number] 2022-Present [phone] [address] [address] [place] [address] Medicaid [id number] 2013 Unknown [id number] Unknown [id number] Unknown [id number] Unknown [id number] Unknown [id number] Unknown [id number] Social History Date Type Detail Facility Start: 04-21-2023 Tobacco smoking stat us RIIS Unknown if ever smoked [facility] Start: 1995 Sex Assigned At Female W [facility] Start: 10-29-2023 End: 07-11-2024 Tobacco smoking status NHIS Smokes tobacco daily [facility] History of tobacco use Cigarette Smoker C [facility] Start: 10-29-2023 End: 06-03-2024 Cigarettes smoked current (pack per day) - Reported 0.5 [facility] Start: 10-29-2023 End: 07-11-2024 Tobacco use and exposure Smokeless tobacco non-user [facility] Start: 06-03-2024 End: 07-11-2024 Alcohol intake Ex-drinker (finding) [facility] Start: 06-03-2024 End: 07-11-2024 Tobacco use panel [facility] National Score (1-100), lower number is lower risk 67 [facility] Start: 1995 Sex Assigned At Not on file C [facility] Start: 11-04-2024 Sex Female (finding) Ingrid marie [facility] NEGATED: Highlighted row [facility] Clinical Notes 10-29-2023 to 07-11-2024 Patient InstructionsChelsi Bowden APRN.[facility] - 07/11/2024 1:25 PM EDTPatient InstructionsChelsi Bowden APRN.[facility] - 06/17/2024 1:26 PM EDRaiza Liu MD - 06/12/2024 7:15 PM EDT Note Date & Type Note Facility 07-11-2024 Instructions Chun Mello MA - 07/11/2024 1:30 PM EDT YOUR RECOVERY After your biopsy you may have: Vaginal bleeding (less than a normal menstrual period) Mild cramping Do NOT put anything in the vagina for 1 week after your endometrial biopsy. This includes: tampons douches and refraining from having sexual intercourse If you have any discomfort, you may take an over the counter pain medication (motrin, advil, ibuprofen, tylenol, etc). If this does not relieve your discomfort, contact the office. It is okay to wear a sanitary pad until the discharge and spotting stops. RISKS Although problems seldom occur with endometrial biopsies, there can be some complications. You may feel faint during and shortly after the procedure as well as have some bleeding after the procedure. There is also a risk of infection after the procedure. These complications are rare and can be easily treated. You should contact you doctor is you have any of the following: Heavy bleeding (more than your normal period) Bleeding with clots Severe abdominal pain Fever (more than 100.4F) Foul smelling vaginal discharge RESULTS We will have the results of your biopsy in 1-2 weeks. If you do not hear the results of your biopsy after 2 weeks, please contact the office for the results. If you have any additional questions or concerns please do not hesitate to contact the office. POST IUD INSTRUCTIONS You may have irregular bleeding during the first 3 months of use. You may have mild-severe cramping for the next 48 hours. You may use over the counter medication (Motrin, Tylenol) as needed. Your IUD must be removed or replaced based on the following table: IUD Type Removed or replaced within: Mariola 3 years Kyleena 5 years Mirena 8 years Liletta 8 years Paragard 10 years Call the office for signs/symptoms of infection such as severe cramping, fever, or unusual bleeding. Check for string placement as instructed by your doctor. If you have any additional questions, please contact the office. documented in this encounter [facility] 07-11-2024 Note HNO ID: [id number] Author: CHELSI BOWDEN APRN.CNM Service: ? Author Type: [employer] Type: Progress Notes Filed: 07/11/2024 14:07 Note Text: Cherelle is a 29 year old who presents today for an endometrial biopsy for irregular menses. test: negative UNIVERSAL PROTOCOL / SAFETY CHECKLIST Procedure to be Performed: Endometrial biopsy Sign In: A Moment of CARE was completed. Personnel directly involved with the procedure wore the appropriate PPE (Personal Protective Equipment). No special equipment needed. Patient/Surrogate Stated/Verified: PATIENT VERIFIED(optional for EMERGENT procedures): Patient name, Date of , Relevant allergies, and The intended procedure Time Out Communication: Intended patient and procedure match the source documents. Consent documented and matches the intended procedure. Relevant labs, photos, and/or imaging studies have been reviewed. Correct side/site marked and visible. Medications required for procedure verified. No fire risk assessment and interventions applicable. Implant(s) inserted: Correct implant(s) confirmed including size and side. and Expiration date(s) reviewed. Sign Out: SIGN OUT (optional for EMERGENT procedures): All specimen containers correctly labeled. All instruments, equipment, possible retained foreign bodies accounted for. Post-procedure follow-up management communicated and Plan of Care Visit completed when applicable. PROCEDURE: EXTERNAL GENITALIA: Normal in appearance without lesions VAGINA: Normal in appearance without lesions BIOPSY: Speculum placed into the vagina with excellent visualization of the cervix. Cervix cleaned with betadine. Anterior lip of cervix grasped with single toothed tenaculum. Uterus sounded to 9 cm. Pipelle inserted into the uterus without difficulty and endometrial biopsy obtained. Specimen labeled and sent to pathology. Hemostasis achieved. Procedure Summary: Patient tolerated procedure well. ASSESSMENT: abnormal uterine bleeding PLAN: Specimens labeled and sent to Pathology. Will notify patient of results in 1-2 weeks. Post-procedure instructions reviewed and written material given to the patient. Chelsi Bowden APRN.CNM Cherelle presents today for IUD insertion for dysmenorrhea. Patient's last menstrual period was 07/04/2024 (within days). GC/chlamydia: Negative on 06/03/2024 test: negative Side effects including irregular bleeding were discussed with the patient. The patient understands that it should be removed in 8 years or sooner if the patient desires a . IUD source: office provided IUD lot #: [id number] Exp date: 07/02/2026 UNIVERSAL PROTOCOL / SAFETY CHECKLIST Procedure to be Performed: IUD Insertion The cervix was prepped with betadine. The uterus sounded to 9 cm and the uterus is Midposition.. Using sterile technique, the Mirena IUD was inserted without difficulty and the string was cut to 2 cm from the external os of the cervix. Patient tolerated procedure well. PLAN: Patient was advised to observe for signs and symptoms of infection including but not limited to fever, malodorous vaginal discharge and/or pain. The patient was told to check the string monthly for accurate placement. Bleeding expectations were reviewed. Follow up after next menses for string check. Chelsi Bowden APRN.CNM [facility] 07-11-2024 History of Presen t illness Narrative Cherelle is a 29 year old who presents today for an endometrial biopsy for irregular menses. test: negative UNIVERSAL PROTOCOL / SAFETY CHECKLIST Procedure to be Performed: Endometrial biopsy Sign In: A Moment of CARE was completed. Personnel directly involved with the procedure wore the appropriate PPE (Personal Protective Equipment). No special equipment needed. Patient/Surrogate Stated/Verified: PATIENT VERIFIED(optional for EMERGENT procedures): Patient name, Date of , Relevant allergies, and The intended procedure Time Out Communication: Intended patient and procedure match the source documents. Consent documented and matches the intended procedure. Relevant labs, photos, and/or imaging studies have been reviewed. Correct side/site marked and visible. Medications required for procedure verified. No fire risk assessment and interventions applicable. Implant(s) inserted: Correct implant(s) confirmed including size and side. and Expiration date(s) reviewed. Sign Out: SIGN OUT (optional for EMERGENT procedures): All specimen containers correctly labeled. All instruments, equipment, possible retained foreign bodies accounted for. Post-procedure follow-up management communicated and Plan of Care Visit completed when applicable. PROCEDURE: EXTERNAL GENITALIA: Normal in appearance without lesions VAGINA: Normal in appearance without lesions BIOPSY: Speculum placed into the vagina with excellent visualization of the cervix. Cervix cleaned with betadine. Anterior lip of cervix grasped with single toothed tenaculum. Uterus sounded to 9 cm. Pipelle inserted into the uterus without difficulty and endometrial biopsy obtained. Specimen labeled and sent to pathology. Hemostasis achieved. Procedure Summary: Patient tolerated procedure well. ASSESSMENT: abnormal uterine bleeding PLAN: Specimens labeled and sent to Pathology. Will notify patient of results in 1-2 weeks. Post-procedure instructions reviewed and written material given to the patient. MARSHALL Weber presents today for IUD insertion for dysmenorrhea. Patient's last menstrual period was 07/04/2024 (within days). GC/chlamydia: Negative on 06/03/2024 test: negative Side effects including irregular bleeding were discussed with the patient. The patient understands that it should be removed in 8 years or sooner if the patient desires a . IUD source: office provided IUD lot #: [id number] Exp date: 07/02/2026 UNIVERSAL PROTOCOL / SAFETY CHECKLIST Procedure to be Performed: IUD Insertion The cervix was prepped with betadine. The uterus sounded to 9 cm and the uterus is Midposition.. Using sterile technique, the Mirena IUD was inserted without difficulty and the string was cut to 2 cm from the external os of the cervix. Patient tolerated procedure well. PLAN: Patient was advised to observe for signs and symptoms of infection including but not limited to fever, malodorous vaginal discharge and/or pain. The patient was told to check the string monthly for accurate placement. Bleeding expectations were reviewed. Follow up after next menses for string check. Chelsi Bowden APRN.CNM documented in this encounter [facility] 06-17-2024 Instructions Chelsi Bowden APRN.CNM - 06/17/2024 1:45 PM EDT Take Doxycyline twice a day for 7 days -Sit up after taking and take with food Then Start iron supplement and vitamin C once a day You will come in for endometrial biopsy and Mirena IUD Follow up will by in about 2 months to see how you are feeling Features Suggesting Hereditary Cancer - Early age of cancer diagnosis (e.g. breast or colon cancer < 50 years of age) - Multiple primary cancers in one individual (e.g. breast and ovarian cancer, or bilateral breast cancer) - Rare tumors (e.g. male breast cancer, paraganglioma) - Clustering of cancers that are known to be genetically related (such as breast and ovarian cancer, or colon and uterine cancer) - Patients with a known mutation in family (e.g. blood relative with a BRCA mutation) - Breast or ovarian cancer and Ashkenazi (Eastern ) Denominational ancestry *If you answered yes to any of the above, please call [facility] for Personalized Genetic Health Care ([facility]) at or or visit the website at [email or web address] Patient Information: ENDOMETRIAL BIOPSY Your doctor has recommended an endometrial biopsy to help obtain information needed to assist in making decisions for treatment of your symptoms. An endometrial biopsy is a sampling of the lining inside your uterus. This is done by inserting a thin semi flexible catheter through the opening of the uterus ( cervix ) and withdrawing a small piece of tissue. This procedure ordinarily does not require any anesthetic. The procedure usually takes less than ten minutes and is done in the office. Discomfort during the procedure can vary from patient to patient. If you have no medical contraindications, you can take 600 mg of over the counter ibuprofen pills one hour before the procedure to help decrease any discomfort that you may feel. Generally, cramping only lasts for a few minutes during the actual sampling of the lining. After the procedure you will be asked to remain lying down until you feel comfortable enough to get dressed to go home. Vaginal bleeding is usually small or scant but you may need to wear a small sanitary pad for the next day or two. Ríos Points: Please inform the doctor if you have any drug allergies or are taking any medications Please inform the doctor if you have been advised to take antibiotics prior to dental procedures. Call the our office if you should develop any heavy bleeding, pain, fever and/or foul vaginal discharge after the procedure. Your doctor will have results of this biopsy in one week. Please leave a phone number where you can be reached. Anemia Patient Information What is anemia? Anemia is a blood disorder that occurs when there is not enough hemoglobin in a person's blood. Hemoglobin is a substance in the red blood cells that makes it possible for the blood to transport (carry) oxygen through the body. When a person develops anemia, he or she is said to be anemic. There are a number of different types of anemia. Some types present only mild health problems, while others are much more severe. Each type of anemia results from one of these factors: The body cannot make enough hemoglobin The body makes hemoglobin, but the hemoglobin doesn't work right The body does not make enough red blood cells The body breaks down red blood cells too fast What are the symptoms of anemia? There are a number of symptoms that are common to all types of anemia. including: Feeling tired Difficulty breathing Dizziness Headache Feeling cold weakness pale skin What causes anemia? A lack of iron in the body is the most common cause of anemia. This type of anemia is called iron-deficiency anemia. Your body uses iron to make hemoglobin. Without the needed amount of iron, your body cannot make hemoglobin. Factors that can decrease your body's stores of iron include: Blood loss (caused within the body by ulcers, some cancers, and other conditions; and, in women, during monthly periods) An iron-poor diet An increase in the body's need for iron (in women during ) Can iron-deficiency anemia be treated? Yes. This type of anemia can be treated and cured. First, your health care provider will determine if the anemia is being caused by a poor diet or a more serious health problem. Then, you can be treated for both the anemia and its cause. Iron-deficiency anemia is treated with: Iron supplements taken by the mouth Foods high in iron What foods are high in iron? The following foods are good sources of iron: Oysters Kidney beans Beef liver Tofu Beef (louise roast, lean ground beef) [place] leg Whole wheat bread Tuna Eggs Shrimp Peanut butter [place] Brown rice Raisin bran (enriched) molasses Who is most likely to develop iron-deficiency anemia? Anyone can develop iron-deficiency anemia, although the following groups have a higher risk: Women: Blood loss during monthly periods and childbirth can lead to anemia. Children, ages 1 to 2: The body needs more iron during growth spurts. Infants: Infants may get less iron when they are weaned from breast milk or formula to solid food. Iron from solid food is not as easily taken up by the body. People over 65: People over 65 are more likely to have iron-poor diets. People on blood thinners: aspirin, Plavix, Coumadin, or heparin. If I am , should I be concerned about anemia? Yes. If you are , you are more likely to develop iron-deficiency anemia. Your unborn baby relies on you for iron and other nutrients. Many women who are take iron pills to prevent anemia. To make sure that you have enough iron for you and your baby, eat well-balanced meals and follow your health care provider's instructions for taking vitamins and adding iron to your diet. Are there different types of anemia? Yes. Iron-deficiency anemia is just one type of anemia. Other types of anemia are caused by: Diets lacking in vitamin B12 (or, the body is unable to use, or absorb B12) Diets lacking in folic acid (or, the body is unable to use folic acid) Inherited blood disorders Conditions that cause red blood cells to break down too fast (either from toxic substances or blood disorders) How can I know if I have anemia? Your health care provider can perform blood tests to tell if you have anemia. The type and number of blood tests will depend on what type of anemia is suspected. Your health care provider will determine the proper treatment, depending on the type of anemia and its cause. What are the different types of anemia? The following chart describes some of the different types of anemia, their causes, and the related blood factors: Types of Anemia Causes Factors Iron-deficiency anemia Blood loss, lack of iron in the diet Body cannot make enough red blood cells Pernicious anemia Body is unable to absorb vitamin B12 Body cannot make enough red blood cells Folic acid-deficiency anemia Lack of folic acid in the diet, body is unable to use folic acid, or caused by an illness Body cannot make enough red blood cells Hemolytic anemia Inherited or acquired diseases that causes the red blood cells to be deformed; or a result of another inherited blood disorder, harmful substances, and some drugs taken for illnesses Body breaks down red blood cells too fast Sickle cell anemia Inherited disease that is most common among Americans; red blood cells become sickle shaped Hemoglobin doesn't work right; the shape of the red blood cells causes them to clog blood vessels and break down easily References National Heart, Lung, and Blood [place]. What Is Anemia? Accessed 07/18/2014. National Heart, Lung, and Blood [place]. Your Guide to Anemia Accessed 07/18/2014. Copyright 9719-8302 [facility]. All rights reserved This information is provided by the [facility] and is not intended to replace the medical advice of your doctor or health care provider. Please consult your health care provider for advice about a specific medical condition. For additional health information, please contact the [facility] [place] [facility] Information at the [facility] or toll-free extension [phone]. If you prefer, you may visit [email or web address] or [email or web address]. This document was last reviewed on: 2014 index#[id number] documented in this encounter [facility] 06-17-2024 Note HNO ID: [id number] Author: CHELSI BOWDEN APRN.CNM Service: ? Author Type: Naval Marine Engineer Type: Progress Notes Filed: 06/22/2024 12:56 Note Text: Cherelle Cosme is a 29 year old female who presents for problem visit HPI: Visit from 06/10/24 below. Returns today for results. Visit on 06/10/24 below with complaints. 06/10/24:Having irreegular bleeding. Does not use anything for control but does not think she is . Menses started becoming abnormal around 3-4 months ago. Prior to becoming abnormal, was skipping menses and could go 2-3 months without menses. Menses now are 1.5-2 weeks apart, bleeding 5-7 days. This starts after intercourse. Flow is heavy but light colored blood. Filling a pad every 1hr to 1.5hr. States she is dizzy at times. States she previously had ultrasound that showed multiple cysts and told she had PCOS, no blood work. No hirsutism but history of oligomenorrhea. Pain during and after intercourse. Pain is every position. Will bleed after intercourse and last. No pain at other times. History of taking estrogen to induce menses, not progesterone? 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 Had a pap smear 4 years and states it was abnormal and uncertain of results. Has not received regular FLY MAKER care since daughters . Ages 11 and 4. Current partner x 6 years. Smokes 1/2 PPD. Smoking marijuana daily 1-2 times a day, helps with appetite 240lb in March 2024 now 211lb. Not actively trying to lose weight. No nausea but low appetite, bloating. Has not eaten anything today. OB History T2 L2 SAB0 IAB0 Ectopic0 Multiple0 Live Births2 [employer] History LMP: 06/01/2024 (Exact Date), Having periods Age at Menarche: Age at First : Age at Menopause: [employer] History Comments: Sexual Activity: Yes; Male Contraception: None No past medical history on file. PAST SURGICAL HISTORY No date: TONSILLECTOMY AND ADENOIDECTOMY FAMILY HISTORY Problem Relation Age of Onset Uterine Cancer Mother Breast Cancer Maternal Grandmother Cervical Cancer Maternal Grandmother Ovarian cancer Maternal great-grandmother Breast Cancer Maternal great-grandmother Social History Tobacco Use Smoking status: Every Day Packs/day: 0.50 Years: 20.00 Additional pack years: 0.00 Total pack years: 10.00 Types: Cigarettes Smokeless tobacco: Never Substance Use Topics Alcohol use: Not Currently Drug use: Yes Types: Marijuana Current Outpatient Medications Medication Sig desvenlafaxine ER (PRISTIQ) 50 mg 24 hr tablet Take 50 mg by mouth once daily. gabapentin (NEURONTIN) 100 mg capsule No current facility-administered medications for this visit. Allergies As of Date: 06/17/2024 Allergen Noted Reaction PENICILLINS 10/29/2023 Anaphylaxis AMOXICILLIN 10/29/2023 Hives Fully Assessed 06/17/2024 REVIEW OF SYSTEMS Abdomen: No bloating, early satiety, indigestion, or increased flatulence. No nausea, vomiting, diarrhea, or constipation. Bladder: No dysuria, gross hematuria, urinary frequency, urinary urgency, or incontinence. Breast: No breast lumps, nipple d/c, overlying skin changes, redness or skin retraction. Expanded ROS: N/A Allergies and current medication updated:Yes EXAM: BP 112/76 Wt 211 lb (95.7kg) LMP 06/01/2024 GENERAL: pleasant, female in no apparent distress HEENT: Normocephalic and atraumatic NECK: Supple and full range of motion DERMATOLOGY: Normal and without lesions CHEST: Normal inspiratory effort ABDOMEN: soft, non-tender, and no masses PELVIC: external genitalia normal, normal Bartholin's glands, urethra, [place]'s glands, no vulvar lesions, no cervical lesions, good vaginal support, physiologic discharge present, normal appearing perineal body and perianal region BIMANUAL: uterus normal size, shape and consistency, no adnexal masses, and non-tender NEURO: alert and oriented x3,exam grossly non-focal EXTREMITIES: normal Indication Dyspareunia, Evaluation of abnormal uterine bleeding: menorrhagia Impression Normal appearing anteverted uterus that measures 93 mm x 40 mm x 50 mm. Endometrium measures 9.6 mm Both ovaries are visualized and appear polycystic. No adnexal masses were observed. There is no free fluid visualized in the peritoneal cavity. Recommendations Follow up as clinically indicated. Latest Ref Rng 06/03/2024 WBC 3.70 - 11.00 k/uL 9.66 RBC 3.90 - 5.20 m/uL 4.81 Hemoglobin 11.5 - 15.5 g/dL 13.3 Hematocrit 36.0 - 46.0 % 39.4 MCV 80.0 - 100.0 fL 81.9 MCH 26.0 - 34.0 pg 27.7 MCHC 30.5 - 36.0 g/dL 33.8 RDW-CV 11.5 - 15.0 % 13.4 Platelet Count 150 - 400 k/uL 276 MPV 9.0 - 12.7 fL 10.4 Neut% % 61.3 Abs Neut (ANC) 1.45 - 7.50 k/uL 5.92 Lymph% % 29.7 Abs Lymph 1.00 - 4.00 k/uL 2.87 [facility]% % 6.[address] [facility] <0.87 k/uL 0.61 Eosin% % 1.6 Abs Eosin <0.46 k/uL 0.15 Baso% % 0.8 Abs Baso <0.11 k/uL 0.08 Immature Gran % % 0.3 IMMATURE GRANS (ABS) <0.10 k/uL 0.03 NRBC / (more content not included)... [facility] 06-17-2024 History of Presen t illness Narrative Cherelle Cosme is a 29 year old female who presents for problem visit HPI: Visit from 06/10/24 below. Returns today for results. Visit on 06/10/24 below with complaints. 06/10/24:Having irreegular bleeding. Does not use anything for control but does not think she is . Menses started becoming abnormal around 3-4 months ago. Prior to becoming abnormal, was skipping menses and could go 2-3 months without menses. Menses now are 1.5-2 weeks apart, bleeding 5-7 days. This starts after intercourse. Flow is heavy but light colored blood. Filling a pad every 1hr to 1.5hr. States she is dizzy at times. States she previously had ultrasound that showed multiple cysts and told she had PCOS, no blood work. No hirsutism but history of oligomenorrhea. Pain during and after intercourse. Pain is every position. Will bleed after intercourse and last. No pain at other times. History of taking estrogen to induce menses, not progesterone? 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 Had a pap smear 4 years and states it was abnormal and uncertain of results. Has not received regular FLY MAKER care since daughters . Ages 11 and 4. Current partner x 6 years. Smokes 1/2 PPD. Smoking marijuana daily 1-2 times a day, helps with appetite 240lb in March 2024 now 211lb. Not actively trying to lose weight. No nausea but low appetite, bloating. Has not eaten anything today. OB History T2 L2 SAB0 IAB0 Ectopic0 Multiple0 Live Births2 [employer] History LMP: 06/01/2024 (Exact Date), Having periods Age at Menarche: Age at First : Age at Menopause: [employer] History Comments: Sexual Activity: Yes; Male Contraception: None No past medical history on file. PAST SURGICAL HISTORY No date: TONSILLECTOMY & ADENOIDECTOMY <AGE 11 FAMILY HISTORY Problem Relation Age of Onset Uterine Cancer Mother Breast Cancer Maternal Grandmother Cervical Cancer Maternal Grandmother Ovarian cancer Maternal great-grandmother Breast Cancer Maternal great-grandmother Social History Tobacco Use Smoking status: Every Day Packs/day: 0.50 Years: 20.00 Additional pack years: 0.00 Total pack years: 10.00 Types: Cigarettes Smokeless tobacco: Never Substance Use Topics Alcohol use: Not Currently Drug use: Yes Types: Marijuana Current Outpatient Medications Medication Sig desvenlafaxine ER (PRISTIQ) 50 mg 24 hr tablet Take 50 mg by mouth once daily. gabapentin (NEURONTIN) 100 mg capsule No current facility-administered medications for this visit. Allergies As of Date: 06/17/2024 Allergen Noted Reaction PENICILLINS 10/29/2023 Anaphylaxis AMOXICILLIN 10/29/2023 Hives Fully Assessed 06/17/2024 REVIEW OF SYSTEMS Abdomen: No bloating, early satiety, indigestion, or increased flatulence. No nausea, vomiting, diarrhea, or constipation. Bladder: No dysuria, gross hematuria, urinary frequency, urinary urgency, or incontinence. Breast: No breast lumps, nipple d/c, overlying skin changes, redness or skin retraction. Expanded ROS: N/A Allergies and current medication updated:Yes EXAM: BP 112/76 Wt 211 lb (95.7kg) LMP 06/01/2024 GENERAL: pleasant, female in no apparent distress HEENT: Normocephalic and atraumatic NECK: Supple and full range of motion DERMATOLOGY: Normal and without lesions CHEST: Normal inspiratory effort ABDOMEN: soft, non-tender, and no masses PELVIC: external genitalia normal, normal Bartholin's glands, urethra, [place]'s glands, no vulvar lesions, no cervical lesions, good vaginal support, physiologic discharge present, normal appearing perineal body and perianal region BIMANUAL: uterus normal size, shape and consistency, no adnexal masses, and non-tender NEURO: alert and oriented x3,exam grossly non-focal EXTREMITIES: normal Indication Dyspareunia, Evaluation of abnormal uterine bleeding: menorrhagia Impression Normal appearing anteverted uterus that measures 93 mm x 40 mm x 50 mm. Endometrium measures 9.6 mm Both ovaries are visualized and appear polycystic. No adnexal masses were observed. There is no free fluid visualized in the peritoneal cavity. Recommendations Follow up as clinically indicated. Latest Ref Rng 06/03/2024 WBC 3.70 - 11.00 k/uL 9.66 RBC 3.90 - 5.20 m/uL 4.81 Hemoglobin 11.5 - 15.5 g/dL 13.3 Hematocrit 36.0 - 46.0 % 39.4 MCV 80.0 - 100.0 fL 81.9 MCH 26.0 - 34.0 pg 27.7 MCHC 30.5 - 36.0 g/dL 33.8 RDW-CV 11.5 - 15.0 % 13.4 Platelet Count 150 - 400 k/uL 276 MPV 9.0 - 12.7 fL 10.4 Neut% % 61.3 Abs Neut (ANC) 1.45 - 7.50 k/uL 5.92 Lymph% % 29.7 Abs Lymph 1.00 - 4.00 k/uL 2.87 [facility]% % 6.[address] [facility] <0.87 k/uL 0.61 Eosin% % 1.6 Abs Eosin <0.46 k/uL 0.15 Baso% % 0.8 Abs Baso <0.11 k/uL 0.08 Immature Gran % % 0.3 IMMATURE GRANS (ABS) <0.10 k/uL 0.03 NRBC /100 WBC 0.0 Absolute nRBC <0.01 k/uL <0.01 DTYPE Auto Case Report Gynecologic Cytology Report Case: [id number] Specimen adequacy: Satisfactory for interpretation. Cytology Interpretation Negative for intraepithelial lesion or malignancy. Clinical History Routine Exam LMP 06/01/2024 HPV Reflex Yes HPV Pap Disclaimer This result contains rich text formatting which cannot be displayed here. TEST INFORMATION: This result contains rich text formatting which cannot be displayed here. Performing Lab This result contains rich text formatting which cannot be displayed here. Joesph species group Negative for Joesph species Positive for Joesph species ! Joesph glabrata Negative for Joesph glabrata Negative for Joesph glabrata Trichomonas vaginalis Negative for Trichomonas vaginalis by amplification Negative for Trichomonas vaginalis by amplification Iron 41 - 186 ug/dL 37 (L) TIBC 232 - 386 ug/dL 313 Transferrin Saturation 15.0 - 57.0 % 11.8 (L) High Risk HPV Type 16 DNA Not detected Not detected High Risk HPV Type 18 DNA Not detected Not detected High Risk HPV Other Type DNA Not detected Not detected Neisseria gonorrhoeae (GC) Negative for Neisseria gonorrhoeae by amplification Negative for Neisseria gonorrhoeae by amplification Chlamydia trachomatis (CT) Negative for Chlamydia trachomatis by amplificaton Negative for Chlamydia trachomatis by amplification Testosterone Free <0.13 - 1.03 ng/dL 0.93 Testosterone 8 - 60 ng/dL 48 Hemoglobin A1C 4.3 - 5.6 % 5.2 Estimated Average Glucose mg/dL 103 Bacterial vaginosis Negative for bacterial vaginosis Negative for bacterial vaginosis TSH 0.270 - 4.200 mIU/L 3.380 Prolactin 4.5 - 26.8 ng/mL 11.8 DHEA-S 98.8 - 340.0 ug/dL 98.9 Hydroxyprogesterone <=206.00 ng/dL 62.65 Estradiol 17B pg/mL 63 Glucose, Fasting 74 - 99 mg/dL 96 Ferritin 14.7 - 205.1 ng/mL 42.1 hCG Quantitative, Blood <5.0 mIU/mL <0.6 ASSESSMENT AND PLAN: 1. PCOS (polycystic ovarian syndrome) - ICD9: 256.4, ICD10: E28.2 (primary diagnosis) - ENDOMETRIAL BIOPSY -Reviewed 2. control counseling - ICD9: V25.09, ICD10: Z30.09 - INSERT INTRAUTERINE DEVICE 3. Pelvic pain in female - ICD9: 625.9, ICD10: R10.2 -Discussed trying Doxycyline 100mg PO BID for 7 days to see if resolution. US benign. -Reviewed then placing IUD -Pelvic Floor physical therapy -Then if needed pelvic pain clinic 4. CMT (cervical motion tenderness) - ICD9: 625.8, ICD10: N94.9 -Discussed trying Doxycyline 100mg PO BID for 7 days to see if resolution. US benign. -Reviewed then placing IUD Chelsi Bowden APRN.CNM documented in this encounter [facility] 06-12-2024 Note Indication Dyspareunia, Evaluation of abnormal uterine bleeding: menorrhagia Impression Normal appearing anteverted uterus that measures 93 mm x 40 mm x 50 mm. Endometrium measures 9.6 mm Both ovaries are visualized and appear polycystic. No adnexal masses were observed. There is no free fluid visualized in the peritoneal cavity. Recommendations Follow up as clinically indicated. Menstrual History LMP on 05/29/2024. Day of cycle 13. Cycle: irregular cycle. Bleeding: menorrhagia. can skip periods for 2-3 months Method Transabdominal, transvaginal, 3D ultrasound examination, Color Doppler examination Uterus Uterus: Visualized Uterus position: anteverted Myometrium: normal Endometrium: normal Cervix details: cystic lesions identified suggesting superficial Nabothian cysts Uterus length 93 mm Uterus width 50 mm Uterus height 40 mm Uterus Vol 96.8 cm Endometrial thickness, total 9.6 mm Right Ovary Rt ovary: Visualized Rt ovary morphology: premenopausal polycystic Rt ovary D1 34 mm Rt ovary D2 31 mm Rt ovary D3 30 mm Rt ovary Vol 16.5 cm Left Ovary Lt ovary: Visualized Lt ovary morphology: premenopausal polycystic Lt ovary D1 44 mm Lt ovary D2 32 mm Lt ovary D3 24 mm Lt ovary Vol 17.5 cm Cul de Sac Visualized. no free fluid visualized Performed By: Cate Middleton RDMS Read By: Raiza De La Torre M.D. [facility] 06-12-2024 Note HNO ID: [id number] Author: RAIZA DE LA TORRE MD Service: ? 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 Encounter Diagnosis ICD-10-CM 1. Abnormal uterine bleeding (AUB) N93.9 2. Pelvic pain in female R10.2 3. CMT (cervical motion tenderness) N94.9 Please see report under imaging tab. Raiza De La Torre MD June 12, 2024 7:[address] 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 Encounter Diagnosis ICD-10-CM 1. Abnormal uterine bleeding (AUB) N93.9 2. Pelvic pain in female R10.2 3. CMT (cervical motion tenderness) N94.9 Please see report under imaging tab. Raiza De La Torre MD June 12, 2024 7:15 PM documented in this encounter [facility] 06-07-2024 Telephone encounter Note Patient notified. Kassidy Jeffery RN [facility] 06-07-2024 Miscellaneous Notes Patient notified. Kassidy Jeffery RN Left message for patient to call office. Kassidy Jeffery RN ----- Message from Chelsi Bowden APRN.CNM sent at 06/06/2024 5:02 PM EDT ----- Positive for yeast infection, will send diflucan 150mg PO once. documented in this encounter [facility] 06-07-2024 Telephone encounter Note Left message for patient to call office. Kassidy Jeffery RN [facility] 06-07-2024 Telephone encounter Note ----- Message from Chelsi Bowden APRN.CNM sent at 06/06/2024 5:02 PM EDT ----- Positive for yeast infection, will send diflucan 150mg PO once. [facility] 06-03-2024 Note HNO ID: [id number] Author: CHELSI BOWDEN APRN.CNM Service: ? Author Type: Naval Marine Engineer Type: Progress Notes Filed: 06/03/2024 15:06 Note Text: Simeon Cosme is a 29 year old female who presents for problem visit. HPI: Having irreegular bleeding. Does not use anything for control but does not think she is . Menses started becoming abnormal around 3-4 months ago. Prior to becoming abnormal, was skipping menses and could go 2-3 months without menses. Menses now are 1.5-2 weeks apart, bleeding 5-7 days. Flow is heavy but light colored blood. Filling a pad every 1hr to 1.5hr. States she is dizzy at times. States she previously had ultrasound that showed multiple cysts and told she had PCOS, no blood work. No hirsutism but history of oligomenorrhea. Pain during and after intercourse. Will bleed after intercourse and last. No pain at other times. 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 Had a pap smear 4 years and states it was abnormal and uncertain of results. Has not received regular FLY MAKER care since daughters . Ages 11 and 4. Current partner x 6 years. Smokes 1/2 PPD. Smoking marijuana daily 1-2 times a day, helps with appetite 240lb in March 2024 now 211lb. Not actively trying to lose weight. No nausea but low appetite, bloating. Has not eaten anything today. OB History T2 L2 SAB0 IAB0 Ectopic0 Multiple0 Live Births2 [employer] History LMP: 06/01/2024 (Exact Date), Having periods Age at Menarche: Age at First : Age at Menopause: [employer] History Comments: Sexual Activity: Yes; Male Contraception: None No past medical history on file. PAST SURGICAL HISTORY No date: TONSILLECTOMY AND ADENOIDECTOMY FAMILY HISTORY Problem Relation Age of Onset Uterine Cancer Mother Breast Cancer Maternal Grandmother Cervical Cancer Maternal Grandmother Ovarian cancer Maternal great-grandmother Breast Cancer Maternal great-grandmother Social History Tobacco Use Smoking status: Every Day Packs/day: 0.50 Years: 20.00 Additional pack years: 0.00 Total pack years: 10.00 Types: Cigarettes Smokeless tobacco: Never Substance Use Topics Alcohol use: Not Currently Drug use: Yes Types: Marijuana Current Outpatient Medications Medication Sig gabapentin (NEURONTIN) 100 mg capsule No current facility-administered medications for this visit. Allergies As of Date: 06/03/2024 Allergen Noted Reaction PENICILLINS 10/29/2023 Anaphylaxis AMOXICILLIN 10/29/2023 Hives Fully Assessed 06/03/2024 REVIEW OF SYSTEMS Abdomen: No bloating, early satiety, indigestion, or increased flatulence. No abdominal pain, nausea, vomiting, diarrhea, or constipation. Bladder: No dysuria, gross hematuria, urinary frequency, urinary urgency, or incontinence. Breast: No breast lumps, nipple d/c, overlying skin changes, redness or skin retraction. Expanded ROS: N/A Allergies and current medication updated:Yes EXAM: BP 112/70 Wt 211 lb (95.7kg) LMP 06/01/2024 GENERAL: pleasant, female in no apparent distress HEENT: Normocephalic, atraumatic, mucus membranes moist, and no lesions NECK: Supple and full range of motion DERMATOLOGY: Normal and without lesions CHEST: Normal inspiratory effort ABDOMEN: soft, non-tender, and no masses PELVIC: external genitalia normal, normal Bartholin's glands, urethra, [place]'s glands, no vulvar lesions, no cervical lesions, good vaginal support, physiologic discharge present, normal appearing perineal body and perianal region. Moderate amount of blood in vaginal vault. CMT. BIMANUAL: uterus normal size, shape and consistency, no adnexal masses, and non-tender NEURO: alert and oriented x3,exam grossly non-focal EXTREMITIES: normal ASSESSMENT AND PLAN: 1. Screening for cervical cancer - ICD9: V76.2, ICD10: Z12.4 (primary diagnosis) - Completed pelvic and breast exam - Encouraged monthly BSE - Follow up for annual exam in one year. - PAP TEST 2. Screening for human papillomavirus (HPV) - ICD9: V73.81, ICD10: Z11.51 - PAP TEST 3.Abnormal uterine bleeding (AUB) - ICD9: 626.9, ICD10: N93.9 -Reviewed testing labs for PCOS. Will follow up in 2 weeks after results and US completed. - THYROID STIMULATING HORMONE - PROLACTIN - TESTOSTERONE, FREE AND TOTAL - DHEA-S BLD - HYDROXYPROGESTERONE-17 - ESTRADIOL-17B BLD - PELVIC US WHI - HEMOGLOBIN A1C - GLUCOSE, FASTING - COMPLETE BLOOD COUNT AND DIFFERENTIAL - IRON AND TIBC - FERRITIN 4. Pelvic pain in female - ICD9: 625.9, ICD10: R10.2 - BACTERIAL VAGINOSIS NAAT - JOESPH/TRICHOMONAS NAAT - GONORRHEA/CHLAMYDIA NAAT 5. CMT (cervical motion tenderness) - ICD9: 625.8, ICD10: N94.9 -Will await results, does not appear to be PID 6. Unprotected sexual intercourse - ICD9: V69.2, ICD10: Z72.51 - HCG QUANTITATIVE 7. Family history of uterine cancer - ICD9: V16.49, ICD10: Z80.49 - CONSULT TO MEDICAL GENETICS - GENERAL 8. Family history of ovari (more content not included)... [facility] 06-03-2024 History of Presen t illness Narrative Simeon Cosme is a 29 year old female who presents for problem visit. HPI: Having irreegular bleeding. Does not use anything for control but does not think she is . Menses started becoming abnormal around 3-4 months ago. Prior to becoming abnormal, was skipping menses and could go 2-3 months without menses. Menses now are 1.5-2 weeks apart, bleeding 5-7 days. Flow is heavy but light colored blood. Filling a pad every 1hr to 1.5hr. States she is dizzy at times. States she previously had ultrasound that showed multiple cysts and told she had PCOS, no blood work. No hirsutism but history of oligomenorrhea. Pain during and after intercourse. Will bleed after intercourse and last. No pain at other times. 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 Had a pap smear 4 years and states it was abnormal and uncertain of results. Has not received regular FLY MAKER care since daughters . Ages 11 and 4. Current partner x 6 years. Smokes 1/2 PPD. Smoking marijuana daily 1-2 times a day, helps with appetite 240lb in March 2024 now 211lb. Not actively trying to lose weight. No nausea but low appetite, bloating. Has not eaten anything today. OB History T2 L2 SAB0 IAB0 Ectopic0 Multiple0 Live Births2 [employer] History LMP: 06/01/2024 (Exact Date), Having periods Age at Menarche: Age at First : Age at Menopause: [employer] History Comments: Sexual Activity: Yes; Male Contraception: None No past medical history on file. PAST SURGICAL HISTORY No date: TONSILLECTOMY & ADENOIDECTOMY <AGE 11 FAMILY HISTORY Problem Relation Age of Onset Uterine Cancer Mother Breast Cancer Maternal Grandmother Cervical Cancer Maternal Grandmother Ovarian cancer Maternal great-grandmother Breast Cancer Maternal great-grandmother Social History Tobacco Use Smoking status: Every Day Packs/day: 0.50 Years: 20.00 Additional pack years: 0.00 Total pack years: 10.00 Types: Cigarettes Smokeless tobacco: Never Substance Use Topics Alcohol use: Not Currently Drug use: Yes Types: Marijuana Current Outpatient Medications Medication Sig gabapentin (NEURONTIN) 100 mg capsule No current facility-administered medications for this visit. Allergies As of Date: 06/03/2024 Allergen Noted Reaction PENICILLINS 10/29/2023 Anaphylaxis AMOXICILLIN 10/29/2023 Hives Fully Assessed 06/03/2024 REVIEW OF SYSTEMS Abdomen: No bloating, early satiety, indigestion, or increased flatulence. No abdominal pain, nausea, vomiting, diarrhea, or constipation. Bladder: No dysuria, gross hematuria, urinary frequency, urinary urgency, or incontinence. Breast: No breast lumps, nipple d/c, overlying skin changes, redness or skin retraction. Expanded ROS: N/A Allergies and current medication updated:Yes EXAM: BP 112/70 Wt 211 lb (95.7kg) LMP 06/01/2024 GENERAL: pleasant, female in no apparent distress HEENT: Normocephalic, atraumatic, mucus membranes moist, and no lesions NECK: Supple and full range of motion DERMATOLOGY: Normal and without lesions CHEST: Normal inspiratory effort ABDOMEN: soft, non-tender, and no masses PELVIC: external genitalia normal, normal Bartholin's glands, urethra, [place]'s glands, no vulvar lesions, no cervical lesions, good vaginal support, physiologic discharge present, normal appearing perineal body and perianal region. Moderate amount of blood in vaginal vault. CMT. BIMANUAL: uterus normal size, shape and consistency, no adnexal masses, and non-tender NEURO: alert and oriented x3,exam grossly non-focal EXTREMITIES: normal ASSESSMENT AND PLAN: 1. Screening for cervical cancer - ICD9: V76.2, ICD10: Z12.4 (primary diagnosis) - Completed pelvic and breast exam - Encouraged monthly BSE - Follow up for annual exam in one year. - PAP TEST 2. Screening for human papillomavirus (HPV) - ICD9: V73.81, ICD10: Z11.51 - PAP TEST 3.Abnormal uterine bleeding (AUB) - ICD9: 626.9, ICD10: N93.9 -Reviewed testing labs for PCOS. Will follow up in 2 weeks after results and US completed. - THYROID STIMULATING HORMONE - PROLACTIN - TESTOSTERONE, FREE AND TOTAL - DHEA-S BLD - HYDROXYPROGESTERONE-17 - ESTRADIOL-17B BLD - PELVIC US WHI - HEMOGLOBIN A1C - GLUCOSE, FASTING - COMPLETE BLOOD COUNT AND DIFFERENTIAL - IRON AND TIBC - FERRITIN 4. Pelvic pain in female - ICD9: 625.9, ICD10: R10.2 - BACTERIAL VAGINOSIS NAAT - JOESPH/TRICHOMONAS NAAT - GONORRHEA/CHLAMYDIA NAAT 5. CMT (cervical motion tenderness) - ICD9: 625.8, ICD10: N94.9 -Will await results, does not appear to be PID 6. Unprotected sexual intercourse - ICD9: V69.2, ICD10: Z72.51 - HCG QUANTITATIVE 7. Family history of uterine cancer - ICD9: V16.49, ICD10: Z80.49 - CONSULT TO MEDICAL GENETICS - GENERAL 8. Family history of ovarian cancer - ICD9: V16.41, ICD10: Z80.41 - CONSULT TO MEDICAL GENETICS - GENERAL 9. Family history of breast cancer - ICD9: V16.3, ICD10: Z80.3 - CONSULT TO MEDICAL GENETICS - GENERAL Chelsi Bowden APRN.CNM documented in this encounter [facility] 10-29-2023 Note HNO ID: [id number] Author: Carli Sanchez APRN.CNP Service: ? Author Type: Nurse Practitioner Type: Progress Notes Filed: 10/29/2023 6:58 PM Note Text: Subjective HPI HPI Simeon Cosme is a 28 year old female who presents today for CC of fever, body aches, ear pain. This started today. Has tried otc medication for relief. Symptoms are worsened by nothing. Risk factors sick exposures recently/covid. Denies possibility of being . smoker. Tolerating fluids/solids, last void 4 hours ago. .Patient presents with: Flu Like Symptoms: Fever, body aches, headache since this am No past medical history on file. No past surgical history on file. ALLERGIES Penicillins and Amoxicillin MEDICATIONS gabapentin (NEURONTIN) 100 mg capsule No family history on file. Social History Tobacco Use Smoking status: Every Day Packs/day: 0.50 Years: 20.00 Additional pack years: 0.00 Total pack years: 10.00 Types: Cigarettes Smokeless tobacco: Never Review of Systems Constitutional: Positive for chills, fever and malaise/fatigue. HENT: Positive for congestion and ear pain. Negative for nosebleeds and sore throat. Respiratory: Negative for cough, shortness of breath and wheezing. Cardiovascular: Negative for chest pain. Gastrointestinal: Negative for diarrhea and vomiting. Musculoskeletal: Negative for neck pain. Objective Blood pressure 100/59, pulse 105, temperature (!) 39 ?C (102.2 ?F), resp. rate 22, weight 98.9 kg (218 lb), last menstrual period 10/28/2023, SpO2 95%. Physical Exam Constitutional: General: She is not in acute distress. Appearance: She is ill-appearing. She is not toxic-appearing or diaphoretic. HENT: Head: Normocephalic and atraumatic. Right Ear: Hearing, tympanic membrane, ear canal and external ear normal. Left Ear: Hearing, tympanic membrane, ear canal and external ear normal. Nose: Nose normal. Mouth/Throat: Pharynx: Uvula midline. No pharyngeal swelling, oropharyngeal exudate, posterior oropharyngeal erythema or uvula swelling. Eyes: General: Lids are normal. No scleral icterus. Right eye: No discharge. Left eye: No discharge. Conjunctiva/sclera: Conjunctivae normal. Pupils: Pupils are equal, round, and reactive to light. Neck: Trachea: Trachea normal. Cardiovascular: Rate and Rhythm: Normal rate and regular rhythm. Heart sounds: Normal heart sounds. Pulmonary: Effort: Pulmonary effort is normal. Breath sounds: Normal breath sounds. Musculoskeletal: Cervical back: Normal range of motion and neck supple. Lymphadenopathy: Cervical: No cervical adenopathy. Right cervical: No superficial cervical adenopathy. Left cervical: No superficial cervical adenopathy. Skin: Findings: No rash. Neurological: Mental Status: She is alert and oriented to person, place, and time. ASSESSMENT/PLAN: 1. URI, acute - ICD9: 465.9, ICD10: J06.9 - Discussed viral etiology and rationale for treatment. - Symptomatic treatment with prn analgesia - Supportive care with fluids and rest - Follow up in 3-5 days if symptoms persist or sooner if worsening of symptoms If positive for covid and wants treatment will have to return for bloodwork tomorrow. Bmp ordered. Smoker, obese risk factors - INFLUENZA AANDB MOLECULAR (POC) - COVID NAAT, UPPER RESPIRATORY, ROUTINE Carli Sanchez APRN.KEY [facility] Evaluation note No assessment inform ation available [facility] Work Phone: Evaluation note Diagnosis Screening for cervical cancer- Primary Screening for malignant neoplasm of the cervix Screening for human papillomavirus (HPV) Special screening examination for human papillomavirus (HPV) Abnormal uterine bleeding (AUB) Pelvic pain in female Unspecified symptom associated with female genital organs CMT (cervical motion tenderness) Other specified symptom associated with female genital organs Unprotected sexual intercourse Problems related to high-risk sexual behavior Family history of uterine cancer Family history of malignant neoplasm of genital organ, other Family history of ovarian cancer Family history of malignant neoplasm of ovary Family history of breast cancer Family history of malignant neoplasm of breast documented in this encounter [facility] note* Diagnosis Abnormal uterine bleeding (AUB) Pelvic pain in female Unspecified symptom associated with female genital organs CMT (cervical motion tenderness) Other specified symptom associated with female genital organs documented in this encounter [facility] note* Diagnosis PCOS (polycystic ovarian syndrome)- Primary Polycystic ovaries control counseling General counseling for initiation of other contraceptive measures Pelvic pain in female Unspecified symptom associated with female genital organs CMT (cervical motion tenderness) Other specified symptom associated with female genital organs [facility] Diagnosis Irregular menstruation- Primary Irregular menstrual cycle Encounter for IUD insertion Encounter for insertion of intrauterine contraceptive device [facility] Additional Instructions Insect in ear removed. No signs of injury.[facility] Work Phone: Reason for referral (narrative)* Outpatient Procedure (Routine) - Authorized Specialty Diagnoses / Procedures Referred By Tyra gonzales Referred To Contact [facility] Diagnoses control counseling Encounter for insertion of intrauterine contraceptive device Encounter for removal of intrauterine contraceptive device Procedures INSERT INTRAUTERINE DEVICE LEVONORGESTREL IU 52MG 5 YR INSERT INTRAUTERINE DEVICE REMOVE INTRAUTERINE DEVICE Chelsi Bowden, CLAUDIA.JENNIFER [address] [place] [address] [address] Referral ID Status Reason Start Date Expiration Date Visits Requested Visits Authorized [id number] Authorized Auto-Generat ed Referral 06/17/2024 11/01/2024 2 2 * Outpatient Procedure (Routine) - Authorized Specialty Diagnoses / Procedures Referred By Contac t Referred To Contact [facility] Diagnoses PCOS (polycystic ovarian syndrome) Procedures ENDOMETRIAL BIOPSY ENDOMETRIAL BX W/WO ENDOCERVIX BX W/O DILAT SPX Chelsi Bowden APRN.CNM [address] [place] [address] [address] Referral ID Status Reason Start Date Expiration Date Visits Requested Visits Authorized [id number] Authorized Auto-Generat ed Referral 06/17/2024 06/17/2025 1 1 [facility] for referral (narrative)* Outpatient Procedure (Routine) - New Request Specialty Diagnoses / Procedures Referred By Contac t Referred To Contact [facility] Diagnoses Encounter for IUD insertion Procedures INSERT INTRAUTERINE DEVICE INSERT INTRAUTERINE DEVICE Chelsi Bowden APRN.CNM [address] [place] [address] [address] Referral ID Status Reason Start Date Expiration Date Visits Requested Visits Authorized [id number] New Request Auto-Generat ed Referral 07/11/2024 07/11/2025 1 1 * Outpatient Procedure (Routine) - New Request Specialty Diagnoses / Procedures Referred By Contac t Referred To Contact [facility] Diagnoses Irregular menstruation Procedures ENDOMETRIAL BIOPSY ENDOMETRIAL BX W/WO ENDOCERVIX BX W/O DILAT SPX Chelsi Bowden APRN.CNM [address] [place] [address] [address] Referral ID Status Reason Start Date Expiration Date Visits Requested Visits Authorized [id number] New Request Auto-Generat ed Referral 07/11/2024 07/11/2025 1 1 [facility] for visit Narrative* Diagnostic Procedure Only (Routine) - Closed Specialty Diagnoses / Procedures Referred By Tyra gonzales Referred To Contact [facility] Diagnoses Abnormal uterine bleeding (AUB) Pelvic pain in female CMT (cervical motion tenderness) Procedures PELVIC US WHI US PELVIC NONOBSTETRIC REAL-TIME IMAGE COMPLETE Chelsi Bowden APRN.CNM [address] [place] [address] [address] Referral ID Status Reason Start Date Expiration Date V isits Requested Visits Authorized [id number] Closed Auto-Generate d Referral 06/03/2024 06/03/2025 1 1 [facility] Summary Purpose Family History No Family History Records FoundNo Family History Records FoundNo Family History Records FoundNo Family History Records FoundNo Family History Records FoundNo Family History Records Found Advance Directives Advance Directive Response Recorded Date/ Time Living Will No April 21, 2023 4:12am Power of Process Server No April 21 4:12am Advance Directive Response Recorded Date/ Time Advance Directives No November 04, 2024 6:30pm Chief Complaint and Reason for Visit Chief Complaint TOOTH/EAR BUG IN EAR Chief Complaint Admit Date mouth pain November 04, 2024 6: 32pm Reason for Referral Specialty Diagnoses / Procedures Referred By Tyra gonzales Referred To Contact Diagnoses Family history of uterine cancer Family history of ovarian cancer Family history of breast cancer Procedures CONSULT TO MEDICAL GENETICS - GENERAL OFFICE/OUTPATIENT [facility] 60 MINUTES MEDICAL GENETICS COUNSELING EACH 30 MINUTES Chelsi Bowden APRN.CNM [address] [place] [address] [facility] [address] [place] [address] Referral ID Status Reason Start Date Expiration Date Visits Requested Visits Authorized [id number] Authorized PCP Requested Referral Auto-Generate d Referral 06/03/2024 06/03/2025 1 1 Specialty Diagnoses / Procedures Referred By Contac t Referred To Contact [facility] Diagnoses Abnormal uterine bleeding (AUB) Pelvic pain in female CMT (cervical motion tenderness) Procedures PELVIC US WHI US PELVIC NONOBSTETRIC REAL-TIME IMAGE COMPLETE Chelsi Bowden APRN.CNM [address] [place] [address] [facility] [address] [place] [address] Referral ID Status Reason Start Date Expiration Date Visits Requested Visits Authorized [id number] Authorized Auto-Generat ed Referral 06/03/2024 06/03/2025 1 1 Additional Source Comments INFORMATION SOURCE (unrecogn ized section and content) DATE CREATED AUTHOR 01/29/2019 [facility] DATE CREATED AUTHOR AUTHOR'S ORGANIZ ATION 04/03/2019 [facility] DATE CREATED AUTHOR AUTHOR'S ORGANIZ ATION 07/14/2021 [facility] DATE CREATED AUTHOR AUTHOR'S ORGANIZ ATION 10/10/2023 [facility] DATE CREATED AUTHOR AUTHOR'S ORGANIZ ATION 07/24/2024 [facility] DATE CREATED AUTHOR AUTHOR'S ORGANIZ ATION 11/12/2024 [facility] Teams (unrecognized sec tion and content) Team Status: Active Member Role Status Dates No Primary Care Physician Primary Care Provider Active Team Status: Inactive Member Role Status Dates No Primary Care Physician Primary Care Provider Active Dr. Dylon Faulkner , DO Attending Provider, José Miguel parmar Active Team Status: Inactive Member Role Status Dates No Primary Care Physician Primary Care Provider Active Dr. Vic Fink , DO Emergency Provider Active Team Status: Active Member Role Status Dates [facility] Provider Attending Provider Active St art: November 04, 2024 Goals (unrecognized section and content) Goals may be documented in a n alternate sectionGoals may be documented in an alternate section Source Comments (unrecognize d section and content) In the event this informatio n is protected by the Federal Confidentiality of Alcohol and Drug Abuse Patient Records regulations: The Federal rules restrict any use of the information to criminally investigate or prosecute any alcohol or drug abuse patient.[facility] the event this information is protected by the Federal Confidentiality of Alcohol and Drug Abuse Patient Records regulations: The Federal rules restrict any use of the information to criminally investigate or prosecute any alcohol or drug abuse patient.[facility] the event this information is protected by the Federal Confidentiality of Alcohol and Drug Abuse Patient Records regulations: The Federal rules restrict any use of the information to criminally investigate or prosecute any alcohol or drug abuse patient.[facility] the event this information is protected by the Federal Confidentiality of Alcohol and Drug Abuse Patient Records regulations: The Federal rules restrict any use of the information to criminally investigate or prosecute any alcohol or drug abuse patient.[facility] the event this information is protected by the Federal Confidentiality of Alcohol and Drug Abuse Patient Records regulations: The Federal rules restrict any use of the information to criminally investigate or prosecute any alcohol or drug abuse patient.[facility] Reason for Visit (unrecogniz ed section and content) Reason Comments Menstrual Problem Multiple periods a m onth, pain and bleeding with intercourse Reason Comments Results Reason Comments Discussion Reason Onset Date Comments Insertion Of IUD 07/11/2024 Endometrial Biopsy Specialty Diagnoses / Procedures Referred By Tyra gonzales Referred To Contact [facility] Diagnoses PCOS (polycystic ovarian syndrome) Procedures ENDOMETRIAL BIOPSY ENDOMETRIAL BX W/WO ENDOCERVIX BX W/O DILAT SPX Chelsi Bowden APRN.CN [address] [place] [address] [facility] [address] [place] [address] Referral ID Status Reason Start Date Expiration Date V isits Requested Visits Authorized [id number] Closed Auto-Generate d Referral 06/17/2024 06/17/2025 1 1 FOR RECORDS PERTAINING TO PATIENTS WHO ARE OR HAVE BEEN ENROLLED IN A CHEMICAL DEPENDENCY/SUBSTANCEABUSE PROGRAM, SOME INFORMATION MAY BE OMITTED. This clinical summary was aggregated from multiple sources. Caution should be exercised in using it in the provision of clinical care. This summary normalizes information from multiple sources, and as a consequence, information in this document may materially change the coding, format and clinical context of patient data. In addition, data may be omitted in some cases. CLINICAL DECISIONS SHOULD BE BASED ON THE PRIMARY CLINICAL RECORDS. [facility] [employer] [facility]. provides no warranty or guarantee of the accuracy or completeness of information in this document.
--- OUTSIDE RECORDS SUMMARY | 2025-05-07 16:34 | XMS RPT_ITS | CCD ---
Author Organization [facility] Care Team Providers Care Spike Machine Feeder Name Role Phone BRUCE MENDEZ Primary Care [...] Unavailable ANDREA, BRUCE Primary Care Unavailable SEAGRAVES, ANITA~[id number] SEAGRAVES Attending Unavailable SEAGRAVES, ANITA~[id number] SEAGRAVES Attending Unavailable SEAGRAVES, ANITA~[id number] SEAGRAVES Referring Unavailable ANDREA, BRUCE Primary Care Unavailable SEAGRAVES, ANITA~[id number] SEAGRAVES Referring Unavailable ANDREA, BRUCE Primary Care Unavailable SEAGRAVES, ANITA~[phone] SEAGRAVES Attending Unavailable SEAGRAVES, ANITA~[phone] SEAGRAVES Attending Unavailable SEAGRAVES, ANITA~[phone] SEAGRAVES Referring Unavailable ANDREA, BRUCE Primary Care Unavailable SEAGRAVES, ANITA~[phone] SEAGRAVES Attending Unavailable SEAGRAVES, ANITA~[phone] SEAGRAVES Referring Unavailable BRUCE MENDEZ Primary Care [...] CHELSI Attending Unavailable BOWDEN, CHELSI Referring Unavailable BOWEDN, CHELSI Attending Unavailable BOWDEN, CHELSI Referring Unavailable BOWDEN, CHELSI Referring Unavailable Bruce Flower Attending Unavailable Bruce Flower Attending Unavailable ProviderDony Attending Provider Unavaila ble Allergies Allergy Classification Reported Allergen(s) Allergy Type Date of Onset Reaction(s) Facility (11 sources) Amoxicillin; Translations: [AMOXICILLIN] Drug Allergy 3 Hives [facility] Repository (11 sources) Penicillins; Translations: [PENICILLINS] Propensity to adverse reactions to drug (disorder) 3 Anaphylaxis [facility] Repository Medications Current Medications Medication Drug [...] URONTIN) 100 mg capsule 10/21/2023 Active levonorgestrel 0.197110 mg/hr intrauterine system (3 sources) Progestin, Progestin-containing [...] Test Name Value Interpretation Reference Range Facil [facility] Urgent Care Noteon Urgent Care Note [facility] [address] [address] Urgent Care Note Signed Patient: Cherelle Cosme MR#: [id number] : 1995 Acct: [id number] Age/Sex: 29 / F Loc: [facility] Date of Service: 11/04/[address]: Bruce Flower 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 .. Nurse's Note Nurse's Note: Dental pain [...] No Would like to be referred to Hotel General Manager for info?: No History of depression Questionnaire [...] or lesions noted Quality Reporting (2018) Adult ([facility] 138/12/24/68) Smoking risk assessment performed?: No Assessment [...] chlorhexidine gluconate (more content not included)... Normal [facility] CNCOon 07-21-2024 CNCO Letter Text Normal [facility] CNOVon 07-11-2024 CNOV Office Visit (OBGYWM ) CHERELLE COSEM ([id number]) 1995 F Date Time Provider Department 07/11/24 [...] IUD source: office provided IUD lot #: [id number] Exp date: 07/02/2026 UNIVERSAL PROTOCOL / SAFETY [...] any additiona (more content not included)... Normal [facility] SURGICAL PATHOLOGYon 024 CASE REPORT Normal [facility] Comment on above: Order Comment: Specimen Type: TISSUE [facility] CIMENOrdering Facility: [facility] Address: [address] [place] [address] Result Comment: Surg ical Pathology Report Case: [id number] Authorizing Provider: Chelsi Bowden APRN.CNM Collected: 07/11/2024 02:10 PM Ordering Location: OB/Gynecology Received: 07/11/2024 04:30 PM Pathologist: Drea Belle MD Specimen: Endometrium, Biopsy Performed By: #### S ####[facility] LABCLIA [id number] [place] [address] [place] CLINICAL HISTORY Abnormal menses Normal [facility] Comment on above: Order Comment: Specimen Type: [facility] Address: [address] [place] [address] Performed By: #### S ####[facility] LABCLIA [id number] [place] [address] [place] FINAL DIAGNOSIS Normal [facility] Comment on above: Order Comment: Specimen Type: TISSUE [facility]Order[facility] Address: [address] [place] [address] Result Comment: Endo metrium, biopsy: - Proliferative endometrium with breakdown. Performed By: #### S ####[facility] LABIA [id number] [place] [address] [place] FINAL PERFORMING LAB Normal [facility] Comment on above: Order Comment: Specimen Type: TISSUE [facility] Address: [address] [place] [address] Result Comment: Diag nostic interpretation performed at [facility] [address] [place] [address] CLIA# [id number] Movement Education Specialist: Isauro Grove M.D. Performed By: #### S ####[facility] LABIA [id number] [place] [address] [place] GROSS DESCRIPTION Normal [facility] Comment on above: Order Comment: Specimen Type: TISSUE SPE CIMENOrdering Facility: [facility] Address: [address] [place] [address] Result Comment: A. E ndometrium, Biopsy Received in formalin are multiple brown, soft feathery segments of tissue aggregating to 2.5 x 2.0 x 0.4 cm. Totally submitted in one cassette. Gross examination performed at [facility], [address] [place] [address] FFS 07/12/2024 12:00 AM Performed By: #### S ####[facility] LABIA [id number] [place] [address] [place] UA DIP,URINE HCG (POC)on Beta HCG ( test) Ql (U) Negative Negative [facility] Comment on above: Location:[facility], [address] [place], [address] Street Light Repairer Helper (POCT) Internal QC [facility] Location:[facility], [address], [place], [place], [id number] [place] [address] POINT OF CARE [facility] CNOVon 06-17-2024 CNOV Office Visit (OBGYWM ) CHERELLE COSME ([id number]) 1995 F Date Time Provider Department 06/17/24 [...] uncertain of results. Has not received regular STRAP SETTER care since daughters . Ages 11 and 4. Current partner x 6 years. Smokes 1/2 PPD. Smoking marijuana daily 1-2 times a day, helps with appetite 240lb in March 2024 now 211lb. Not actively trying to lose weight. No nausea but low appetite, bloating. Has not eaten anything today. OB History T2 L2 SAB0 IAB0 Ectopic0 Multiple0 Live Births2 [employer] Worker History LMP: 06/01/2024 (Exact Date), Having periods Age at Menarche: Age at First : Age at Menopause: [employer] Worker History Comments: Sexual Activity: Yes; Male Contraception: [...] external genitalia normal, normal Bartholin's glands, urethra, [place]'s glands, no vulvar lesions, no cervical lesions, [...] Lymph% % (more content not included)... Normal [facility] US Pelvison 06-12-2024 [facility] US Pelvison 06-10-2024 Radiology Study observation (narrative) [facility] CNPNon 06-07-2024 CNPN Telephone (OBGYWM) CHERELLE COSME ([id number]) 1995 F Date Time Provider Department 06/07/24 [...] Left message for patient to call office. YORDY Meier Trisha, RN 06/07/2024 12:45 PM Signed [...] Status:Closed by KASSIDY JEFFERY on 06/07/24 Normal [facility] B-HCG SerPl-aCncon HCG.beta subunit Qn m[IU]/mL Normal <5.0 [facility] Comment on above: Order Comment: Specimen Type: BLOOD SPEC IMENOrdering Facility: [facility] Address: [address] [place] [address] Result Comment: Fei perales Performed By: #### 2 1198-7 ####[facility] LABCLIA [id number] [place] [address] [place] BACTERIAL VAGINOSIS NAATon 0 06-03-2024 Lactobacillus crispatus+jerardo i+jensenii + Gardnerella vaginalis + Atopobium vaginae rRNA MARYLU+probe Ql (Vag fld) Negative Normal Negative for bacterial vaginosis [facility] Comment on above: Order Comment: Specimen Type: SWABOrderi ng Facility: [facility] Address: [address] [place] [address] Performed By: #### B VAMP, CVTV ####[facility] LABCLIA [id number] [place] [address] [place] C. trachomatis+N. gonorrhoea e DNA MARYLU+probe Ql (Unsp spec)on 06-03-2024 C. trachomatis rRNA MARYLU+probe Ql (Unsp spec) Negative Normal Negative for Chlamydia trachomatis by amplificaton [facility] Comment on above: Order Comment: Specimen Type: SWABOrderi ng Facility: [facility] Address: [address] [place] [address] Performed By: #### 3 6902-5 ####[facility] LABCLIA [id number] [place] [address] [place] N. gonorrhoeae rRNA MARYLU+probe Ql (Unsp spec) Negative Normal Negative for Neisseria gonorrhoeae by amplification [facility] Comment on above: Order Comment: Specimen Type: [facility] Facility: [facility] Address: [address] [place] [address] Performed By: #### 3 6902-5 ####[facility] LABCLIA [id number] [place] [address] [place] JOESPH/TRICHOMONAS NAATon 0 06-03-2024 C. glabrata RNA MARYUL+probe Ql (Vag fld) Negative Normal Negative for Joesph glabrata [facility] Comment on above: Order Comment: Specimen Type: [facility] Facility: [facility] Address: [address] [place] [address] Performed By: #### B VAMP, CVTV ####[facility] LABCLIA [id number] [place] [address] [place] Joesph sp DNA MARYLU+probe Ql (Vag fld) Positive Abnormal Negative for Joesph species [facility] Comment on above: Order Comment: Specimen Type: [facility] Facility: [facility] Address: [address] [place] [address] Performed By: #### B VAMP, CVTV ####[facility] LABCLIA [id number] [place] [address] [place] T. vaginalis DNA MARYLU+probe Ql (Unsp spec) Negative Normal Negative for Trichomonas vaginalis by amplification [facility] Comment on above: Order Comment: [facility] Address: [address] [place] [address] Performed By: #### B VAMP, CVTV ####[facility] LABCLIA [id number] [place] [address] [place] CBC W Auto Differential pane l (Bld)on 06-03-2024 Basophils (Bld) [#/Vol] 0.08 10*3/uL [facility] Basophils/100 WBC (Bld) 0.8 % [facility] Differential cell count method Nom (Bld) Auto [facility] Eosinophils (Bld) [#/Vol] 0.15 10*3/uL [facility] Eosinophils/100 WBC (Bld) 1.6 % [facility] Erythrocyte distribution width (RBC) [Ratio] 13.4 % 11.5 - 15.0 % [facility] Hematocrit (Bld) [Volume fraction] 39.4 % 36.0 - 46.0 % [facility] Hemoglobin (Bld) [Mass/Vol] 13.3 g/dL 11.5 - 15.5 g/dL [facility] Immature granulocytes (Bld) [#/Vol] 0.03 10*3/uL [facility] Immature granulocytes/100 WBC (Bld) 0.3 % [facility] Lymphocytes (Bld) [#/Vol] 2.87 10*3/uL [facility] Lymphocytes/100 WBC (Bld) 29.7 % [facility] MCH (RBC) [Entitic mass] 27.7 pg 26.0 - 34.0 pg [facility] MCHC (RBC) [Mass/Vol] 33.8 g/dL 30.5 - 36.0 g/dL [facility] MCV (RBC) [Entitic vol] 81.9 fL 80.0 - 100.0 fL [facility] Monocytes (Bld) [#/Vol] 0.61 10*3/uL [facility] Monocytes/100 WBC (Bld) 6.3 % [facility] Neutrophils (Bld) [#/Vol] 5.92 10*3/uL [facility] Neutrophils/100 WBC (Bld) 61.3 % [facility] Nucleated RBC (Bld) [#/Vol] [facility] Nucleated RBC/100 WBC (Bld) [Ratio] 0.0 % /100 WBC [facility] Platelet mean volume (Bld) [Entitic vol] 10.4 fL 9.0 - 12.7 fL [facility] Platelets (Bld) [#/Vol] 276 10*3/uL [facility] RBC (Bld) [#/Vol] 4.81 10*6/uL 3.90 - 5.20 m/uL [facility] WBC (Bld) [#/Vol] 9.66 10*3/uL [facility] Basophils (Bld) [#/Vol] 0.08 10*3/uL Normal <0.11 [facility] Comment on above: Order Comment: Specimen Type: BLOOD SPEC IMENOrdering Facility: [facility] Address: [address] [place] [address] Performed By: #### 5 7021-8 ####[facility] MILLWNCLIA [id number] [place] [address] [place] Basophils/100 WBC (Bld) 0.8 % Normal [facility] Comment on above: Order Comment: Specimen Type: BLOOD SPEC IMENOrdering Facility: [facility] Address: [address] [place] [address] Performed By: #### 5 7021-8 ####[facility] HOSPITALLIA [id number] [place] [address] [place] Differential cell count method Nom (Bld) Auto Normal [facility] Comment on above: Order Comment: Specimen Type: BLOOD SPEC IMENOrdering Facility: [facility] Address: [address] [place] [address] Performed By: #### 5 7021-8 ####[facility] HOSPITALLIA [id number] [place] [address] [place] Eosinophils (Bld) [#/Vol] 0.15 10*3/uL Normal <0.46 [facility] Comment on above: Order Comment: Specimen Type: BLOOD SPEC IMENOrdering Facility: [facility] Address: [address] [place] [address] Performed By: #### 5 7021-8 ####[facility] HOSPITALLIA [id number] [place] [address] [place] Eosinophils/100 WBC (Bld) 1.6 % Normal [facility] Comment on above: Order Comment: Specimen Type: BLOOD SPEC IMENOrdering Facility: [facility] Address: [address] [place] [address] Performed By: #### 5 7021-8 ####[facility] JUANITAMELINDA [id number] [place] [address] [place] Erythrocyte distribution width (RBC) [Ratio] 13.4 % Normal 11.5-15.0 [facility] Comment on above: Order Comment: Specimen Type: BLOOD SPEC IMENOrdering Facility: [facility] Address: [address] [place] [address] Performed By: #### 5 7021-8 ####[facility] HOSPITALNCPURVI [id number] [place] [address] [place] Hematocrit (Bld) [Volume fraction] 39.4 % Normal 36.0-46.0 [facility] Comment on above: Order Comment: Specimen Type: BLOOD SPEC IMENOrdering Facility: [facility] Address: [address] [place] [address] Performed By: #### 5 7021-8 ####[facility] HOSPITALMILAGROSA [id number] [place] [address] [place] Hemoglobin (Bld) [Mass/Vol] 13.3 g/dL Normal 11.5-15.5 [facility] Comment on above: Order Comment: Specimen Type: BLOOD SPEC IMENOrdering Facility: [facility] Address: [address] [place] [address] Performed By: #### 5 7021-8 ####[facility] HOSPITALNCLIA [id number] [place] [address] [place] Immature granulocytes (Bld) [#/Vol] 0.03 10*3/uL Normal <0.10 [facility] Comment on above: Order Comment: Specimen Type: BLOOD SPEC IMENOrdering Facility: [facility] Address: [address] [place] [address] Performed By: #### 5 7021-8 ####[facility] JUANITAEmersonNCLIA [id number] [place] [address] [place] Immature granulocytes/100 WBC (Bld) 0.3 % Normal [facility] Comment on above: Order Comment: Specimen Type: BLOOD SPEC IMENOrdering Facility: [facility] Address: [address] [place] [address] Performed By: #### 5 7021-8 ####[facility] KISSIMMEEGm [id number] [place] [address] [place] Lymphocytes (Bld) [#/Vol] 2.87 10*3/uL Normal 1.00-4.00 [facility] Comment on above: Order Comment: Specimen Type: BLOOD SPEC IMENOrdering Facility: [facility] Address: [address] [place] [address] Performed By: #### 5 7021-8 ####[facility] [id number] [place] [address] [place] Lymphocytes/100 WBC (Bld) 29.7 % Normal [facility] Comment on above: Order Comment: Specimen Type: BLOOD SPEC IMENOrdering Facility: [facility] Address: [address] [place] [address] Performed By: #### 5 7021-8 ####[facility] HOSPITALNCLIA [id number] [place] [address] [place] MCH (RBC) [Entitic mass] 27.7 pg Normal 26.0-34.0 [facility] Comment on above: Order Comment: Specimen Type: BLOOD SPEC IMENOrdering Facility: [facility] Address: [address] [place] [address] Performed By: #### 5 7021-8 ####[facility] HOSPITALNCLIA [id number] [place] [address] [place] MCHC (RBC) [Mass/Vol] 33.8 g/dL Normal 30.5-36.0 [facility] Comment on above: Order Comment: Specimen Type: BLOOD SPEC IMENOrdering Facility: [facility] Address: [address] [place] [address] Performed By: #### 5 7021-8 ####[facility] HOSPITALNCA [id number] [place] [address] [place] MCV (RBC) [Entitic vol] 81.9 fL Normal 80.0-100.0 [facility] Comment on above: Order Comment: Specimen Type: BLOOD SPEC IMENOrdering Facility: [facility] Address: [address] [place] [address] Performed By: #### 5 7021-8 ####[facility]ITALNCBRIGHAM [facility] [id number] [place] [address] [place] Monocytes (Bld) [#/Vol] 0.61 10*3/uL Normal <0.87 [facility] Comment on above: Order Comment: Specimen Type: BLOOD SPEC IMENOrdering Facility: [facility] Address: [address] [place] [address] Performed By: #### 5 7021-8 ####[facility] KISSIMMEEA [id number] [place] [address] [place] Monocytes/100 WBC (Bld) 6.3 % Normal [facility] Comment on above: Order Comment: Specimen Type: BLOOD SPEC IMENOrdering Facility: [facility] Address: [address] [place] [address] Performed By: #### 5 7021-8 ####[facility] KISSIMMEEA [id number] [place] [address] [place] Neutrophils (Bld) [#/Vol] 5.92 10*3/uL Normal 1.45-7.50 [facility] Comment on above: Order Comment: Specimen Type: BLOOD SPEC IMENOrdering Facility: [facility] Address: [address] [place] [address] Performed By: #### 5 7021-8 ####[facility] BRIANLIA [id number] [place] [address] [place] Neutrophils/100 WBC (Bld) 61.3 % Normal [facility] Comment on above: Order Comment: Specimen Type: BLOOD SPEC IMENOrdering Facility: [facility] Address: [address] [place] [address] Performed By: #### 5 7021-8 ####[facility] JUANITADUNBARANULIA [id number] [place] [address] [place] Nucleated RBC (Bld) [#/Vol] 10*3/uL Normal <0.01 [facility] Comment on above: Order Comment: Specimen Type: BLOOD SPEC IMENOrdering Facility: [facility] Address: [address] [place] [address] Performed By: #### 5 7021-8 ####[facility] HOSPITALANULIA [id number] [place] [address] [place] Nucleated RBC/100 WBC (Bld) [Ratio] 0.0 /100 WBC Normal [facility] Comment on above: Order Comment: Specimen Type: BLOOD SPEC IMENOrdering Facility: [facility] Address: [address] [place] [address] Performed By: #### 5 7021-8 ####[facility] HOSPITALANULIA [id number] [place] [address] [place] Platelet mean volume (Bld) [Entitic vol] 10.4 fL Normal 9.0-12.7 [facility] Comment on above: Order Comment: Specimen Type: BLOOD SPEC IMENOrdering Facility: [facility] Address: [address] [place] [address] Performed By: #### 5 7021-8 ####[facility] KISSIMMEEA [id number] [place] [address] [place] Platelets (Bld) [#/Vol] 276 10*3/uL Normal 150-400 [facility] Comment on above: Order Comment: Specimen Type: BLOOD SPEC IMENOrdering Facility: [facility] Address: [address] [place] [address] Performed By: #### 5 7021-8 ####[facility] HOSPITALNCA [id number] [place] [address] [place] RBC (Bld) [#/Vol] 4.81 10*6/uL Normal 3.90-5.20 [facility] Comment on above: Order Comment: Specimen Type: BLOOD SPEC IMENOrdering Facility: [facility] Address: [address] [place] [address] Performed By: #### 5 7021-8 ####[facility]ITALNCBRIGH[facility] [id number] [place] [address] [place] WBC (Bld) [#/Vol] 9.66 10*3/uL Normal 3.70-11.00 [facility] Comment on above: Order Comment: Specimen Type: BLOOD SPEC IMENOrdering Facility: [facility] Address: [address] [place] [address] Performed By: #### 5 7021-8 ####[facility] HOSPITALNCLIA [id number] [place] [address] [place] CNOVon 06-03-2024 CNOV Office Visit (OBGYWM ) CHERELLE COSME ([id number]) 1995 F Date Time Provider Department 06/03/24 [...] uncertain of results. Has not received regular STRAP SETTER care since daughters . Ages 10 and 4. Current partner x 6 years. Smokes 1/2 PPD. Smoking marijuana daily 1-2 times a day, helps with appetite 240lb in March 2024 now 211lb. Not actively trying to lose weight. No nausea but low appetite, bloating. Has not eaten anything today. OB History T2 L2 SAB0 IAB0 Ectopic0 Multiple0 Live Births2 [employer] Work[employer] History LMP: 06/01/2024 (Exact Date), Having periods Age at Menarche: Age at First : Age at Menopause: [employer] Work[employer] History Comments: Sexual Activity: Yes; Male Contraception: [...] external genitalia normal, normal Bartholin's glands, urethra, [place]'s glands, no vulvar lesions, no cervical lesions, [...] await result (more content not included)... Normal [facility] DHEA-S BLDon 06-03-2024 DHEA-S [Mass/Vol] 98.9 ug/dL Normal 98.8-340.0 [facility] Comment on above: Order Comment: Specimen Type: BLOOD SPEC IMENOrdering Facility: [facility] Address: [address] [place] [address] Result Comment: Refe rence ranges are age and gender specific. For additional information, reference range tables can be found in the laboratory test directory. The normal values are based on the following source: Dehydroepiandrosterone sulfate (DHEA S) [package insert V 17.0 [place]]. [facility], [place], [place]: June 2013. Performed By: #### 5 0190-8, DHEAS, 2243-4, 2842-3 ####[facility] LABCLIA [id number] [place] [address] [place] Estradiol SerPl-mCncon 06-03 E2 [Mass/Vol] 63 pg/mL Normal [facility] Comment on above: Order Comment: Specimen Type: BLOOD SPEC IMENOrdering Facility: [facility] Address: [address] [place] [address] Result Comment: This test is not suitable [...] 3243 pg/mL Second trimester : 1561 to 59047 pg/mL Third trimester : 8285 to >95221 pg/mL Post-menopausal Estradiol reference range: < 41 pg/mL Reference: 1. Estradiol - E2 (Estradiol III) [package insert V 3.0 [place]]. [facility], [place], April 2016. Performed By: #### 5 0190-8, DHEAS, 2243-4, 2842-3 ####[facility] LABCLIA [id number] [place] [address] [place] Ferritin [facility] 2023 Ferritin [Mass/Vol] 42.1 ng/mL Normal 14.7-205.1 [facility] Comment on above: Order Comment: Specimen Type: BLOOD SPEC IMENOrdering Facility: [facility] Address: [address] [place] [address] Performed By: #### 3 016-3, 2276-4 ####[facility] LABIA [id number] [place] [address] [place] Glucose p fast [facility] 06-03-2024 Glucose post fast [Mass/Vol] 96 mg/dL Normal 74-99 [facility] Comment on above: Order Comment: Specimen Type: BLOOD SPEC IMENOrdering Facility: [facility] Address: [address] [place] [address] Result Comment: Amer ican Diabetes Association guidelines state that a diabetes mellitus diagnosis is preliminarily made when the fasting plasma glucose meets or exceeds 126 mg/dL. In the absence of unequivocal hyperglycemia, results should be confirmed with repeat testing. Patients are at increased risk for diabetes mellitus (prediabetes) when the fasting glucose is 100 to 125 mg/dL. Performed By: #### 1 558-6 ####[facility] LABCLIA [id number] [place] [address] [place] HIGH RISK HUMAN PAPILLOMA FAVIO (HPV), PCR FOR DETECTION AND GENOTYPINGon 06-03-2024 HPV 16 Ag Ql (Unsp spec) Not detected Normal Not detected [facility] Comment on above: Order Comment: Specimen Type: FLUID SPEC IMENOrdering Facility: [facility] Address: [address] [place] [address] Performed By: #### L [id number], HPVHRT ####[facility] LABCLIA [id number] [place] [address] [place] HPV 18 Ag Ql (Unsp spec) Not detected Normal Not detected [facility] Comment on above: Order Comment: Specimen Type: FLUID SPEC IMENOrdering Facility: [facility] Address: [address] [place] [address] Performed By: #### L [id number], HPVHRT ####[facility] LABCLIA [id number] [place] [address] [place] HPV 31+33+35+39+45+5 1+52+56+58+59+66 +68 DNA MARYLU+probe Ql (Cvx) Not detected Normal Not detected [facility] Comment on above: Order Comment: Specimen Type: FLUID SPEC IMENOrdering Facility: [facility] Address: [address] [place] [address] Result Comment: High Risk HPV Other Type includes HPV types 31, 33, 35, 39, 45, 51, 52, 56, 58, 59, 66 and 68. Performed By: #### L [id number], HPVHRT ####[facility] LABIA [id number] [place] [address] [place] HYDROXYPROGESTERONE-17on 17-HYDROXYPROGES TERONE QUANTITATIVE BY HPLC-MS/MS, SERUM OR PLASMA 62.65 ng/dL Normal <=206.00 [facility] Comment on above: Order Comment: Specimen Type: BLOOD SPEC IMENOrdering Facility: [facility] Address: [address] [place] [address] Result Comment: INTERPRETIVE INFORMATION for 17-Hydroxyprogesterone in females: Follicular 15 to 70 ng/dL Luteal 35 to 290 ng/dL REFERENCE INTERVAL: 17-Hydroxyprogesterone Qnt, HPLC-MS/MS Access complete set of age- and/or gender-specific reference intervals for this test in the [facility] Laboratory Test Directory ([employer]). This test was developed and its performance characteristics determined by [facility]. It has not been cleared or approved by the US Food and Drug Administration. This test was performed in a CLIA certified laboratory and is intended for clinical purposes. Performed By: [place] [address] [place] [address] Movement Education Specialist: Carli Kohli MD, PhD CLIA Number: [id number] Performed By: #### H PROG ####[facility] [id number] [place] [address] HbA1c (Bld)on 06-03-2024 Average glucose Estimated from glycated hemoglobin (Bld) [Mass/Vol] 103 mg/dL Normal [facility] Comment on above: Order Comment: Specimen Type: BLOOD SPEC IMENOrdering Facility: [facility] Address: [address] [place] [address] Result Comment: eAG: (Estimated average glucose) is a calculated value from HgbA1c and is policy services representative of the average blood glucose level in the last 2-3 month period. Performed By: #### 5 5454-3 ####[facility] LABCLIA [id number] [place] [address] [place] HbA1c (Bld) [Mass fraction] 5.2 % Normal 4.3-5.6 [facility] Comment on above: Order Comment: Specimen Type: BLOOD SPEC IMENOrdering Facility: [facility] Address: [address] [place] [address] Result Comment: Amer ican Diabetes Association guidelines indicate that patients with HgbA1c in the range 5.7-6.4% are at increased risk for development of diabetes, and intervention by lifestyle modification may be beneficial. HgbA1c greater or equal to 6.5% is considered diagnostic of diabetes. Performed By: #### 5 5454-3 ####[facility] LABCLIA [id number] [place] [id number] [place] Iron and Iron binding capaci ty panelon 06-03-2024 Iron [Mass/Vol] 37 ug/dL Low 41-186 [facility] Comment on above: Order Comment: Specimen Type: BLOOD SPEC IMENOrdering Facility: [facility] Address: [address] [place] [address] Performed By: #### 5 0190-8, DHEAS, 2243-4, 2842-3 ####[facility] LABCLIA [id number] [place] [address] [place] Iron binding capacity [Mass/Vol] 313 ug/dL Normal 232-386 [facility] Comment on above: Order Comment: Specimen Type: BLOOD SPEC IMENOrdering Facility: [facility] Address: [address] [place] [address] Performed By: #### 5 0190-8, DHEAS, 2243-4, 2842-3 ####[facility] LABCLIA [id number] [place] [address] [place] Iron/TIBC [Molar ratio] 11.8 % Low 15.0-57.0 [facility] Comment on above: Order Comment: Specimen Type: BLOOD SPEC IMENOrdering Facility: [facility] Address: [address] [place] [address] Performed By: #### 5 0190-8, DHEAS, 2243-4, 2842-3 ####[facility] LABCLIA [id number] [place] [address] [place] PAP TESTon 06-03-2024 ADEQUACY Normal [facility] Comment on above: Order Comment: Specimen Type: FLUID SPEC IMENOrdering Facility: [facility] Address: [address] [place] [address] Result Comment: Sati sfactory for interpretation. Limited cellularity. Performed By: #### L [id number], HPVHRT ####[facility] LABCLIA [id number] [address] [address] [place] CASE REPORT Normal [facility] Comment on above: Order Comment: Specimen Type: FLUID SPEC IMENOrdering Facility: [facility] Address: [address] [place] [address] Result Comment: Gyne cologic Cytology Report Case: [id number] Authorizing Provider: Chelsi Bowden APRN.CNM Collected: 06/03/2024 02:51 PM Ordering Location: OB/Gynecology Received: 06/03/2024 04:47 PM First Screen: Trey, Lissette, CT, ASCP Specimen: Pap Test, ThinPrep, Cervix Performed By: #### L [id number], HPVHRT ####[facility] LABCLIA [id number] [place] [address] [place] CLINICAL HISTORY, CYTOLOGY, STRAP SETTER Routine Exam Normal [facility] Comment on above: Order Comment: Specimen Type: FLUID SPEC IMENOrdering Facility: [facility] Address: [address] [place] [address] Performed By: #### L [id number], HPVHRT ####[facility] LABCLIA [id number] [place] [address] [place] FINAL PERFORMING LAB Normal [facility] Comment on above: Order Comment: Specimen Type: FLUID SPEC IMENOrdering Facility: [facility] Address: [address] [place] [address] Result Comment: Tech nical component, jig borer screening performed at [facility], [address] [place] [address] CLIA# [id number] Diagnostic interpretation performed at [facility], [address] [place] [address] CLIA# [id number] Movement Education Specialist: Isauro Grove M.D. Performed By: #### L [id number], HPVHRT ####[facility] LABCLIA [id number] [place] [address] [place] HPV REFLEX Yes HPV Normal [facility] Comment on above: Order Comment: Specimen Type: FLUID SPEC IMENOrdering Facility: [facility] Address: [address] [place] [address] Performed By: #### L [id number], HPVHRT ####[facility] LABCLIA [id number] [place] [address] [place] INTERPRETATION, CYTOLOGY, STRAP SETTER Normal [facility] Comment on above: Order Comment: Specimen Type: FLUID SPEC IMENOrdering Facility: [facility] Address: [address] [place] [address] Result Comment: Nega tive for intraepithelial lesion or malignancy. Performed By: #### L [id number], HPVHRT ####[facility] LABCLIA [id number] [place] [address] [place] LMP 06/01/2024 Normal [facility] Comment on above: Order Comment: Specimen Type: FLUID SPEC IMENOrdering Facility: [facility] Address: [address] [place] [address] Performed By: #### L [id number], HPVHRT ####[facility] LABCLIA [id number] [place] [address] [place] PAP DISCLAIMER COMMENT The Pap Smear is a screening test for cervical cancer. False negative results occur with all screening tests, emphasizing the need for rescreening at recommended intervals, and clinical correlation. Normal [facility] Comment on above: Order Comment: Specimen Type: FLUID SPEC IMENOrdering Facility: [facility] Address: [address] [place] [address] Performed By: #### L [id number], HPVHRT ####[facility] LABCLIA [id number] [place] [address] [place] PAP HEDIS COORDINATOR COMMENT This specimen has been analyzed by the ThinPrep Imaging System, an automated imaging and review system, which assists the laboratory in evaluating cells on ThinPrep Pap tests. Following automated imaging, selected martino from every slide are reviewed by a jig borer. Normal [facility] Comment on above: Order Comment: Specimen Type: FLUID SPEC IMENOrdering Facility: [facility] Address: [address] [place] [address] Performed By: #### L QH6410, HPVHRT ####[facility] LABCLIA [id number] [place] [address] [place] Prolactin SerPl-mCncon 06-03 Prolactin [Mass/Vol] 11.8 ng/mL Normal 4.5-26.8 [facility] Comment on above: Order Comment: Specimen Type: BLOOD SPEC IMENOrdering Facility: [facility] Address: [address] [place] [address] Result Comment: Prol actin test is performed using the [facility] Electrochemiluminescence Immunoassay method. Results obtained with different methods or kits cannot be used interchangeably. Performed By: #### 5 0190-8, DHEAS, 2243-4, 2842-3 ####[facility] LABCLIA [id number] [place] [address] [place] TESTOSTERONE, FREE AND TOTAL on 06-03-2024 TESTOSTERONE, FREE, S 0.93 ng/dL Normal <0.13-1.03 [facility] Comment on above: Order Comment: Specimen Type: BLOOD SPEC IMENOrdering Facility: [facility] Address: [address] [place] [address] Result Comment: ADDITIONAL INFORMATION This test was developed and its performance characteristics determined by [facility] in a manner consistent with CLIA requirements. This test has not been cleared or approved by the U.S. Food and Drug Administration. Performed By: #### T FTEST ####[facility] LABCLIA [id number] [place] [address] TESTOSTERONE, TOTAL, S 48 ng/dL Normal 8-60 [facility] Comment on above: Order Comment: Specimen Type: BLOOD SPEC IMENOrdering Facility: [facility] Address: [address] [place] [address] Result Comment: ADDITIONAL INFORMATION Testing performed by Liquid Chromatography-Tandem Mass Spectrometry (LC-MS/MS). This test was developed and its performance characteristics determined by [facility] in a manner consistent with CLIA requirements. This test has not been cleared or approved by the U.S. Food and Drug Administration. Test Performed by: [facility] [address] [place] [address] Rubber Attacher: Mohamud Soliman Ph.D.; CLIA# [id number] Performed By: #### T FTEST ####[facility] LABCLIA [id number] [place] [address] TSH SerPl-aCncon 06-03-2024 TSH Qn 3.380 m[IU]/L Normal 0.270-4.200 [facility] Comment on above: Order Comment: Specimen Type: BLOOD SPEC IMENOrdering Facility: [facility] Address: [address] [place] [address] Result Comment: If t he patient is , TSH reference range varies by gestational period: First Trimester (weeks 9-12): 0.180-2.990 mIU/L Second Trimester: 0.110-3.980 mIU/L Third Trimester: 0.480-4.710 mIU/L Vivek Shay et al. A Practical Approach for the Verifications and Determination of Site- and Trimester-Specific Reference Intervals for Thyroid Function tests in . Thyroid, 2019:29:3:412-420. Isai Edwards, et al. 2017 Guidelines of the [place] Thyroid Association for the Diagnosis and Management of Thyroid Disease during and the . Thyroid, 2017:27:3:315-389. Performed By: #### 3 016-3, 2276-4 ####[facility] LABCLIA [id number] [facility] [id number] [place], [place] [id number] [place] CNPSarah 10-30-2023 CNPN Telephone (UCWSTR) SIMEON COSME ([id number]) 1995 F Date Time Provider Department 10/30/23 [...] Hives Date Reviewed: 10/29/2023 Reviewed by: Carli Sancehz APRN.CNP - Fully Assessed Reason for Visit: Results [95] Prescriptions as of 10/30/2023 - gabapentin (NEURONTIN) 100 mg capsule Problem List As Of Date: 10/30/2023 (None) Encounter Status:Closed by MAL HAMPTON on 10/30/23 [facility] CNOVon 10-29-2023 CNOV Office Visit (UCWSTR ) SIMEON COSME ([id number]) 1995 F Date Time Provider Department 10/29/23 [...] COVID NAAT, UPPER RESPIRATORY, ROUTINE Carli Sanchez APRN.PHYSICS FACULTY MEMBER Allergies As of Date: 10/29/2023 Noted Allergy Reaction PENICILLINS 10/29/2023 10 - Anaphylaxis AMOXICILLIN 10/29/2023 4 - Hives Date Reviewed: 10/29/2023 Reviewed by: Carli Sanchez APRN.PHYSICS FACULTY MEMBER - Fully Assessed Reason for Visit: Flu Like Symptoms [267] Cmt: Fever, body aches, headache since this am Primary Visit Diagnosis:URI, acute [J06.9] Other Visit Diagnosis:Smoker [F17.200] Order(s):INFLUENZA AANDB MOLECULAR (POC) [6896173] Order #: [id number]. #:[id number] -LAB COVID NAAT, UPPER RESPIRATORY, ROUTINE [SQCOVID] Order #: [id number]. #:[id number] BASIC METABOLIC PNL [SQBMP] Order #: [id number] FUTURE Prescriptions as of 10/29/2023 - gabapentin (NEURONTIN) 100 mg capsule Problem List As Of Date: 10/29/2023 (None) Encounter Status:Closed by CARLI SANCHEZ on 10/29/23 Normal [facility] SARS-CoV-2 RNA Resp Ql MARYLU+p robeon 10-29-2023 SARS-CoV-2 (COVID-19) RNA MARYLU+probe Ql (Resp) COVID 19 RESULT: Detected The method used is RT-PCR or an equivalent NAAT method. Reference Range (the expected result in uninfected individuals): Not detected Normal [facility] Comment on above: Performed By: #### 75865-5 ####[facility] LABCLIA [id number] [address] [facility] Elbow min 3 Viewson 10-03-20 Elbow min 3 Views [facility] Imaging Services [address] [place] [address] Elbow min 3 Views MR#: [id number] Acct: [id number] Name: CHERELLE COSME Rep #: [id number] : 1995 F 28 From: Nitin Edward PCP: Care Physician,No Primary Status: REG ER Study: Elbow min 3 Views Date of Exam: 10/03/23 Exam# [id number] Ordering Dr: Adeel Carlton [id number] INDICATION: fall EXAMINATION/TECHNIQUE: X-RAY - LEFT XR [...] CC: JODEE Carlton; No Primary Care Physician District Commercial Superintendent: Signed Normal [facility] Emergency Department Summary on 10-03-2023 Emergency Department Summary [facility] Medical Records Department [address] [place] [address] Emergency Department Summary 10/03/23 MR#: [id number] Acct: [id number] Name: CHERELLE COSME Rep #: [id number] : 1995 28 From: Titi Zaragoza DO [...] LOC. She is on any blood thinners [facility] Medical History (Updated 10/03/23 @ 15:59 by [...] Ox 97 Oxygen Delivery Method Room Air [facility] Treatment and Re-Evaluation Narrative: Patient appears generally [...] pain. Pat (more content not included)... Normal [facility] Ribs Uni Min 3V w/PA Cheston 10-03-2023 Ribs Uni Min 3V w/PA Chest [facility] Imaging Services [address] [place] [address] Ribs Uni Min 3V w/PA Chest MR#: [id number] Acct: [id number] Name: CHERELLE COSME Rep #: [id number] : 1995 F 28 From: Nitin Edward PCP: Care Physician,No Primary Status: REG ER Study: Ribs Uni Min 3V w/PA Chest Date of Exam: 10/03 Exam# [id number] Ordering Dr: Adeel Carlton [id number] INDICATION: fall EXAMINATION/TECHNIQUE: X-RAY - XR Ribs [...] CC: JODEE Carlton; No Primary Care Physician District Commercial Superintendent: Signed Normal [facility] Emergency Department Summary on 04-21-2023 Emergency Department Summary [facility] Medical Records Department [address] [place] [address] Emergency Department Summary 04/21/23 MR#: [id number] Acct: [id number] Name: CHERELLE COSME Rep #: [id number] : 1995 28 From: Vic Toribio PCP: [...] evaluation did note insect external canal. 10 [place] tip to suctioning was placed, removal fluid and insect. Residual earwax also removed. TM evaluation was intact with no signs of injury. Patient tolerated procedure well. Re-evaluation: stable Disposition discussed with patient/family/significant other: patient Case discussed with consulting clinician: N/A This note was generated with [employer] dictation software. It may contain incorrect words, spelling, and punctuation that were not noted in checking the note before signing. Discharge Plan Triage Chief Complaint: Foreign Body ED Provider: Vic Fink Dx/Rx/DC Orders Clinical Impression: Foreign body in right ea (more content not included)... Normal [facility] Emergency Department Summary on 04-10-2023 Emergency Department Summary [facility] Medical Records Department [address] [place] [address] Emergency Department Summary 04/10/23 MR#: [id number] Acct: [id number] Name: CHERELLE COSME Rep #: [id number] : 1995 28 From: Dylon Faulkner DO [...] breath, blee (more content not included)... Normal [facility] ED Provider Noteson 07-08-20 ED Provider Notes Encounter Department: [facility]: EMERGENCY CENTER ED Provider Notes by Lilly Melo MD at 07/08/2021 4:44 AM Author: REE Everettervice: Emergency MedicineAuthor Type: ED Physician Filed: 07/08/2021 4:54 AMDate of Service: 07/08/2021 4:44 AMStatus: Signed Vice President Biostatistics: Lilly Melo MD (ED Physician) CHIEF COMPLAINT [...] Friends and Family: Not on file -Attends Jainism Services: Not on file -Active Member of [...] BP123/73 Temp97.4 ?F (36.3 ?C) Pulse57 Resp16 VzK898 % Hzjadz872 lb (96.2 kg) Raymond Coma Scale Score15 BMI (Calculated)33.3 Constitutional: Well [...] (TORADOL) i (more content not included)... Normal [facility] ED Provider Noteson 04-04-20 ED Provider Notes Encounter Department: [facility]: EMERGENCY CENTER ED Provider Notes by Michael Kingsley MD at 04/04/2021 9:28 PM Author: REE Doeervice: Emergency MedicineAuthor Type: ED Physician Filed: 04/05/2021 5:15 AMDate of Service: 04/04/2021 9:28 PMStatus: Signed Vice President Biostatistics: Michael Kingsley MD (ED Physician) TRIAGE CHIEF COMPLAINT: Chief Complaint Patient presents with -Hand Injury HPI: Cherelle Cosme is a 26 y.o. female who presents with a complaint of right hand pain. 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 She has developed pain radiating from the base of her dorsal right thumb to the tip of her right thumb as well as radiating proximally to the mid forearm. 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 pain, and that it [...] Social Gatherings with Friends and Family: -Attends Jainism Services: -Active Member of Clubs or Organizations: -Attends Club or Organization Meetings: -Marital Status: Intimate Partner Violence: -Fear of Current or Ex-Partner: -Emotionally Abused: -Physically Abused: -Sexually Abused: ALLERGIES: Penicillins and Amoxicillin PHYSICAL EXAM: TRIAGE VITALS: ED Triage Vitals [04/04/212118] BP134/78 Temp97.7 ?F (36.5 ?C) Pulse73 Resp18 IsF673 % Pszrxm296 lb (96.2 kg) Raymond Coma Scale Score BMI (Calculated)33.3 Constitutional: Mild distress, Non-toxic appearance HENT: Normocephalic, Atraumatic, Bilateral external ears normal, Oropharynx moist, Nose normal (more content not included)... Normal [facility] ED Provider Noteson 03-05-20 ED Provider Notes Encounter Department: [facility]: EMERGENCY CENTER ED Provider Notes by Jimmy Sage MD at 03/05/2021 9:12 PM Author: REE Ramirezervice: -Author Type: ED Physician Filed: 03/05/2021 10:00 PMDate of Service: 03/05/2021 9:12 PMStatus: Signed Vice President Biostatistics: Jimmy Sage MD (ED Physician) CHIEF COMPLAINT [...] Social Gatherings with Friends and Family: -Attends Jainism Services: -Active Member of Clubs or Organizations: [...] BP119/87 Temp98.3 ?F (36.8 ?C) Pulse51 Resp18 KqR0809 % Ygisdg988 lb 3.2 oz (97.6 kg) Raymond Coma Scale Score15 BMI (Calculated)33.8 Constitutional: Well developed, Well nourished, no distress. HENT: Normocephalic, Atraumatic, Oropharynx moist, No oral exudates, Nose normal. Oropharynx normal with no redness no swelling no exudate. Eyes: Conjunctiva normal, No discharge. No scleral icterus. Neck: Normal range of motion, Supple. Lymphatic: No lymphadenopathy noted. [employer] (more content not included)... Normal [facility] INFLUENZA A/B BY NEARon 05-0 INFLUENZA A Negative Normal Negative [facility] Comment on above: Performed By: #### [id number] #### [facility] [address] [place] [address] [address] [place] [address] INFLUENZA A/B BY NEAR Normal [facility] Comment on above: Result Comment: The Influenza A/B molecu lar assay is based on nicking enzyme amplification reaction (NEAR) technology. Release to patient->Immediate Performed By: #### L [id number] #### [facility] [address] [place] [address] [address] [place] [address] INFLUENZA B Negative Normal Negative [facility] Comment on above: Performed By: #### [id number] #### [facility] [address] [place] [address] [place] [address] SARS-COV-2 PCR SCREENINGon 0 03-05-2021 SARS-CoV-2 (COVID-19) RNA MARYLU+probe Ql (Unsp spec) Normal [facility] Comment on above: Result Comment: SARS-CoV-2 RNA detected by the real-time RT-PCR Stacie assay. This assay was developed and its performance characteristics determined by [facility]. This test has not [...] group homes, board and care homes, homeless custodial, foster care, etc)->No ->No Release to patient->Immediate Performed By: #### L [id number] #### [address] [address] [place] [address] SARS-CoV-2 (COVID-19) RNA MARYLU+probe Ql (Unsp spec) Not detected Normal Negative [facility] Comment on above: Performed By: #### [id number] #### [address] [address] [place] [address] ED Provider Noteson 10-12-20 20 ED Provider Notes Encounter Department: [facility] ED Provider Notes by Tobin Fernandez DO at 10/12/2020 1:36 PM Author: [place] Jim, DOService: -Author Type: ED Physician Filed: 10/13/2020 9:57 AMDate of Service: 10/12/2020 1:36 PMStatus: Addendum Vice President Biostatistics: Tobin Fernandez DO (ED Physician) Related Notes: [...] presents with right axillary nodule [facility]. Patient states she has been having [...] connections Talks on phone:None Gets together:None Attends [employer]ar[employer] service:None Active member of club or organization:None [...] EXAM VITAL SIGNS: ED Triage Vitals BP112/13/19 [id number] T (more content not included)... Normal [facility] BETA STREP CULTUREon 019 BETA STREP CULTURE No beta Strep isolated. Normal [facility] Comment on above: Performed By: #### [id number] ####[facility] [address] [place] [address]#### [id number] ####[place] [address] Influenza A & B, Swab/NWon 0 01-24-2019 INFLUENZA A ANTIGEN Negative Normal NEGATIVE [facility] Comment on above: Performed By: #### [id number] ####[place] [address] INFLUENZA B ANTIGEN Negative Normal NEGATIVE [facility] Comment on above: Performed By: #### [id number] ####[place] [address] STREP-A SCREENon 01-24-2019 STREP-A SCREEN Negative Normal NEGATIVE [facility] Comment on above: Result Comment: BETA STREP CULTURE PERFO RMED Performed By: #### L [id number] ####[place] [address]#### [id number] ####[place] [address] CBCon 12-03-2018 Basophils Abs. = 0.0 Normal 0.0-0.1 [facility] Comment on above: Performed By: #### [id number], [id number], LAB 203 #### [facility] [address] [place] [address] Basophils/100 WBC (Bld) 0.2 % Normal 0.0-1.0 [facility] Comment on above: Performed By: #### [id number], DVP3952, LAB 203 #### [facility] [address] [place] [address] Eosinophils #/vol (Bld) 0.1 10*3/uL Normal 0.0-0.5 [facility] Comment on above: Performed By: #### [id number], VOK1786, LAB 2035 #### [facility] [address] [place] [address] Eosinophils #/vol (Bld) 0.5 10*3/uL Normal 0.3-5.0 [facility] Comment on above: Performed By: #### [id number], [id number], LAB 2035 #### [facility] [address] [place] [address] Erythrocyte distribution width Ratio (RBC) 13.7 % High 11.5-13.1 [facility] Comment on above: Performed By: #### [id number], PJY6124, LAB 2035 #### [facility] [address] [place] [address] Hematocrit Volume Fraction (Bld) 46.2 % Normal 33.0-51.0 [facility] Comment on above: Performed By: #### [id number], CDC9678, LAB 2035 #### [facility] [address] [place] [id number] Hemoglobin mass conc (Bld) 15.7 g/dL Normal 12.0-16.0 [facility] Comment on above: Performed By: #### [id number], DPG7402, LAB 2035 #### [facility] [address] [place] [address] Lymphocytes #/vol (Bld) 9 10*3/uL Low 24.0-44.0 [facility] Comment on above: Performed By: #### INE0928, ZFV0739, LAB 2035 #### [facility] [address] [place] [address] Lymphocytes #/vol (Bld) 1.4 10*3/uL Normal 1.1-5.0 [facility] Comment on above: Performed By: #### QFZ9403, GOG8345, LAB 2035 #### [facility] [address] [place] [address] MCH Entitic mass (RBC) 29.1 pg Normal 26.0-34.0 [facility] Comment on above: Performed By: #### [id number], [id number], LAB 2035 #### [facility] [address] [place] [address] MCHC mass conc (RBC) 34 g/dL Normal 32.0-36.0 [facility] Comment on above: Performed By: #### YAP0229, OUF5933, LAB 2035 #### [facility] [address] [place] [address] MCV Entitic volume (RBC) 85.6 fL Normal 80.0-100.0 [facility] Comment on above: Performed By: #### MRQ4073, CPK8621, LAB 2035 #### [facility] [address] [place] [address] Monocytes #/vol (Bld) 3.8 10*3/uL Normal 2.1-13.3 [facility] Comment on above: Performed By: #### OCN9293, CBU2351, LAB 2035 #### [facility] [address] [place] [address] Monocytes #/vol (Bld) 0.6 10*3/uL Normal 0.0-1.4 [facility] Comment on above: Performed By: #### [id number], OAM8571, LAB 2035 #### [facility] [address] [place] [address] Neutrophils #/vol (Bld) 86.5 10*3/uL High 35.0-66.0 [facility] Comment on above: Performed By: #### ORO1190, STQ2570, LAB 2035 #### [facility] [address] [place] [address] Neutrophils Abs. = 13.2 High 1.5-8.5 [facility] Comment on above: Performed By: #### XCO3626, NXJ1528, LAB 2035 #### [facility] [address] [place] [address] Platelet cnt = 323 Normal 150-450 [facility] Comment on above: Performed By: #### XLK4164, AJT4817, LAB 2035 #### [facility] [address] [place] [address] Platelet mean volume Entitic volume (Bld) 8.8 fL Normal 6.5-10.0 [facility] Comment on above: Performed By: #### [id number], MWR6996, LAB 2035 #### [facility] [address] [place] [address] RBC #/vol (Bld) 5.4 10*6/uL High 4.00-5.20 [facility] Comment on above: Performed By: #### EUA9124, LNP0653, LAB 2035 #### [facility] [address] [place] [address] WBC #/vol (Bld) 15.3 10*3/uL High 4.5-11.0 [facility] Comment on above: Performed By: #### PKI1728, XBG2214, LAB 2035 #### [facility] [address] [place] [address] COMPREHENSIVE METABOLIC PANE Daomn 12-03-2018 Albumin mass conc 4.9 g/dL Normal 3.2-5.0 [facility] Comment on above: Performed By: #### [id number], PQE3967, LAB 2035 #### [facility] [address] [place] [address] Albumin/Globulin mass ratio 1.1 {ratio} Normal [facility] Comment on above: Performed By: #### [id number], QIL9053, LAB 2035 #### [facility] [place] [address] ALP enzyme act/vol 73 U/L Normal 42-121 [facility] Comment on above: Performed By: #### OWU0430, XPX4274, LAB 2035 #### [facility] [address] [place] [address] ALT enzyme act/vol 13 U/L Normal 10-60 [facility] Comment on above: Performed By: #### [id number], PWN2193, LAB 2035 #### [facility] [address] [place] [address] Anion gap molar conc 11 mmol/L Normal [facility] Comment on above: Performed By: #### XPC9472, YGH5304, LAB 2035 #### [facility] [address] [place] [address] AST enzyme act/vol 24 U/L Normal 10-42 [facility] Comment on above: Performed By: #### TBF3648, RJP4964, LAB 2035 #### [facility] [address] [place] [address] B/C = 15 Normal 10-20 [facility] Comment on above: Performed By: #### HPN3930, HBF1548, LAB 2035 #### [facility] [address] [place] [address] Bilirubin.direct mass conc 0.7 mg/dL Normal 0.2-1.0 [facility] Comment on above: Performed By: #### AFR6762, BKM4364, LAB 2035 #### [facility] [address] [place] [address] Calcium mass conc 9.9 mg/dL Normal 8.5-10.5 [facility] Comment on above: Performed By: #### CFM4355, DMM7042, LAB 2035 #### [facility] [address] [place] [address] Chloride molar conc 103 mmol/L Normal 101-111 [facility] Comment on above: Performed By: #### EGF1607, OKT5602, LAB 2035 #### [facility] [address] [place] [address] CO2 molar conc 20 mmol/L Low 21-31 [facility] Comment on above: Performed By: #### VNT1693, RRU4674, LAB 2035 #### [facility] [address] [place] [address] Creatinine mass conc 1 mg/dL Normal 0.4-1.0 [facility] Comment on above: Performed By: #### [id number], GEJ6594, LAB 2035 #### [facility] [address] [place] [address] GFR/1.73 sq M.predicted MDRD vol rate/area 68 mL/min/{1.73_m2} Normal [facility] Comment on above: Result Comment: *The [...] mL/min or less Performed By: #### L IQ3757, JAX3824, OOL0480 #### [facility] [address] [place] [address] Glucose mass conc 117 mg/dL High 70-110 [facility] Comment on above: Performed By: #### NGV3359, CSD1077, LAB 2035 #### [facility] [address] [place] [address] Osmolality 270 mosm/kg Normal 266-309 [facility] Comment on above: Performed By: #### PIL0395, YQU6305, LAB 2035 #### [facility] [address] [place] [address] Potassium molar conc 4.6 mmol/L Normal 3.6-5.0 [facility] Comment on above: Result Comment: slightly hemolyzed Performed By: #### L RJ1877, NIC3445, QQN1299 #### [facility] [address] [place] [address] Protein mass conc 9.2 g/dL High 6.7-8.2 [facility] Comment on above: Performed By: #### KXZ9578, XLO1763, LAB 2035 #### [facility] [address] [place] [address] Sodium molar conc 134 mmol/L Low 135-145 [facility] Comment on above: Performed By: #### QOC7242, SSR0903, LAB 2035 #### [facility] [address] [place] [address] Urea nitrogen mass conc 15 mg/dL Normal 6-20 [facility] Comment on above: Performed By: #### UST4896, YTT6442, LAB 2035 #### [facility] [address] [place] [address] LACTIC ACIDon 12-03-2018 Lactate molar conc 1 mmol/L Normal 0.5-1.9 [facility] Comment on above: Performed By: #### ZCZ0668 ####[facility] [address] [place] [address] LIPASEon 12-03-2018 Lipase enzyme act/vol 23 U/L Normal 7-58 [facility] Comment on above: Performed By: #### REB2140, IAW7662, LAB 2035 ####[facility] [address] [place] [address] URINALYSISon 12-03-2018 BACT/HPF Many Abnormal ABSENT [facility] Comment on above: Performed By: #### [id number] #### [facility] [place] [address] #### [id number] #### [address] [address] CASTS/LPF Absent Normal ABSENT [facility] Comment on above: Performed By: #### [id number] #### [facility] [address] [place] [address] #### [id number] #### [address] [address] CRYSTALS/HPF Absent Normal ABSENT [facility] Comment on above: Performed By: #### [id number] #### [facility] [address] [place] [address] #### [id number] #### [facility] [address] [place] [address] EPITH/HPF 10 - 20 Abnormal 3-5 [facility] Comment on above: Performed By: #### [id number] #### [facility] [address] [place] [address] #### [id number] #### [facility] [address] [place] [address] MUCOUS/HPF Small Abnormal ABSENT [facility] Comment on above: Performed By: #### [id number] #### [facility] [employer] [facility] [address] [place] [address] #### [id number] #### [facility] [address] [place] [address] RBC/HPF 3 - 5 Normal 1-3 [facility] Comment on above: Performed By: #### [id number] #### [facility] [employer] [facility] [employer] [address] [place] [address] #### [id number] #### [facility] [address] [place] [address] WBC/HPF 10 - 20 Abnormal 1-3 [facility] Comment on above: Performed By: #### [id number] #### [facility] [employer] [facility] [address] [place] [address] #### [id number] #### [facility] [address] [place] [address] Bilirubin mass conc Small Abnormal NEGATIVE [facility] Comment on above: Performed By: #### [id number] #### [facility] [address] [place] [address] #### [id number] #### [facility] [address] [place] [address] BLOOD Small Abnormal NEGATIVE [facility] Comment on above: Performed By: #### [id number] #### [facility] [address] [place] [address] #### [id number] #### [facility] [address] [place] [address] Clarity Nom (U) Clear Normal CLEAR [facility] Comment on above: Performed By: #### [id number] #### [facility] [address] [place] [address] #### [id number] #### [facility] [address] [place] [address] Color Nom (U) Yellow Normal YELLOW [facility] Comment on above: Performed By: #### [id number] #### [facility] [address] [place] [address] #### [id number] #### [facility] [address] [place] [address] Glucose mass conc Negative Normal NEGATIVE [facility] Comment on above: Performed By: #### [id number] #### [facility] [employer] [facility] [employer] [address] [place] [address] #### [id number] #### [facility] [address] [place] [address] KETONE Trace Abnormal NEGATIVE [facility] Comment on above: Performed By: #### [id number] #### [facility] [address] [place] [address] #### [id number] #### [place] [address] Nitrite Ql (U) Negative Normal NEGATIVE [facility] Comment on above: Performed By: #### [id number] #### [facility] [address] [place] [address] #### [id number] #### [facility] [address] [place] [address] pH (Bld) = 5.5 Normal 5.0-9.0 [facility] Comment on above: Performed By: #### [id number] #### [facility] [address] [place] [address] #### [id number] #### [facility] [address] [place] [address] Protein mass conc (U) 30 mg/dL Abnormal NEGATIVE [facility] Comment on above: Performed By: #### [id number] #### [facility] [address] [place] [address] #### [id number] #### [facility] [address] [place] [address] SP GRAVITY >= 1.030 Normal 1.005-1.030 [facility] Comment on above: Performed By: #### [id number] #### [place] [address] #### [id number] #### [place] [address] UROBIL = 0.2 Normal 0.2-1.0 [facility] Comment on above: Performed By: #### [id number] #### [place] [address] #### [id number] #### [place] [address] WBC #/vol (Bld) Trace Abnormal NEGATIVE [facility] Comment on above: Performed By: #### [id number] #### [place] [address] #### [id number] #### [place] [address] URINE CULTUREon 12-03-2018 Bacteria identified Cx Nom (U) COLONY COUNT: 10-100K cfu/ml three or more organisms present, indicates poor specimen. Suggest repeat collection. Normal [facility] Comment on above: Performed By: #### [id number] #### [facility] [address] [place] [address] #### [id number] #### [place] [address] Influenza A & B, Swab/NWon 1 12-10-2017 INFLUENZA A ANTIGEN Negative Normal NEGATIVE [facility] Comment on above: Performed By: #### [id number] #### [facility] [address] [place] [address] INFLUENZA B ANTIGEN Negative Normal NEGATIVE [facility] Comment on above: Performed By: #### [id number] #### [facility] [address] [place] [address] HAND LT MINIMUM 3 VIEWSon Cholesterol in [...] Date/time: 06-23-2018, 02:25 PM Final Report Normal [facility] URINALYSISon 06-21-2018 BACT/HPF Few Abnormal ABSENT [facility] Comment on above: Performed By: #### [id number] #### [facility] [address] [place] [address] CASTS/LPF Absent Normal ABSENT [facility] Comment on above: Performed By: #### [id number] #### [facility] [address] [place] [address] CRYSTALS/HPF Absent Normal ABSENT [facility] Comment on above: Performed By: #### [id number] #### [facility] [address] [place] [address] EPITH/HPF 3 - 5 Normal 3-5 [facility] Comment on above: Performed By: #### [id number] #### [facility] [address] [place] [address] MUCOUS/HPF None seen Normal ABSENT [facility] Comment on above: Performed By: #### [id number] #### [facility] [address] [place] [address] RBC/HPF 50 - 75 Abnormal 1-3 [facility] Comment on above: Performed By: #### [id number] #### [facility] [address] [place] [address] WBC/HPF 3 - 5 Normal 1-3 [facility] Comment on above: Performed By: #### [id number] #### [facility] [address] [place] [address] Protein mass conc (U) 100 mg/dL Abnormal NEGATIVE [facility] Comment on above: Performed By: #### [id number] #### [facility] [address] [place] [address] UR BILIRUBIN Negative Normal NEGATIVE [facility] Comment on above: Performed By: #### [id number] #### [facility] [address] [place] [address] UR BLOOD Large Abnormal NEGATIVE [facility] Comment on above: Performed By: #### [id number] #### [facility] [address] [place] [address] UR CLARITY Cloudy Abnormal CLEAR [facility] Comment on above: Performed By: #### [id number] #### [facility] [address] [place] [address] UR COLOR Yellow Normal YELLOW [facility] Comment on above: Performed By: #### [id number] #### [facility] [address] [place] [address] UR GLUCOSE Negative Normal NEGATIVE [facility] Comment on above: Performed By: #### [id number] #### [facility] [address] [place] [address] UR KETONE Negative Normal NEGATIVE [facility] Comment on above: Performed By: #### [id number] #### [facility] [address] [place] [address] UR LEUKOCYTES Small Abnormal NEGATIVE [facility] Comment on above: Performed By: #### [id number] #### [facility] [address] [place] [address] UR NITRITE Negative Normal NEGATIVE [facility] Comment on above: Performed By: #### [id number] #### [facility] [address] [place] [address] UR PH = 7.0 Normal 5.0-9.0 [facility] Comment on above: Performed By: #### [id number] #### [facility] [address] [place] [address] UR SP GRAVITY = 1.020 Normal 1.005-30 [facility] Comment on above: Performed By: #### [id number] #### [facility] [address] [place] [address] UR UROBILINOGEN = 0.2 Normal 0.2-1.0 [facility] Comment on above: Performed By: #### [id number] #### [facility] [employer] [facility] [address] [place] [address] PREG TEST, UA QUALon 018 TEST,UR QL Negative Normal NEGATIVE [facility] Comment on above: Performed By: #### [id number] #### [facility] [address] [place] [address] URINALYSISon 05-26-2018 BACT/HPF Many Abnormal ABSENT [facility] Comment on above: Performed By: #### [id number] #### [facility] [address] [place] [address] CASTS/LPF Absent Normal ABSENT [facility] Comment on above: Performed By: #### [id number] #### [facility] [address] [place] [address] CRYSTALS/HPF Absent Normal ABSENT [facility] Comment on above: Performed By: #### [id number] #### [facility] [address] [place] [address] EPITH/HPF 5 - 10 Abnormal 3-5 [facility] Comment on above: Performed By: #### [id number] #### [facility] [address] [place] [address] MUCOUS/HPF None seen Normal ABSENT [facility] Comment on above: Performed By: #### [id number] #### [facility] [address] [place] [address] RBC/HPF Occasional Normal 1-3 [facility] Comment on above: Performed By: #### [id number] #### [facility] [address] [place] [address] WBC/HPF 3 - 5 Normal 1-3 [facility] Comment on above: Performed By: #### [id number] #### [facility] [address] [place] [address] Protein mass conc (U) 30 mg/dL Abnormal NEGATIVE [facility] Comment on above: Performed By: #### [id number] #### [facility] [address] [place] [address] UR BILIRUBIN Small Abnormal NEGATIVE [facility] Comment on above: Performed By: #### [id number] #### [facility] [address] [place] [address] UR BLOOD Small Abnormal NEGATIVE [facility] Comment on above: Performed By: #### [id number] #### [facility] [address] [place] [address] UR CLARITY Clear Normal CLEAR [facility] Comment on above: Performed By: #### [id number] #### [facility] [address] [place] [address] UR COLOR Yellow Normal YELLOW [facility] Comment on above: Performed By: #### [id number] #### [facility] [address] [place] [address] UR GLUCOSE Negative Normal NEGATIVE [facility] Comment on above: Performed By: #### [id number] #### [facility] [address] [place] [address] UR KETONE Negative Normal NEGATIVE [facility] Comment on above: Performed By: #### [id number] #### [facility] [address] [place] [address] UR LEUKOCYTES Trace Abnormal NEGATIVE [facility] Comment on above: Performed By: #### [id number] #### [facility] [address] [place] [address] UR NITRITE Negative Normal NEGATIVE [facility] Comment on above: Performed By: #### [id number] #### [facility] [address] [place] [address] UR PH = 5.5 Normal 5.0-9.0 [facility] Comment on above: Performed By: #### [id number] #### [facility] [address] [place] [address] UR SP GRAVITY = 1.025 Normal 1.005-30 [facility] Comment on above: Performed By: #### [id number] #### [facility] [address] [place] [address] UR UROBILINOGEN = 0.2 Normal 0.2-1.0 [facility] Comment on above: Performed By: #### [id number] #### [facility] [address] [place] [address] XR CHEST PA AND LATERALon XR CHEST PA AND LATERAL [facility] [address] [place] [address] Radiology PATIENT NAME: Cherelle Cosme MR#: [id number] PROCEDURE DATE: 03/20/2018 ROOM#: ORDERING PHYS: Brielle [...] Stover MD mwb TD: 03/20/2018 JOB #: [id number] Radiology Page 1 of 1 COPY Normal [facility] Influenza A & B, Swab/NWon 0 03-08-2018 INFLUENZA A ANTIGEN Negative Normal NEGATIVE [facility] Comment on above: Performed By: #### [id number] #### [facility] [address] [place] [address] INFLUENZA B ANTIGEN Negative Normal NEGATIVE [facility] Comment on above: Performed By: #### [id number] #### [facility] [address] [place] [address] Vital Signs Date Time Vital Sign Value Performing Clinician Faci lity 11-04-2024 18:37-0500 Body temperature 97 [degF] [facility] 11-04-2024 18:37-0500 Body weight 95 kg [facility] 11-04-2024 18:37-0500 Diastolic blood pressure 80 mm[Hg] [facility] 11-04-2024 18:37-0500 Heart rate 63 /min [facility] 11-04-2024 18:37-0500 Respiratory rate 16 /min [facility] 11-04-2024 18:37-0500 SaO2% (BldA) [Mass fraction] 96 % [facility] 11-04-2024 18:37-0500 Systolic blood pressure 127 mm[Hg] [facility] 07-11-2024 14:13-0400 Diastolic blood pressure 74 mm[Hg] Chelsi Bowden APRN.CNM Work Phone: [facility] 07-11-2024 14:13-0400 Systolic blood pressure 122 mm[Hg] Chelsi Bowden APRN.CNM Work Phone: [facility] 07-11-2024 13:41-0400 Body weight 93.89 kg Chelsi Bowden APRN.CNM Work Phone: [facility] 06-17-2024 13:29-0400 Body weight 95.71 kg Chelsi Bowden APRN.CNM Work Phone: [facility] 06-17-2024 13:29-0400 Diastolic blood pressure 76 mm[Hg] Chelsi Bowden KAIAKO KURA KAUPAPA MAORI.CNM Work Phone: [facility] 06-17-2024 13:29-0400 Systolic blood pressure 112 mm[Hg] Chelsi Bowden KAIAKO KURA KAUPAPA MAORI.CNM Work Phone: [facility] 06-03-2024 14:13-0400 Body weight 95.71 kg Chelsi Bowden KAIAKO KURA KAUPAPA MAORI.CNM Work Phone: [facility] 06-03-2024 14:13-0400 Diastolic blood pressure 70 mm[Hg] Chelsi Bowden KAIAKO KURA KAUPAPA MAORI.CNM Work Phone: [facility] 06-03-2024 14:13-0400 Systolic blood pressure 112 mm[Hg] Chelsi Bowden KAIAKO KURA KAUPAPA MAORI.CNM Work Phone: [facility] 04-21-2023 04:10-0400 Body height 170.18 cm [facility] 04-21-2023 04:10-0400 Body mass index (BMI) [Ratio] 35.2 kg/m2 [facility] 04-21-2023 04:10-0400 Body temperature 97.8 [degF] [facility] 04-21-2023 04:10-0400 Body weight 102.2 kg [facility] 04-21-2023 04:10-0400 Diastolic blood pressure 84 mm[Hg] [facility] 04-21-2023 04:10-0400 Heart rate 81 /min [facility] 04-21-2023 04:10-0400 Respiratory rate 16 /min [facility] 04-21-2023 04:10-0400 SaO2% (BldA) [Mass fraction] 99 % [facility] 04-21-2023 04:10-0400 Systolic blood pressure 164 mm[Hg] [facility] 04-10-2023 18:12-0400 Body mass index (BMI) [Ratio] 36.3 kg/m2 [facility] 04-10-2023 18:12-0400 Body temperature 97.8 [degF] [facility] 06-09-2023 18:12-0400 Body weight 105.23 kg [facility] 04-10-2023 18:12-0400 Diastolic blood pressure 97 mm[Hg] [facility] 04-10-2023 18:12-0400 Heart rate 65 /min [facility] 04-10-2023 18:12-0400 Respiratory rate 19 /min [facility] 04-10-2023 18:12-0400 SaO2% (BldA) [Mass fraction] 99 % [facility] 04-10-2023 18:12-0400 Systolic blood pressure 134 mm[Hg] [facility] Encounters Encounter Date Encounter Type Care Provider Facility Start: 11-04-2024 Non-patient / Non-visit Dony parmar [facility] (Acute) Start: 11-04-2024 End: 11-04-2024 ambulatory [place] Facility:[facility] Start: 07-11-2024 End: 07-11-2024 ambulatory CHELSI BOWDEN Facility:[facility] Start: 07-11-2024 End: 07-11-2024 Patient encounter procedure Chelsi Bowden APRN.CNM Work Phone: OB/Gynecology Comment on above: Irregular menstruati on (Primary Dx); Encounter for IUD insertion Start: 06-17-2024 End: 06-17-2024 ambulatory CHELSI BOWDEN Facility:[facility] Start: 06-17-2024 End: 06-17-2024 Patient encounter procedure Chelsi Bowden APRN.CNM Work Phone: OB/Gynecology Comment on above: PCOS (polycystic ova amrik syndrome) (Primary Dx); control counseling; Pelvic pain in female; CMT (cervical motion tenderness) Start: 06-10-2024 End: 06-10-2024 ambulatory CHELSI BOWDEN OB/Gynecology Start: 06-10-2024 End: 06-10-2024 Patient encounter procedure Whi [employer] 1 [employer] OB/Gynecology Start: 06-07-2024 Telephone encounter Chelsi gomez APRN.CNM Work Phone: OB/Gynecology Comment on above: Results Start: 06-03-2024 End: 06-03-2024 ambulatory CHELSI BOWDEN Facility:[facility] Start: 06-03-2024 End: 06-03-2024 Patient encounter procedure [...] Start: 10-29-2023 End: 10-29-2023 ambulatory CHELSI BOWDEN Facility:[facility] Start: 10-03-2023 End: 10-03-2023 Emergency department patient visit No Primary Care Physician Facility:[facility] Start: 04-21-2023 End: 04-21-2023 Emergency department patient visit Vic Le Facility:[facility] Start: 04-21-2023 End: 04-21-2023 Emergency department patient visit [facility] Start: 04-10-2023 End: 04-10-2023 Emergency department patient visit No Primary Care Physician Facility:[facility] Start: 04-10-2023 End: 04-10-2023 Emergency department patient visit [facility] Start: 01-23-2019 End: 01-24-2019 Patient encounter procedure MANOHAR VICENTE [facility] Start: 12-03-2018 End: 12-04-2018 [id number] Start: 12-03-2018 End: 12-03-2018 Patient encounter procedure ANITA~[id number] NIVIA [facility] Start: 12-03-2018 End: 12-03-2018 [facility][id number] [facility] Start: 10-22-2018 End: 10-22-2018 Patient encounter procedure BRUCE [facility] Start: 10-09-2018 End: 10-10-2018 Patient encounter procedure VIC BROCK [facility] Start: 08-03-2018 End: 08-03-2018 Patient encounter procedure BRUCE MENDEZ [facility] Start: 06-21-2018 End: 06-22-2018 Patient encounter procedure LAVERN TURCIOS [facility] Start: 05-26-2018 End: 05-27-2018 Patient encounter procedure JAZLYN HOLLEY [facility] Start: 03-20-2018 End: 03-21-2018 Patient encounter procedure BRIELLE ENGLE [facility] Start: 03-08-2018 End: 03-09-2018 Patient encounter procedure BRUCE MENDEZ [facility] Procedures Date Procedure Procedure Detail Performing Clinician Start: 07-11-2024 UA DIP,URINE HCG (POC) Chelsi Bowden APRN.CNM Work Phone: Start: 06-10-2024 Us pelvic nonobstetr ic real-time image complete Chelsi Bowden APRN.CNM Work Phone: Plan of Treatment Date Care Activity Detail Author Start: 03-14-2030 Urine microalbumin profile DTaP,Tdap,Td Vaccine (4 - Td or Tdap) [facility] Start: 06-03-2029 Screening for malign ant neoplasm of cervix Cervical Cancer Screening [facility] Start: 09-14-2024 End: 09-14-2024 Patient encounter procedure 09/14/2024 1:45 PM EST Office Visit OB/Gynecology [address] [place] [place] [id number] Chelsi Bowden APRN.CNStepan [address] [place] [id number] F/U IUD OB/Gynecology Comment on above: F/U IUD Start: 07-11-2024 End: 07-11-2024 Patient encounter procedure 07/11/2024 1:30 PM EDT Office Visit OB/Gynecology [address] [place] [id number] Chelsi Bowden APRN.CNStepan [address] [place] [address] EMB / IUD PLACEMENT OB/Gynecology Comment on above: EMB / IUD PLACEMENT Start: 07-03-2024 Covid-19 Vaccine ( season) Covid-19 Vaccine () [facility] Start: 07-03-2024 Influenza vaccination Influenza Vacc ine (#1) [facility] Start: 06-17-2024 End: 06-17-2024 Patient encounter procedure 06/17/2024 1:30 PM EDT Office Visit OB/Gynecology [address] [place] [address] Chelsi Bowden APRN.CNM [address] [place] [address] 2 wk f/fup OB/Gynecology Comment on above: 2 wk f/fup Start: 06-10-2024 End: 06-10-2024 Manual pelvic examination 06/10/2024 3:30 PM EDT Procedure OB/Gynecology [address] [place] [address] Pelvic US- Abnormal uterine bleeding (AUB) [N93.9] OB/Gynecology Comment on above: Pelvic US- Abnormal uterine bleeding (AUB) [N93.9] Start: 06-07-2024 End: 06-07-2024 Manual pelvic examination 06/07/2024 1:00 PM EDT Procedure OB/Gynecology [address] [place] [address] Pelvic US- Abnormal uterine bleeding (AUB) [N93.9] OB/Gynecology Comment on above: Pelvic US- Abnormal uterine bleeding (AUB) [N93.9] Start: 06-03-2024 End: 09-02-2024 17-Hydroxyprogesterone [Mass/volume] in Serum or Plasma [facility] Comment on above: Expected: 06/03/2024 , Expires: 09/02/2024 Start: 06-03-2024 End: 09-02-2024 Choriogonadotropin.beta subunit [Units/volume] in Serum or Plasma [facility] Comment on above: Expected: 06/03/2024 , Expires: 09/02/2024 Start: 06-03-2024 End: 09-02-2024 DHEA-S BLD [facility] Comment on above: Expected: 06/03/2024 , Expires: 09/02/2024 Start: 06-03-2024 End: 09-02-2024 Estradiol (E2) [Mass/volume] in Serum or Plasma [facility] Comment on above: Expected: 06/03/2024 , Expires: 09/02/2024 Start: 06-03-2024 End: 09-02-2024 Fasting glucose [Mass/volume] in Serum or Plasma [facility] Comment on above: Expected: 06/03/2024 , Expires: 09/02/2024 Start: 06-03-2024 End: 09-02-2024 Ferritin [Mass/volume] in Serum or Plasma [facility] Comment on above: Expected: 06/03/2024 , Expires: 09/02/2024 Start: 06-03-2024 End: 09-02-2024 Hemoglobin A1c in Blood [facility] Comment on above: Expected: 06/03/2024 , Expires: 09/02/2024 Start: 06-03-2024 End: 09-02-2024 Iron and Iron binding capacity panel - Serum or Plasma [facility] Comment on above: Expected: 06/03/2024 , Expires: 09/02/2024 Start: 06-03-2024 End: 09-02-2024 Prolactin [Mass/volume] in Serum or Plasma [facility] Comment on above: Expected: 06/03/2024 , Expires: 09/02/2024 Start: 06-03-2024 End: 09-02-2024 TESTOSTERONE, FREE AND TOTAL [facility] Comment on above: Expected: 06/03/2024 , Expires: 09/02/2024 Start: 06-03-2024 End: 09-02-2024 Thyrotropin [Units/volume] in Serum or Plasma [facility] Work Phone: Comment on above: Expected: 06/03/2024 , Expires: 09/02/2024 Start: 06-03-2024 End: 06-03-2025 US Pelvis PELVIC US [facility] Anc Imaging Routine Abnormal uterine bleeding (AUB) Pelvic pain in female CMT (cervical motion tenderness) Expected: 06/03/2024, Expires: 06/03/2025 [facility] Comment on above: Expected: 06/03/2024 , Expires: 06/03/2025 Start: 07-03-2023 Covid-19 Vaccine ( season) Covid-19 Vaccine () [facility] Start: 2015 Screening for malign ant neoplasm of cervix Cervical Cancer Screening [facility] Start: 2013 Hepatitis B Vaccine (1 of 3 - 19+ 3-dose series) Hepatitis B Vaccine (1 of 3 - 19+ 3-dose series) [facility] Start: 01-16-2012 Anxiety Screening Anxiety Screening [facility] Start: 01-16-2012 Depression Screening Depression Scre ening [facility] Start: 01-16-2012 Hepatitis C screening Hepatitis C Sc reening [facility] Start: 01-16-2012 HIV screening HIV Screening [facility] Start: 01-16-2000 Pneumococcal vaccination Pneumococcal Vaccine (1 of 2 - PCV) [facility] BACTERIAL VAGINOSIS NAAT BACTERIAL VAGINOSIS NAAT Lab Routine Pelvic pain in female 06/03/2024 2:51 PM EDT [facility] JOESPH/TRICHOMONAS NAAT JOESPH/TRICHOMONAS NAAT Lab Routine Pelvic pain in female 06/03/2024 2:51 PM EDT [facility] Chlamydia trachomatis+Neisseria gonorrhoeae DNA [Presence] in Unspecified specimen by MARYLU with probe detection GONORRHEA/CHLAMYDIA NAAT Lab Routine Pelvic pain in female 06/03/2024 2:51 PM EDT [facility] Endometrial bx w/wo endocervix bx w/o dilat spx ENDOMETRIAL BIOPSY Procedures Routine PCOS (polycystic ovarian syndrome) Ordered: 06/17/2024 [facility] Work Phone: Comment on above: Ordered: 06/17/2024 Endometrial bx w/wo endocervix bx w/o dilat spx ENDOMETRIAL BIOPSY Procedures Routine Irregular menstruation Ordered: 07/11/2024 [facility] Work Phone: Comment on above: Ordered: 07/11/2024 Insertion intrauteri ne device iud INSERT INTRAUTERINE DEVICE Procedures Routine control counseling Ordered: 06/17/2024 [facility] Comment on above: Ordered: 06/17/2024 Insertion intrauteri ne device iud INSERT INTRAUTERINE DEVICE Procedures Routine Encounter for IUD insertion Ordered: 07/11/2024 [facility] Comment on above: Ordered: 07/11/2024 PAP TEST PAP TEST Lab Nataliya card Screening for cervical cancer Screening for human papillomavirus (HPV) 06/03/2024 2:51 PM EDT [facility] Patient Education [facility] Work Phone: Patient referral [facility] Work Phone: SURGICAL PATHOLOGY SURGICAL PATH OLOGY Lab Routine Irregular menstruation 07/11/2024 2:10 PM EDT [facility] Payers Date Payer Category Payer Self-pay 2022 Medicaid [employer] [place] [id number] 2022-Present [phone] [address] [address] [place] [address] Medicaid [id number] 2013 Unknown [id number] Unknown [id number] Unknown [id number] Unknown [id number] Unknown [id number] Unknown [id number] Social History Date Type Detail Facility Start: 04-21-2023 Tobacco smoking stat us WAIS Unknown if ever smoked [facility] Start: 1995 Sex Assigned At Female [facility] Start: 10-29-2023 End: 07-11-2024 Tobacco smoking status NHIS Smokes tobacco daily [facility] History of tobacco use Cigarette Smoker C [facility] Start: 10-29-2023 End: 06-03-2024 Cigarettes smoked current (pack per day) - Reported 0.5 [facility] Start: 10-29-2023 End: 07-11-2024 Tobacco use and exposure Smokeless tobacco non-user [facility] Start: 06-03-2024 End: 07-11-2024 Alcohol intake Ex-drinker (finding) [facility] Start: 06-03-2024 End: 07-11-2024 Tobacco use panel [facility] National Score (1-100), lower number is lower risk 67 [facility] Start: 1995 Sex Assigned At Not on file C [facility] Start: 11-04-2024 Sex Female (finding) Ingrid marie [facility] NEGATED: Highlighted row [facility] Clinical Notes 10-29-2023 to 07-11-2024 Patient InstructionsChelsi Bowden APRN.[facility] - 07/11/2024 1:25 PM EDTPatient InstructionsChelsi Bowden APRN.[facility] - 06/17/2024 1:26 PM EDRaiza Liu MD [...] contact the office. documented in this encounter [facility] 07-11-2024 Note HNO ID: [id number] Author: CHESLI BOWDEN APRN.CNM Service: ? 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 Chelsi Bowden APRN.CNM [facility] 07-11-2024 History of Presen t illness [...] IUD source: office provided IUD lot #: [id number] Exp date: 07/02/2026 UNIVERSAL PROTOCOL / SAFETY [...] Chelsi Bowden APRN.CNM documented in this encounter [facility] 06-17-2024 Instructions Chelsi Bowden APRN.CNM - 06/17/2024 [...] or ovarian cancer and Ashkenazi (Eastern ) Oriental Orthodox ancestry *If you answered yes to any of the above, please call [facility] ([facility]) at or or visit the website at [email or web address] Patient Information: ENDOMETRIAL BIOPSY Your doctor [...] Tofu Beef (louise roast, lean ground beef) [place] leg Whole wheat bread Tuna Eggs Shrimp [...] easily References National Heart, Lung, and Blood [place]. What Is Anemia? Accessed 07/18/2014. National Heart, Lung, and Blood [place]. Your Guide to Anemia Accessed 07/18/2014. Copyright 4531-1071 The [facility]. All rights reserved This information is provided by the [facility] and is not intended to replace the medical advice of your doctor or health care provider. Please consult your health care provider for advice about a specific medical condition. For additional health information, please contact the Center for [employer] Health Information at the [facility] or toll-free extension [phone]. If you prefer, you may visit [email or web address] or [email or web address]. This document was last reviewed on: 2014 index#[id number] documented in this encounter [facility] 06-17-2024 Note HNO ID: [id number] Author: CHELSI BOWDEN APRN.CNM Service: ? Author Type: Adventure Challenge Instructor Type: Progress Notes Filed: 06/22/2024 12:56 Note [...] uncertain of results. Has not received regular STRAP SETTER care since daughters . Ages 11 and 4. Current partner x 6 years. Smokes 1/2 PPD. Smoking marijuana daily 1-2 times a day, helps with appetite 240lb in March 2024 now 211lb. Not actively trying to lose weight. No nausea but low appetite, bloating. Has not eaten anything today. OB History T2 L2 SAB0 IAB0 Ectopic0 Multiple0 Live Births2 [employer]ision [employer]ing Worker History LMP: 06/01/2024 (Exact Date), Having periods Age at Menarche: Age at First : Age at Menopause: [employer] Worker History Comments: Sexual Activity: Yes; Male Contraception: [...] external genitalia normal, normal Bartholin's glands, urethra, [place]'s glands, no vulvar lesions, no cervical lesions, [...] Abs Lymph 1.00 - 4.00 k/uL 2.87 [place]% % 6.3 Abs [place] <0.87 k/uL 0.61 Eosin% % 1.6 Abs Eosin <0.46 k/uL 0.15 Baso% % 0.8 Abs Baso <0.11 k/uL 0.08 Immature Gran % % 0.3 IMMATURE GRANS (ABS) <0.10 k/uL 0.03 NRBC / (more content not included)... [facility] 06-17-2024 History of Presen t illness [...] uncertain of results. Has not received regular STRAP SETTER care since daughters . Ages 11 and 4. Current partner x 6 years. Smokes 1/2 PPD. Smoking marijuana daily 1-2 times a day, helps with appetite 240lb in March 2024 now 211lb. Not actively trying to lose weight. No nausea but low appetite, bloating. Has not eaten anything today. OB History T2 L2 SAB0 IAB0 Ectopic0 Multiple0 Live Births2 [employer] Worker History LMP: 06/01/2024 (Exact Date), Having periods Age at Menarche: Age at First : Age at Menopause: [employer] Worker History Comments: Sexual Activity: Yes; Male Contraception: [...] external genitalia normal, normal Bartholin's glands, urethra, [place]'s glands, no vulvar lesions, no cervical lesions, [...] Abs Lymph 1.00 - 4.00 k/uL 2.87 [place]% % 6.3 Abs [place] <0.87 k/uL 0.61 Eosin% % 1.6 Abs Eosin <0.46 k/uL 0.15 Baso% % 0.8 Abs Baso <0.11 k/uL 0.08 Immature Gran % % 0.3 IMMATURE GRANS (ABS) <0.10 k/uL 0.03 NRBC /100 WBC 0.0 Absolute nRBC <0.01 k/uL <0.01 DTYPE Auto Case Report Gynecologic Cytology Report Case: [id number] Specimen adequacy: Satisfactory for interpretation. Cytology Interpretation [...] Chelsi Bowden APRN.CNM documented in this encounter [facility] 06-12-2024 Note Indication Dyspareunia, Evaluation of abnormal [...] M.D. [facility] 06-12-2024 Note HNO ID: [id number] Author: RAIZA DE LA TORRE MD Service: ? Author Type: Physician Type: Progress Notes Filed: 06/12/2024 19:22 Note Text: Cherelle Cosme is a 29 year old female who presented for sales engineer engineered products ultrasound today. Encounter Diagnosis ICD-10-CM 1. Abnormal uterine bleeding (AUB) N93.9 2. Pelvic pain in female R10.2 3. CMT (cervical motion tenderness) N94.9 Please see report under imaging tab. 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 Encounter Diagnosis ICD-10-CM 1. Abnormal uterine bleeding (AUB) N93.9 2. Pelvic pain in female R10.2 3. CMT (cervical motion tenderness) N94.9 Please see report under imaging tab. Raiza De La Torre MD June 12, 2024 7:15 PM documented in this encounter [facility] 06-07-2024 Telephone encounter Note Patient notified. Kassidy Jeffery RN [facility] 06-07-2024 Miscellaneous Notes Patient notified. Kassidy Jeffery RN Left message for patient to call office. Kassidy Jeffery RN ----- Message from Chelsi Bowden APRN.CNM sent at 06/06/2024 5:02 PM EDT ----- Positive for yeast infection, will send diflucan 150mg PO once. documented in this encounter [facility] 06-07-2024 Telephone encounter Note Left message for patient to call office. Kassidy Jeffery RN [facility] 06-07-2024 Telephone encounter Note ----- Message from Chelsi Bowden APRN.CNM sent at 06/06/2024 5:02 PM EDT ----- Positive for yeast infection, will send diflucan 150mg PO once. [facility] 06-03-2024 Note HNO ID: [id number] Author: CHELSI BOWDEN APRN.CNM Service: ? Author Type: Adventure Challenge Instructor Type: Progress Notes Filed: 06/03/2024 15:06 Note [...] uncertain of results. Has not received regular STRAP SETTER care since daughters . Ages 11 and 4. Current partner x 6 years. Smokes 1/2 PPD. Smoking marijuana daily 1-2 times a day, helps with appetite 240lb in March 2024 now 211lb. Not actively trying to lose weight. No nausea but low appetite, bloating. Has not eaten anything today. 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 [facility] 06-03-2024 History of Presen t illness [...] uncertain of results. Has not received regular STRAP SETTER care since daughters . Ages 11 and 4. Current partner x 6 years. Smokes 1/2 PPD. Smoking marijuana daily 1-2 times a day, helps with appetite 240lb in March 2024 now 211lb. Not actively trying to lose weight. No nausea but low appetite, bloating. Has not eaten anything today. 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 Author [...] NAAT, UPPER RESPIRATORY, ROUTINE Carli Sanchez APRN.KEY [facility] Evaluation note No assessment inform ation available [facility] Work Phone: Evaluation note Diagnosis Screening [...] neoplasm of breast documented in this encounter [facility] note* Diagnosis Abnormal uterine bleeding (AUB) Pelvic pain in female Unspecified symptom associated with female genital organs CMT (cervical motion tenderness) Other specified symptom associated with female genital organs documented in this encounter [facility] note* Diagnosis PCOS (polycystic ovarian syndrome)- Primary Polycystic ovaries control counseling General counseling for initiation of other contraceptive measures Pelvic pain in female Unspecified symptom associated with female genital organs CMT (cervical motion tenderness) Other specified symptom associated with female genital organs [facility] Diagnosis Irregular menstruation- Primary Irregular menstrual cycle Encounter for IUD insertion Encounter for insertion of intrauterine contraceptive device [facility] Additional Instructions Insect in ear removed. No signs of injury.[facility] Work Phone: Reason for referral (narrative)* [...] DEVICE Chelsi Bowden, CLAUDIA.JENNIFER [address] [address] [address] Referral ID Status Reason Start Date Expiration Date Visits Requested Visits Authorized [id number] Authorized Auto-Generat ed Referral 06/17/2024 11/01/2024 2 2 * Outpatient Procedure (Routine) - Authorized Specialty Diagnoses / Procedures Referred By Contac t Referred To Contact [facility] Diagnoses PCOS (polycystic ovarian syndrome) Procedures ENDOMETRIAL BIOPSY ENDOMETRIAL BX W/WO ENDOCERVIX BX W/O DILAT SPX Chelsi Bowden APRN.CNM [address] [place] [address] [address] Referral ID Status Reason Start Date Expiration Date Visits Requested Visits Authorized [id number] Authorized Auto-Generat ed Referral 06/17/2024 06/17/2025 1 1 [facility] for referral (narrative)* Outpatient Procedure (Routine) - New Request Specialty Diagnoses / Procedures Referred By Contac t Referred To Contact [facility] Diagnoses Encounter for IUD insertion Procedures INSERT INTRAUTERINE DEVICE INSERT INTRAUTERINE DEVICE Chelsi Bowden APRN.CNM [address] [place] [address] [address] Referral ID Status Reason Start Date Expiration Date Visits Requested Visits Authorized [id number] New Request Auto-Generat ed Referral 07/11/2024 07/11/2025 1 1 * Outpatient Procedure (Routine) - New Request Specialty Diagnoses / Procedures Referred By Contac t Referred To Contact [facility] Diagnoses Irregular menstruation Procedures ENDOMETRIAL BIOPSY ENDOMETRIAL BX W/WO ENDOCERVIX BX W/O DILAT SPX Chelsi Bowden APRN.CNM [address] [place] [address] [address] Referral ID Status Reason Start Date Expiration Date Visits Requested Visits Authorized [id number] New Request Auto-Generat ed Referral 07/11/2024 07/11/2025 1 1 [facility] for visit Narrative* Diagnostic Procedure Only (Routine) - Closed Specialty Diagnoses / Procedures Referred By Tyra gonzales Referred To Contact [facility] Diagnoses Abnormal uterine bleeding (AUB) Pelvic pain in female CMT (cervical motion tenderness) Procedures PELVIC US WHI US PELVIC NONOBSTETRIC REAL-TIME IMAGE COMPLETE Chelsi Bowden APRN.CNM [address] [place] [address] [address] Referral ID Status Reason Start Date Expiration Date V isits Requested Visits Authorized [id number] Closed Auto-Generate d Referral 06/03/2024 06/03/2025 1 1 [facility] Summary Purpose Family History No Family History Records FoundNo Family History Records FoundNo Family History Records FoundNo Family History Records FoundNo Family History Records FoundNo Family History Records Found Advance Directives Advance Directive Response Recorded Date/ Time Living Will No April 21, 2023 4:12am Power of Taco Maker No April 21 4:12am Advance Directive Response [...] CONSULT TO MEDICAL GENETICS - GENERAL OFFICE/OUTPATIENT [facility] 60 MINUTES MEDICAL GENETICS COUNSELING EACH 30 MINUTES Chelsi Bowden APRN.CNM [address] [place] [address] [facility] [address] [place] [address] Referral ID Status Reason Start Date Expiration Date Visits Requested Visits Authorized [id number] Authorized PCP Requested Referral Auto-Generate d Referral 06/03/2024 06/03/2025 1 1 Specialty Diagnoses / Procedures Referred By Contac t Referred To Contact [facility] Diagnoses Abnormal uterine bleeding (AUB) Pelvic pain in female CMT (cervical motion tenderness) Procedures PELVIC US WHI US PELVIC NONOBSTETRIC REAL-TIME IMAGE COMPLETE Chelsi Bowden APRN.CNM [address] [place] [address] [facility] [address] [place] [id number] Referral ID Status Reason Start Date Expiration Date Visits Requested Visits Authorized [id number] Authorized Auto-Generat ed Referral 06/03/2024 06/03/2025 1 1 Additional Source Comments INFORMATION SOURCE (unrecogn ized section and content) DATE CREATED AUTHOR 01/29/2019 [facility] DATE CREATED AUTHOR AUTHOR'S ORGANIZ ATION 04/03/2019 [facility] DATE CREATED AUTHOR AUTHOR'S ORGANIZ ATION 07/14/2021 [facility] DATE CREATED AUTHOR AUTHOR'S ORGANIZ ATION 10/10/2023 [facility] DATE CREATED AUTHOR AUTHOR'S ORGANIZ ATION 07/24/2024 [facility] DATE CREATED AUTHOR AUTHOR'S ORGANIZ ATION 11/12/2024 [facility] Care Teams (unrecognized sec tion and content) [...] Team Status: Active Member Role Status Dates [facility] Provider Attending Provider Active St art: [...] or prosecute any alcohol or drug abuse patient.[facility] the event this information is protected by the Federal Confidentiality of Alcohol and Drug Abuse Patient Records regulations: The Federal rules restrict any use of the information to criminally investigate or prosecute any alcohol or drug abuse patient.[facility] the event this information is protected by the Federal Confidentiality of Alcohol and Drug Abuse Patient Records regulations: The Federal rules restrict any use of the information to criminally investigate or prosecute any alcohol or drug abuse patient.[facility] the event this information is protected by the Federal Confidentiality of Alcohol and Drug Abuse Patient Records regulations: The Federal rules restrict any use of the information to criminally investigate or prosecute any alcohol or drug abuse patient.[facility] the event this information is protected by the Federal Confidentiality of Alcohol and Drug Abuse Patient Records regulations: The Federal rules restrict any use of the information to criminally investigate or prosecute any alcohol or drug abuse patient.[facility] Reason for Visit (unrecogniz ed section and content) Reason Comments Menstrual Problem Multiple periods a m onth, pain and bleeding with intercourse Reason Comments Results Reason Comments Discussion Reason Onset Date Comments Insertion Of IUD 07/11/2024 Endometrial Biopsy Specialty Diagnoses / Procedures Referred By Tyra gonzales Referred To Contact [facility] Diagnoses PCOS (polycystic ovarian syndrome) Procedures ENDOMETRIAL BIOPSY ENDOMETRIAL BX W/WO ENDOCERVIX BX W/O DILAT SPX Chelsi Bowden APRN.CN [address] [place] [address] [facility] [address] [place] [address] Referral ID Status Reason Start Date Expiration Date V isits Requested Visits Authorized [id number] Closed Auto-Generate d Referral 06/17/2024 06/17/2025 1 [...] BE BASED ON THE PRIMARY CLINICAL RECORDS. [facility] [employer] [facility]. provides no warranty or guarantee of the accuracy or completeness of information in this document.
[2025-05-07 16:50] LABS: Anion Gap 17 (5-15); BUN 9 mg/dL (4-19); BUN/Creat Ratio 8.3 RATIO (10-20); Calcium,Total 10.4 mg/dL (7.6-11.0); Carbon Dioxide 18.2 mmol/L (21.0-32.0); Chloride 100 mmol/L (98-108); Estimated Creatinine Clearance 88.66 ml/min (50-250); Glucose 93 mg/dL (70-99); Potassium 3.4 mmol/L (3.3-5.1)
[2025-05-07 18:01] LABS: Mucous, Urine 0 SEEN /hpf (<or=2+)
[2025-05-07 18:22] LABS: Color, Urine Yellow (Yellow); Glucose, Dipstick Normal (Normal); Ketone-Dipstick 5 mg/dl (Negative); Leukocyte Esterase-Dipstick 500 /ul (Negative); Nitrite-Dipstick Negative (Negative); Occult Blood-Urine 250 /ul (Negative); Protein-Dipstick 30 mg/dl (Negative); Specific Gravity, Urine 1.020 (1.002-1.030); Urine Bilirubin Dipstick Negative (Negative)
--- NOTE | 2025-05-07 18:25 | CM.ED ---
Social Work Date of referral: 05/07/2025 Reason for referral: No Primary Care Physician (PCP) on file Referred by: Social Work Identification Patient provided consent. Patient confirmed she does not have a PCP. Bean Viner provided verbal and written resources on how to get connected to a PCP and gave handout for [facility]. Patient expressed appreciation for resources and denied any other needs at this time. Felicia Brown, SOLIDWORKS DRAFTER, REFINERY TECHNICIAN
--- NOTE | 2025-05-07 18:25 | CM.ED ---
Social Work Date of referral: 05/07/2025 Reason for referral: No Primary Care Physician (PCP) on file Referred by: Social Work Identification Patient provided consent. Patient confirmed she does not have a PCP. Dairy Farmer provided verbal and written resources on how to get connected to a PCP and gave handout for [facility]. Patient expressed appreciation for resources and denied any other needs at this time. Felicia Brown, CATEGORY DIRECTOR, TANK TRUCK OPERATOR
[2025-05-07 18:34] LABS: Red Blood Cells-Urine 10-25 SEEN /hpf (0-5); Squamous Epithelial Cells - UA 10-25 SEEN /hpf (5-10)
[2025-05-07 18:36] VITALS: BP 108/68; PULSE 50; RESP 16; TEMP 36.9; O2SAT 98
== END 2025-05-07 18:56 | disposition home or self-care (01) ==
PROVIDERS: Emergency Provider Emergency Medicine; Visit Provider Emergency Medicine
DX: R11.2 Nausea with vomiting, unspecified (principal); R19.7 Diarrhea, unspecified; R10.84 Generalized abdominal pain; E87.20 Acidosis, unspecified; R03.0 Elevated blood-pressure reading, without diagnosis of hypertension; E86.0 Dehydration; F17.210 Nicotine dependence, cigarettes, uncomplicated; F17.290 Nicotine dependence, other tobacco product, uncomplicated
CPT/HCPCS: 36415; 80048; 81001; 84703; 85025; 96361; 96374; 96376; 99283; A4216; J2405

== ENCOUNTER 2025-08-08 15:22 | Emergency (ER) | payer MEDICAID, SELFPAY ==
[2025-08-08 15:23] VITALS: BP 124/89; PULSE 92; RESP 16; TEMP 36.8; O2SAT 98; BMI 32.4
[2025-08-08] MEDS: HYDROcodone Bitartrate/Apap 5/325 Tablet PO (15:47)
--- NOTE | 2025-08-08 15:51 | EX.ED.DYSGE1 ---
HPI History of Present Illness Chief Complaint: Dental Narrative Narrative: Patient is a 30-year-old female with past medical history of anxiety, depression who presented to the emergency department with a chief complaint of dental pain. States that she has had pain going on for approximately 9 days and states that she does not have a dentist she states that she is to have 1 however she has been required to pay a significant amount of money that she states that she cannot afford secondary to her insurance therefore she stopped going there. States that she has been taking a lot of ibuprofen and Excedrin to try to diminish the pain however notes that after a very short period of time of taking this medication it quickly wears off causing her severe pain. She states that she could not take it any longer therefore she came here for further evaluation management. States that she has been eating and drinking as well as swallowing without any difficulty. [facility] Medical History Anxiety Depression Home Medications ?Medication ?Instructions ?Recorded ?Last Taken ?Type ondansetron 4 mg disintegrating 4 mg PO Q8H PRN PRN Nausea #6 tabs 05/07/25 Unknown Rx tablet clindamycin HCl 300 mg capsule 300 mg PO TID 5 days #15 caps 08/08/25 Unknown Rx (Cleocin HCl) ondansetron 4 mg disintegrating 4 mg PO Q6H PRN nausea and 08/08/25 Unknown Rx tablet vomiting #20 tabs oxycodone-acetaminophen 5 mg-325 1 tab PO Q6H PRN pain 3 days #12 08/08/25 Unknown Rx mg tablet (Endocet) tabs Allergy/AdvReac Type Severity Reaction Status Date / Time amoxicillin Allergy Anaphylaxis Verified 08/08/25 15:25 Penicillins Allergy Anaphylaxis Verified 08/08/25 15:25 Surgical History History of tonsillectomy Social History household members: significant other Smoking Status: Current every day smoker tobacco type: cigarettes and e-cigarettes ROS ROS ED ROS Narrative Constitutional: Denies any fevers or chills Eyes, ears, nose, throat: Complains of dental pain as noted above Neurological: Denies any numbness, wheeze, tingling Skin: Denies rashes or lesions EXAM Physical Exam Narrative Exam Narrative: General: Patient is lying in bed rest comfortably did not appear to be in acute distress Head: Atraumatic, normocephalic Eyes, ears, nose, throat: No sublingual swelling noted, patient has multiple dental caries noted with a cracked tooth back right wisdom tooth no periapical abscess or area of fluctuance noted Neck: Soft, supple, trachea midline no concern for Ghanshyam's angina Cardiovascular: Regular rate Neurological: Patient follow commands knew that she was at [facility] the year is 2024 Skin: Warm, dry, intact no rashes or lesions noted Const Vital Signs: 08/08/25 15:23 Temperature 98.2 F Temperature Source Oral Pulse Rate 92 Respiratory Rate 16 Blood Pressure 124/89 H Blood Pressure Mean 100 Pulse Ox 98 Oxygen Delivery Method Room Air MDM MDM MDM Narrative Medical decision making narrative: Patient is a 30-year-old female who presents to the emergency department chief complaint of dental pain. On the differential diagnose includes but not limited to dental carry, cracked tooth,. Periapical abscess although have low suspicion for this clinically. Patient be given [place], Zofran and her first dose of clindamycin and she will be reevaluated. On reevaluation patient she is found better she like to go home at this point time. Social work saw the patient and provided dental referral list as well. She was advised to call these numbers to get into see a dentist. Prescription sent for antibiotics clindamycin, Endocet and Zofran sent to the pharmacy. She is advised to rotate Tylenol and ibuprofen for mild to moderate pain. She is encouraged return with worsening symptoms or concerns. She is agreeable to plan all question concerns answered she was discharged home in stable condition. She is advised to not operate anything under the influence the narcotic Discharge Plan Triage Chief Complaint: Dental ED Provider: Mina Talley Dx/Rx/DC Orders Clinical Impression: Pain, dental, Dental caries, Broken or cracked tooth, nontraumatic Prescriptions: New ondansetron 4 mg tablet,disintegrating 4 mg PO Q6H PRN (Reason: nausea and vomiting) Qty: 20 0RF clindamycin HCl [Cleocin HCl] 300 mg capsule 300 mg PO TID 5 Days Qty: 15 0RF oxycodone-acetaminophen [Endocet] 5-325 mg tablet 1 tab PO Q6H PRN (Reason: pain) 3 Days Qty: 12 0RF No Action ondansetron 4 mg tablet,disintegrating 4 mg PO Q8H PRN PRN (Reason: Nausea) Qty: 6 0RF Primary Care Provider: Care Physician,No Primary Referrals: Care Physician,No Primary [Primary Care Provider, Medical] Activity Restrictions/Additional Instructions: Follow-up with one of the dentist that are on the dental referral list. Take antibiotics as prescribed. Rotate Tylenol and ibuprofen [id number] for mild to moderate pain when you do this you can take something every 3 hours for pain with the max dose Tylenol in 24 hours 4000 mg and the max dose of ibuprofen in 24 hours 3200 mg. Use the Endocet and Zofran as prescribed do not operate anything under the influence this medication as it will make you sleepy drowsy. Return with worsening symptoms or other concerns. Print Language: Nepali Disposition Disposition: Home, Self Care
--- NOTE | 2025-08-08 16:18 | CM.ED ---
Social Work Patient presented to ED with dental pain. Resource list of dental and oral surgeon offices and clinics were provided to patient. Patient thankful for same. No further needs at this time. Penny Santamaria, SEX CRIMES DETECTIVE, FUNNEL SETTER
[2025-08-08 16:21] VITALS: BP 124/89; PULSE 92; RESP 16; TEMP 36.8; O2SAT 98
== END 2025-08-08 16:22 | disposition home or self-care (01) ==
PROVIDERS: Emergency Provider Emergency Medicine; Visit Provider Emergency Medicine
DX: K04.7 Periapical abscess without sinus (principal); F17.210 Nicotine dependence, cigarettes, uncomplicated; K03.81 Cracked tooth; F17.290 Nicotine dependence, other tobacco product, uncomplicated
CPT/HCPCS: 99283

== ENCOUNTER 2025-09-05 07:36 | Emergency (ER) | payer SELFPAY ==
[2025-09-05 07:36] VITALS: BP 143/87; PULSE 56; RESP 16; TEMP 36.7; O2SAT 100; BMI 33.0
--- NOTE | 2025-09-05 07:44 | ED.VIS.DENTA ---
HPI History of Present Illness Chief Complaint: Dental Detail of Chief Complaint: Dental pain Informant: patient Narrative Narrative: Patient presents with right upper dental pain that been going on for over a month. He was seen in the emergency department about a month ago and was treated with clindamycin and. Did not feel like she got completely better and has not followed up with a dentist because of her insurance coverage. She has insurance but there are certain stipulations she needs to me before she can be seen apparently patient denies fever. Worsening pain over the last couple of days and more severe last night. PFSH PFS Medical History Anxiety Depression Home Medications ?Medication ?Instructions ?Recorded ?Last Taken ?Type ondansetron 4 mg disintegrating 4 mg PO Q8H PRN PRN Nausea #6 tabs 05/07/25 Unknown Rx tablet clindamycin HCl 300 mg capsule 300 mg PO TID 5 days #15 caps 08/08/25 Unknown Rx (Cleocin HCl) ondansetron 4 mg disintegrating 4 mg PO Q6H PRN nausea and 08/08/25 Unknown Rx tablet vomiting #20 tabs oxycodone-acetaminophen 5 mg-325 1 tab PO Q6H PRN pain 3 days #12 08/08/25 Unknown Rx mg tablet (Endocet) tabs clindamycin HCl 300 mg capsule 300 mg PO Q6H #40 CAPSULES 09/05/25 Unknown Rx (Cleocin HCl) hydrocodone-acetaminophen 5-325mg 1 tab PO Q4H PRN PRN Pain 2 days 09/05/25 Unknown Rx 5mg-325mg #10 TABLETS Allergy/AdvReac Type Severity Reaction Status Date / Time amoxicillin Allergy Anaphylaxis Verified 09/05/25 07:38 Penicillins Allergy Anaphylaxis Verified 09/05/25 07:38 Surgical History History of tonsillectomy Social History household members: significant other Smoking Status: Current every day smoker tobacco type: cigarettes and e-cigarettes ROS ROS ED Review of Systems ROS Unobtainable: other Constitutional Constitutional ED: Reports lethargy; Denies chills, fever(s), sweats or weight loss Eyes Eyes: Denies blurry vision, change in vision or diplopia ENT ENT ED: Reports other Details: Dental pain ; Denies rhinorrhea or sore throat Cardiovascular Cardiovascular: Denies chest pain, orthopnea or racing heartbeat Respiratory/Chest Respiratory/Chest: Denies cough, dyspnea, dyspnea on exertion, orthopnea or sputum Gastrointestinal Gastrointestinal: Denies abdominal pain, diarrhea, nausea or vomiting Genitourinary Genitourinary ED: Denies dysuria, hematuria or urinary frequency Musculoskeletal Musculoskeletal: Denies arthralgias, back pain, myalgias or neck pain Integumentary Denies abscess, Abrasions or rash Neurologic Neurologic: Denies headache(s) or weakness Psychiatric Psychiatric: Denies anxiety, depression or suicidal thoughts Endocrine Endocrinology: Denies polydipsia, polyphagia or polyuria Hematologic/Lymphatic Hematologic/Lymphatic: Denies easy bleeding, easy bruising or lymphadenopathy Allergic/Immunologic Allergic/Immunologic ED: Denies mouth swelling, tongue swelling or urticaria EXAM Physical Exam Const Vital Signs: 09/05/25 07:36 Temperature 98.1 F Temperature Source Oral Pulse Rate 56 L Respiratory Rate 16 Blood Pressure 143/87 H Blood Pressure Mean 105 Pulse Ox 100 Oxygen Delivery Method Room Air Positive well nourished and well developed General Appearance ED: well developed and NAD HEENT Reports TM's clear and moist mucous membranes HEENT Narrative: Dentition-patient has a broken and carry tooth #5 that is tender to palpation. There is no gingival erythema or abscess noted. She has very poor dentition in general. No facial swelling. No facial cellulitis normocephalic and atraumatic; Negative for trauma or tenderness Tympanic Membrane ED: Yes TM's clear Eyes PERRL and EOMs intact bilaterally General Eye ED: Negative for pale conjunctiva or scleral icterus Neck no lymphadenopathy, supple and no JVD General: Negative for tenderness Chest Wall inspection of chest normal and palpation of chest normal Chest: Negative for tenderness Resp normal respiratory effort and clear to auscultation bilaterally Effort and Inspection: Negative for respiratory distress or pain with movement Auscultation: Negative for rhonchi, wheezes or diminished lung sounds Cardio regular rate, regular rhythm, S1 normal heart sound, S2 normal heart sound and no murmurs Peripheral Pulses: pulses 2+ throughout GI normal to inspection, nondistended, normoactive bowel sounds, soft to palpation, non-tender, non-distended and no masses Back/Spine no CVA tenderness and no thoracic nor lumbar tenderness Extremity normal to inspection General Extremety ED: Negative for edema General Extremity: Negative for edema Neuro oriented x3, CN's II-XII intact bilaterally, no sensory deficits noted and gait normal Sensorium / Orientation: awake, alert, oriented to person, oriented to place and oriented to time Motor Exam: strength 5/5 throughout and strength abnormal Psych mental status grossly normal Skin no rashes or lesions noted and no wounds MDM MDM MDM Narrative Medical decision making narrative: Patient with dental pain. Poor dentition. Broken and tender right upper tooth #5. Will start on clindamycin and give [place] for pain. Advised to follow-up with a dentist for definitive care. Discharge Plan Triage Chief Complaint: Dental ED Provider: Edis Morris Dx/Rx/DC Orders Clinical Impression: Pain, dental, Dental caries Instructions: ED Dental Pain, ED Dental Cavity Prescriptions: New clindamycin HCl [Cleocin HCl] 300 mg capsule 300 mg PO Q6H Qty: 40 0RF hydrocodone-acetaminophen 5-325 mg tablet 1 tab PO Q4H PRN PRN (Reason: Pain) 2 Days Qty: 10 0RF No Action ondansetron 4 mg tablet,disintegrating 4 mg PO Q6H PRN (Reason: nausea and vomiting) Qty: 20 0RF clindamycin HCl [Cleocin HCl] 300 mg capsule 300 mg PO TID 5 Days Qty: 15 0RF oxycodone-acetaminophen [Endocet] 5-325 mg tablet 1 tab PO Q6H PRN (Reason: pain) 3 Days Qty: 12 0RF ondansetron 4 mg tablet,disintegrating 4 mg PO Q8H PRN PRN (Reason: Nausea) Qty: 6 0RF Primary Care Provider: Care Physician,No Primary Referrals: Care Physician,No Primary [Primary Care Provider, Medical] Activity Restrictions/Additional Instructions: Follow-up with a dentist that the earliest possible time. Print Language: Telugu Disposition Disposition: Home, Self Care
[2025-09-05] MEDS: HYDROcodone Bitartrate/Apap 5/325 Tablet PO (08:08)
[2025-09-05 08:11] VITALS: BP 141/78; PULSE 78; RESP 16; TEMP 36.6; O2SAT 99
== END 2025-09-05 08:18 | disposition home or self-care (01) ==
LOC: ED 07:57
PROVIDERS: Emergency Provider Emergency Medicine; Visit Provider Emergency Medicine
DX: K08.89 Other specified disorders of teeth and supporting structures (principal); K02.9 Dental caries, unspecified; F17.210 Nicotine dependence, cigarettes, uncomplicated; F17.290 Nicotine dependence, other tobacco product, uncomplicated
CPT/HCPCS: 99283